=== PATIENT | male | born 1945 | race Caucasian/White ===

== ENCOUNTER 2016-12-14 12:33 | Emergency (ER) | payer MEDICARE ==
[2016-12-14 13:04] VITALS: BP 155/96
--- NOTE | 2016-12-14 14:04 | EDM.PDOC ---
ED HPI Trauma - General Chief Complaint: Upper Extremity Injury/Pain Stated Complaint: HURT LT SHOULDER & HIP Time Seen by Provider: 12/14/16 13:03 Source: Reports: Patient History Limitations: Reports: No limitations - History of Present Illness INITIAL COMMENTS - FREE TEXT/NARRATIVE: History of present illness: [This gentleman was stepping up onto a stool yesterday and [place] and it flipped and he fell onto his left shoulder and left hip. He has a bruised hip and is able ambulate on it to his left shoulder is the reason he came in he is wondering if it's broken as he is in so much pain. He is unable to abduct his left arm he needs had prior shoulder surgery for rotator cuff on that arm.] Review of systems: As per history of present illness and below otherwise all systems reviewed and negative. Past medical history: As per history of present illness and as reviewed below otherwise noncontributory. Surgical history: As per history of present illness and as reviewed below otherwise noncontributory. Social history: No reported history of drug or alcohol abuse. Family history: As per history of present illness and as reviewed below otherwise noncontributory. Physical exam: HEENT: Atraumatic, normocephalic, pupils reactive, negative for conjunctival pallor or scleral icterus, mucous membranes moist, throat clear, neck supple, nontender, trachea midline. Lungs: Clear to auscultation, breath sounds equal bilaterally, chest nontender. Heart: S1S2, regular, negative for clicks, rubs, or JVD. Abdomen: Soft, nondistended, nontender. Negative for masses or hepatosplenomegaly. Negative for costovertebral tenderness. Pelvis: Stable nontender. Genitourinary: Deferred. Rectal: Deferred. Extremities: He has diffuse tenderness about the left shoulder and is unable to AB duct at that arm no bruising is present at this time the x-rays do not show any fractures there do appear to be a couple screws from a prior surgery present. Neuro: Awake, alert, oriented. Cranial nerves II through XII unremarkable. Cerebellum unremarkable. Motor and sensory unremarkable throughout. Exam nonfocal. Diagnostics: [] Therapeutics: [] Impression: [Contusion left shoulder with possible rotator cuff] Plan: [He'll followup in the clinic if he is not recovering to his satisfaction and he may need MRI to evaluate his shoulder injury further] Definitive disposition and diagnosis as appropriate pending reevaluation and review of above. Allergies/ADRs: Allergies No Known Allergies Allergy (Verified 03/23/15 13:15) Home Medications: Ambulatory Orders Calcium Carbonate [Calcium] 1 tab PO DAILY 05/31/14 [Confirmed 12/14/16] Gabapentin [Neurontin] 600 mg PO BID 05/31/14 [Confirmed 12/14/16] Multivitamin with Minerals [Multiple Vitamin] 1 each PO ASDIRECTED 05/31/14 [ Confirmed 12/14/16] Venlafaxine [Effexor] 150 mg PO DAILY 05/31/14 [Confirmed 12/14/16] Warfarin [Coumadin] 2.5 mg PO ASDIRECTED 05/31/14 [Confirmed 12/14/16] Warfarin [Coumadin] 5 mg PO DAILY 05/31/14 [Confirmed 12/14/16] traMADol [Ultram] 50 mg PO Q6H PRN 05/31/14 [Confirmed 12/14/16] Ferrous Sulfate 324 mg PO BID 09/09/14 [Confirmed 12/14/16] Furosemide [Lasix] 20 mg PO ASDIRECTED 09/09/14 [Confirmed 12/14/16] metFORMIN [Glucophage] 1,000 mg PO BIDM 09/09/14 [Confirmed 12/14/16] Acetaminophen [Tylenol] 325 mg PO Q6H PRN 03/23/15 [Confirmed 12/14/16] Cyanocobalamin (Vitamin B-12) [B-12] 1,000 mcg PO DAILY 03/23/15 [Confirmed ] atorvaSTATin [Lipitor] 10 mg PO BEDTIME 03/23/15 [Confirmed 12/14/16] Past Medical History Other HEENT History: wears glasses Cardiovascular History: Reports: High cholesterol Gastrointestinal History: Reports: Other (see below) Other Gastrointestinal History: RNY 2010 Musculoskeletal History: Reports: Osteoarthritis Endocrine/Metabolic History: Reports: Diabetes, type II Oncologic (Cancer) History: Reports: Prostate - Infectious Disease History Infectious Disease History: Reports: Chicken pox, Measles, Mumps, Rubella - Past Surgical History Musculoskeletal Surgical History: Reports: Hip replacement Social & Family History - Tobacco Use Smoking Status *Q: Former Smoker Years of Tobacco use: 29 Packs/Tins Daily: 1 Used Tobacco, but Quit: Yes Month Tobacco Last Used: 1993 Second Hand Smoke Exposure: No - Caffeine Use Caffeine Use: Reports: Coffee Other Caffeine Use: 2. cups per day - Alcohol Use Days Per Week of Alcohol Use: 0 Number of Drinks Per Day: 1 Total Drinks Per Week: 0 - Recreational Drug Use Recreational Drug Use: No Review of Systems - Review of Systems Review Of Systems: ROS reveals no pertinent complaints other than HPI. Trauma Exam - Physical Exam Exam: See Below Course - Vital Signs Last Recorded V/S: Last Vital Signs Temp 37.1 C 12/14/16 13:00 Pulse 64 12/14/16 13:00 Resp 16 12/14/16 13:00 BP 155/96 H 12/14/16 13:00 Pulse Ox 94 L 12/14/16 13:00 - Orders/Labs/Meds Orders: Active Orders 24 hr Category Date Time Status Shoulder Comp Lt [CR] Stat Exams 12/14/16 13:07 Taken Departure - Departure Time of Disposition: 14:03 Disposition: Home, Self-Care 01 Condition: good Clinical Impression: Contusion of left shoulder Qualifiers: Encounter type: initial encounter Qualified Code(s): S40.012A - Contusion of left shoulder, initial encounter Forms: ED Department Discharge Additional Instructions: As per our discussion if in a few weeks or so and lateral right shoulder he should follow up in the clinic as you may need an MRI to further evaluate this injury - My Orders Last 24 Hours: My Active Orders 12/14/16 13:07 Shoulder Comp Lt [CR] Stat - Assessment/Plan Last 24 Hours: My Active Orders 12/14/16 13:07 Shoulder Comp Lt [CR] Stat
--- NOTE | 2016-12-15 08:52 | CR ---
Shoulder Comp Lt INDICATION: fall, pain FINDINGS: Mild hypertrophic changes AC and glenohumeral joints. Fixation screws proximal humerus. No evidence for acute fracture.
== END 2016-12-14 14:14 | disposition home or self-care (01) ==
LOC: JP.ED 12:33
DX: S40.012A Contusion of left shoulder, initial encounter (principal); E78.00 Pure hypercholesterolemia, unspecified; E11.9 Type 2 diabetes mellitus without complications; Z85.46 Personal history of malignant neoplasm of prostate; Z96.649 Presence of unspecified artificial hip joint; Z87.891 Personal history of nicotine dependence; Z79.01 Long term (current) use of anticoagulants; Z79.899 Other long term (current) drug therapy; W19.XXXA Unspecified fall, initial encounter
CPT/HCPCS: 73030-26-LT; 73030-LT; 99282; 99284

== ENCOUNTER 2017-11-17 02:55 | Emergency (ER) | payer MEDICARE ==
[2017-11-17 03:18] VITALS: BP 164/89
--- NOTE | 2017-11-17 03:29 | EDM.PDOC ---
ED HPI GENERAL MEDICAL PROBLEM - General Chief Complaint: Respiratory Problem Stated Complaint: [facility] Time Seen by Provider: 11/17/17 03:02 Source of Information: Reports: Patient, EMS, Old Records, RN Notes Reviewed History Limitations: Reports: No Limitations - History of Present Illness INITIAL COMMENTS - FREE TEXT/NARRATIVE: EMS arrival, did receive albuterol and ipratropium by nebulizer prior to arrival without any appreciable improvement Chief complaint Short of breath History of present illness 72-year-old male with history of osteoarthritis with joint replacements, type 2 diabetes, depression, prostate cancer and 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 Since last week he's had some shortness of breath. 8 days ago he found himself short of breath and had a get up and go walk to the mailbox outside a couple of times. Tonight however was much worse he couldn't lay down at all when he tried to go to bed at 11 PM. He tried is a home oxygen even that didn't help. It did help by getting up walking outside and sweeping the back of snow. He's had problems like this before where he gets short of breath laying down and he'll get up and fall asleep in his recliner. However tonight he was much worse and he couldn't sleep at all. He has been diagnosed with sleep apnea, has been prescribed C Pap machine but he finds he can't stand using it. He has home oxygen for use as needed He's noticed some 10 pounds awaking from his previous weight of 240 pounds. His ankles are bit more swollen usual and also there is some swelling in his left wrist. No chest pain but he does feel short of breath when he lays down. No nausea or vomiting no fever or chills. Was on his own with his dog EMS reports that his blood sugar was 341 tonight. - Related Data Allergies Allergy/AdvReac Type Severity Reaction Status Date / Time No Known Allergies Allergy Verified 03/23/15 13:15 Home Meds: Home Meds Calcium Carbonate [Calcium] 1 tab PO DAILY 05/31/14 [History] Gabapentin [Neurontin] 600 mg PO TID 05/31/14 [History] Multivitamin with Minerals [Multiple Vitamin] 1 each PO ASDIRECTED 05/31/14 [ History] Venlafaxine [Effexor] 150 mg PO DAILY 05/31/14 [History] Warfarin [Coumadin] 5 mg PO DAILY 05/31/14 [History] Warfarin [Coumadin] 7.5 mg PO ASDIRECTED 05/31/14 [History] traMADol [Ultram] 50 mg PO Q6H PRN 05/31/14 [History] Ferrous Sulfate 324 mg PO BID 09/09/14 [History] Furosemide [Lasix] 20 mg PO ASDIRECTED 09/09/14 [History] metFORMIN [Glucophage] 1,000 mg PO BIDM 09/09/14 [History] Acetaminophen [Tylenol] 325 mg PO Q6H PRN 03/23/15 [History] Cyanocobalamin (Vitamin B-12) [B-12] 1,000 mcg PO DAILY 03/23/15 [History] atorvaSTATin [Lipitor] 10 mg PO BEDTIME 03/23/15 [History] Bacitracin [Bacitracin Oint 1 GM] 1 dose TOP BID 11/17/17 [History] Betamethasone/Clotrimazole [Lotrisone] 1 applic TOP BID 11/17/17 [History] Calciium Citrate-Vitamin D 500 3 tab PO DAILY 11/17/17 [History] Cephalexin [Cephalexin] 500 mg PO Q8HR 11/17/17 [History] Cholecalciferol (Vitamin D3) [Vitamin D3] 5,000 unit PO DAILY 11/17/17 [History] Cyanocobalamin (Vitamin B-12) [Vitamin B-12] 1,000 mcg INJECT ASDIRECTED [History] Insulin Glargine,Hum.Rec.Anlog [Toujeo Solostar] 30 unit SQ DAILY 11/17/17 [ History] Magnesium Oxide [Magnesium] 400 mg PO DAILY 11/17/17 [History] Omeprazole 40 mg PO DAILY 11/17/17 [History] SitaGLIPtin [Januvia] 100 mg PO DAILY 11/17/17 [History] Triamcinolone Acetonide [Kenalog 0.1% Crm] 1 applic TOP TID 11/17/17 [History] glipiZIDE [Glucotrol] 2.2 mg PO BID 11/17/17 [History] Past Medical History Other HEENT History: wears glasses Cardiovascular History: Reports: High Cholesterol Gastrointestinal History: Reports: Other (See Below) Other Gastrointestinal History: RNY 2011 Musculoskeletal History: Reports: Osteoarthritis Endocrine/Metabolic History: Reports: Diabetes, Type II Oncologic (Cancer) History: Reports: Prostate - Infectious Disease History Infectious Disease History: Reports: Chicken Pox, Measles, Mumps, Rubella - Past Surgical History Musculoskeletal Surgical History: Reports: Hip Replacement Social & Family History - Tobacco Use Smoking Status *Q: Former Smoker Years of Tobacco use: 29 Packs/Tins Daily: 1 Used Tobacco, but Quit: Yes Month Tobacco Last Used: 1993 Second Hand Smoke Exposure: No - Caffeine Use Caffeine Use: Reports: Coffee Other Caffeine Use: 2. cups per day - Alcohol Use Days Per Week of Alcohol Use: 0 Number of Drinks Per Day: 1 Total Drinks Per Week: 0 - Recreational Drug Use Recreational Drug Use: No ED ROS GENERAL - Review of Systems Review Of Systems: See Below Constitutional: Reports: Weight Gain. Denies: Fever, Chills, Diaphoresis, Decreased Appetite HEENT: Denies: Ear Pain, Rhinitis, Throat Pain Respiratory: Reports: Shortness of Breath. Denies: Wheezing, Pleuritic Chest Pain, Cough, Sputum Cardiovascular: Reports: Dyspnea on Exertion, Other (Short of breath when supine ). Denies: Chest Pain, Blood Pressure Problem, Lightheadedness, Syncope Endocrine: Reports: No Symptoms GI/Abdominal: Reports: No Symptoms : Reports: No Symptoms Skin: Reports: Wound (Pressure sore on his left side) Neurological: Reports: No Symptoms ED EXAM, GENERAL - Physical Exam Exam: See Below Exam Limited By: No Limitations General Appearance: Alert, Anxious, Mild Distress, Other (Mild elevation of blood pressure other vital signs are normal including saturation, no difficulty speaking while he is sitting upright, color normal, quite talkative) Eye Exam: Bilateral Eye: EOMI, Normal Inspection Ears: Normal External Exam, Hearing Grossly Normal Nose: Normal Inspection, Normal Mucosa Throat/Mouth: Normal Inspection, Normal Oropharynx, Normal Voice Head: Atraumatic Neck: Normal Inspection, Supple, Other (No carotid bruit). No: Lymphadenopathy (R), Lymphadenopathy (L) Respiratory/Chest: No Respiratory Distress, No Accessory Muscle Use, Chest Non- Tender, Rales (Especially in the posterior aspect of his lungs). No: Prolonged Expiration Cardiovascular: Normal Peripheral Pulses, Regular Rate, Rhythm, No Murmur GI/Abdominal: Normal Bowel Sounds, Soft, Other (Ventral diastases) Back Exam: Normal Inspection Extremities: Non-Tender, Pedal Edema Neurological: Alert, Oriented, No Motor/Sensory Deficits Psychiatric: Normal Mood Skin Exam: Warm, Dry, Normal Color, No Rash Course - Vital Signs Last Recorded V/S: Last Vital Signs Temp 36.2 C 11/17/17 03:15 Pulse 80 11/17/17 03:15 Resp 20 11/17/17 03:15 BP 164/89 H 11/17/17 03:15 Pulse Ox 94 L 11/17/17 03:15 - Orders/Labs/Meds Orders: Active Orders 24 hr Category Date Time Status EKG Documentation Completion [RC] ASDIRECTED Care 11/17/17 03:22 Active Chest 1V Frontal [CR] Stat Exams 11/17/17 03:22 Taken EKG 12 Lead [EK] Routine Ther 11/17/17 03:21 Ordered Labs: Laboratory Tests 11/17/17 11/17/17 11/17/17 Range/Units 04:05 04:05 04:05 WBC 4.5 (4.5-11.0) K/uL RBC 4.77 (4.30-5.90) M/uL Hgb 15.0 (12.0-15.0) g/dL Hct 44.3 (40.0-54.0) % MCV 93 (80-98) fL MCH 31 (27-31) pg MCHC 34 (32-36) % Plt Count 179 (150-400) K/uL PT (9.5-12.0) sec INR (0.80-1.20) Sodium 137 L (140-148) mmol/L Potassium 4.2 (3.6-5.2) mmol/L Chloride 104 (100-108) mmol/L Carbon Dioxide 24 (21-32) mmol/L Anion Gap 13.2 (5.0-14.0) mmol/L BUN 9 (7-18) mg/dL Creatinine 0.7 L (0.8-1.3) mg/dL Est Cr Clr Drug Dosing 86.35 mL/min Estimated GFR (MDRD) > 60 (>60) Glucose 323 H (74-106) mg/dL Calcium 8.6 (8.5-10.1) mg/dL Troponin I < 0.017 (0.000-0.056) ng/mL NT-Pro-B Natriuret Pep 240 H (5-125) pg/mL 11/17/17 Range/Units 04:05 WBC (4.5-11.0) K/uL RBC (4.30-5.90) M/uL Hgb (12.0-15.0) g/dL Hct (40.0-54.0) % MCV (80-98) fL MCH (27-31) pg MCHC (32-36) % Plt Count (150-400) K/uL PT 13.8 H (9.5-12.0) sec INR 1.28 H D (0.80-1.20) Sodium (140-148) mmol/L Potassium (3.6-5.2) mmol/L Chloride (100-108) mmol/L Carbon Dioxide (21-32) mmol/L Anion Gap (5.0-14.0) mmol/L BUN (7-18) mg/dL Creatinine (0.8-1.3) mg/dL Est Cr Clr Drug Dosing mL/min Estimated GFR (MDRD) (>60) Glucose (74-106) mg/dL Calcium (8.5-10.1) mg/dL Troponin I (0.000-0.056) ng/mL NT-Pro-B Natriuret Pep (5-125) pg/mL - Re-Assessments/Exams Free Text/Narrative Re-Assessment/Exam: 11/17/17 03:31 72-year-old male with history of diabetes fluid retention DVT Presenting with shortness of breath but only when he is supine. Feels better when he is upright and breathing the outside cold air actually helps him feel better. Differential diagnosis includes CHF/pulmonary edema, infection, COPD, other pulmonary disease, heart disease Investigations 11/17/17 04:24 Chest x-ray by my interpretation shows cardiomegaly but no effusions or infiltrates EKG shows sinus rhythm with slight irregularity, left axis, nonspecific changes , rate 64 11/17/17 05:02 Patient slept in the room declined upwards Sodium 137 and remaining electively lites normal BUN/creatinine normal Troponin normal Modest increased in BMP Blood sugars 323 Likely fluid overload, increase furosemide to 40 mg daily for 1 week Follow-up primary care provider 1 week Departure - Departure Time of Disposition: 05:03 Disposition: Home, Self-Care 01 Condition: Good Clinical Impression: Fluid retention, Orthopnea - Discharge Information Instructions: Shortness of Breath, Adult, [id number] Referrals: PCP,None [Primary Care Provider] - Forms: ED Department Discharge Additional Instructions: Some weight gain swelling of your wrists and ankles indicates fluid retention This results in increased breathing when you are laying down, had seizure to breathe when you're reclining upwards. No sign of pneumonia or heart attack. Increase furosemide to 40 mg once daily for a week, and then make an appointment to get rechecked in a week Get checked sooner if you have severe shortness of breath, weakness, falling - My Orders Last 24 Hours: My Active Orders 11/17/17 03:21 EKG 12 Lead [EK] Routine 11/17/17 03:22 EKG Documentation Completion [RC] ASDIRECTED Chest 1V Frontal [CR] Stat - Assessment/Plan Last 24 Hours: My Active Orders 11/17/17 03:21 EKG 12 Lead [EK] Routine 11/17/17 03:22 EKG Documentation Completion [RC] ASDIRECTED Chest 1V Frontal [CR] Stat
--- NOTE | 2017-11-17 08:57 | CR ---
Chest 1V Frontal FINDINGS: There shallow lung volumes. The heart and vascular structures are normal in appearance. No infiltrates or effusions are demonstrated. The skeletal structures are unremarkable. IMPRESSION: 1. No acute findings.
== END 2017-11-17 06:06 | disposition home or self-care (01) ==
LOC: JP.ED 02:55
DX: R06.01 Orthopnea (principal); R60.9 Edema, unspecified; E78.00 Pure hypercholesterolemia, unspecified; E11.9 Type 2 diabetes mellitus without complications; Z79.01 Long term (current) use of anticoagulants; Z79.899 Other long term (current) drug therapy; Z79.4 Long term (current) use of insulin; Z87.891 Personal history of nicotine dependence; Z86.718 Personal history of other venous thrombosis and embolism; Z85.46 Personal history of malignant neoplasm of prostate
CPT/HCPCS: 36415; 71045; 71045-26; 80048; 83880; 84484; 85027; 85610; 93005; 99284; 99284-25

== ENCOUNTER 2018-06-16 20:54 | Emergency (ER) | payer MEDICARE ==
[2018-06-16] MEDS ORDERED: Ketorolac 30 MG/ML SDV IVPUSH ONE (20:57)
--- NOTE | 2018-06-16 21:02 | EDM.PDOC ---
ED HPI GENERAL MEDICAL PROBLEM - General Chief Complaint: Chest Pain Stated Complaint: MEDICAL VIA NORTH Time Seen by Provider: 06/16/18 20:55 Source of Information: Reports: Patient, EMS History Limitations: Reports: No Limitations - History of Present Illness INITIAL COMMENTS - FREE TEXT/NARRATIVE: 72-year-old males developed a very sharp sudden left anterior chest pain within the last hour, no radiation. This occurred about a half hour to an hour after he had fallen, however he did not strike his chest on anything. It is very painful to laugh or breathe, it seems to be waxing and waning. He called the ambulance because it was a 10 out of 10. He has no shortness of breath or diaphoresis, but it does hurt to breathe. It's very localized just under the nipple area of the left anterior chest. He has not had this pain in the past. Onset: Sudden Duration: Hour(s): (1-2 hours ago) Location: Reports: Chest Quality: Reports: Sharp, Stabbing Severity: Severe Improves with: Reports: None Worsens with: Reports: Breathing, Other (He says it "hurts to laugh".), Movement Associated Symptoms: Reports: No Other Symptoms Left Chest Pain Score (Numeric/FACES): 10 - Related Data Allergies Allergy/AdvReac Type Severity Reaction Status Date / Time No Known Allergies Allergy Verified 03/23/15 13:15 Home Meds: Home Meds Calcium Carbonate [Calcium] 1 tab PO DAILY 05/31/14 [History] Gabapentin [Neurontin] 600 mg PO TID 05/31/14 [History] Multivitamin with Minerals [Multiple Vitamin] 1 each PO ASDIRECTED 05/31/14 [ History] Venlafaxine [Effexor] 150 mg PO DAILY 05/31/14 [History] Warfarin [Coumadin] 5 mg PO DAILY 05/31/14 [History] Warfarin [Coumadin] 7.5 mg PO ASDIRECTED 05/31/14 [History] traMADol [Ultram] 50 mg PO Q6H PRN 05/31/14 [History] Ferrous Sulfate 324 mg PO BID 09/09/14 [History] Furosemide [Lasix] 20 mg PO ASDIRECTED 09/09/14 [History] metFORMIN [Glucophage] 1,000 mg PO BIDM 09/09/14 [History] Acetaminophen [Tylenol] 325 mg PO Q6H PRN 03/23/15 [History] Cyanocobalamin (Vitamin B-12) [B-12] 1,000 mcg PO DAILY 03/23/15 [History] atorvaSTATin [Lipitor] 10 mg PO BEDTIME 03/23/15 [History] Betamethasone/Clotrimazole [Lotrisone] 1 applic TOP BID 11/17/17 [History] Calciium Citrate-Vitamin D 500 3 tab PO DAILY 11/17/17 [History] Cholecalciferol (Vitamin D3) [Vitamin D3] 5,000 unit PO DAILY 11/17/17 [History] Cyanocobalamin (Vitamin B-12) [Vitamin B-12] 1,000 mcg INJECT ASDIRECTED [History] Insulin Glargine,Hum.Rec.Anlog [Toujeo Solostar] 30 unit SQ DAILY 11/17/17 [ History] Magnesium Oxide [Magnesium] 400 mg PO DAILY 11/17/17 [History] Omeprazole 40 mg PO DAILY 11/17/17 [History] SitaGLIPtin [Januvia] 100 mg PO DAILY 11/17/17 [History] Triamcinolone Acetonide [Kenalog 0.1% Crm] 1 applic TOP TID 11/17/17 [History] glipiZIDE [Glucotrol] 2.2 mg PO BID 11/17/17 [History] Past Medical History HEENT History: Reports: Cataract, Other (See Below) Other HEENT History: wears glasses Cardiovascular History: Reports: High Cholesterol Other Cardiovascular History: edema Gastrointestinal History: Reports: Other (See Below) Other Gastrointestinal History: RNY 2010 Musculoskeletal History: Reports: Osteoarthritis Other Musculoskeletal History: spondylosis cervical spine Endocrine/Metabolic History: Reports: Diabetes, Type II Hematologic History: Reports: B12 Deficiency Oncologic (Cancer) History: Reports: Prostate Dermatologic History: Reports: Other (See Below) Other Dermatologic History: ulcer sore inside left buttocks - Infectious Disease History Infectious Disease History: Reports: Chicken Pox, Measles, Mumps, Rubella - Past Surgical History Musculoskeletal Surgical History: Reports: Hip Replacement Social & Family History - Caffeine Use Caffeine Use: Reports: Coffee Other Caffeine Use: 2. cups per day ED ROS GENERAL - Review of Systems Review Of Systems: See Below Constitutional: Denies: Fever, Chills, Malaise Respiratory: Reports: Pleuritic Chest Pain. Denies: Shortness of Breath Cardiovascular: Reports: Chest Pain. Denies: Palpitations GI/Abdominal: Denies: Nausea, Vomiting : Reports: No Symptoms Skin: Reports: No Symptoms. Denies: Rash (No rash over sore area) Neurological: Reports: No Symptoms, Other ED EXAM, GENERAL - Physical Exam Exam: See Below Exam Limited By: No Limitations General Appearance: Alert, Anxious, Mild Distress Throat/Mouth: Inflammation Neck: Normal Inspection Respiratory/Chest: No Respiratory Distress, Lungs Clear, Other (He has reproducible sharp pain just lateral to the costochondral junction on the left anterior chest distal to the areolar area of the breast) GI/Abdominal: Soft, Non-Tender Neurological: Alert, Oriented Psychiatric: Anxious EKG INTERPRETATION Rhythm: NSR Course - Vital Signs Last Recorded V/S: Last Vital Signs Temp 97.9 F 06/16/18 21:43 Pulse 60 06/16/18 22:30 Resp 14 06/16/18 22:30 BP 101/65 06/16/18 22:30 Pulse Ox 99 06/16/18 22:30 - Orders/Labs/Meds Orders: Active Orders 24 hr Category Date Time Status EKG Documentation Completion [RC] ASDIRECTED Care 06/16/18 20:57 Active Chest 2V [CR] Routine Exams 06/16/18 20:57 Taken EKG 12 Lead [EK] Routine Ther 06/16/18 20:57 Ordered Labs: Laboratory Tests 06/16/18 06/16/18 Range/Units 20:57 20:57 WBC 4.9 (4.5-11.0) K/uL RBC 4.72 (4.30-5.90) M/uL Hgb 15.1 H (12.0-15.0) g/dL Hct 42.7 (40.0-54.0) % MCV 91 (80-98) fL MCH 32 H (27-31) pg MCHC 35 (32-36) % Plt Count 198 (150-400) K/uL Neut % (Auto) 60 (36-66) % Lymph % (Auto) 26 (24-44) % Nelson % (Auto) 11 H (2-6) % Eos % (Auto) 2 (2-4) % Baso % (Auto) 1 (0-1) % Sodium 132 L (140-148) mmol/L Potassium 4.0 (3.6-5.2) mmol/L Chloride 97 L (100-108) mmol/L Carbon Dioxide 21 (21-32) mmol/L Anion Gap 18.0 H (5.0-14.0) mmol/L BUN 10 (7-18) mg/dL Creatinine 0.9 (0.8-1.3) mg/dL Est Cr Clr Drug Dosing TNP Estimated GFR (MDRD) > 60 (>60) Glucose 447 H* (74-106) mg/dL Calcium 8.4 L (8.5-10.1) mg/dL Total Bilirubin 0.7 (0.2-1.0) mg/dL AST 29 (15-37) U/L ALT 36 (12-78) U/L Alkaline Phosphatase 104 (46-116) U/L Troponin I < 0.017 (0.000-0.056) ng/mL Total Protein 5.9 L (6.4-8.2) g/dL Albumin 3.2 L (3.4-5.0) g/dL Globulin 2.7 (2.3-3.5) g/dL Albumin/Globulin Ratio 1.2 (1.2-2.2) Meds: Medications Discontinued Medications Generic Name Dose Route Start Last Admin Trade Name Alfredq PRN Reason Stop Dose Admin Insulin Human Regular 10 unit 06/16/18 21:48 06/16/18 21:54 Novolin R SUBCUT 06/16/18 21:49 10 units ONETIME ONE Administration Protocol Ketorolac Tromethamine 30 mg 06/16/18 20:57 06/16/18 21:05 Toradol IVPUSH 06/16/18 20:58 30 mg ONETIME ONE Administration - Re-Assessments/Exams Free Text/Narrative Re-Assessment/Exam: 06/16/18 21:02 EKG with was done which was normal, no ST elevation or depression. His exam is more typical for an acute intercostal muscle spasm or neuralgia of the chest wall area. He was given 30 mg of IV Toradol, a CBC, CMP, two-view chest x-ray and troponin were obtained. 06/16/18 21:49 Two-view chest x-ray is normal, glucose level returned 447. He's been checking his glucose on a regular basis and it is usually 300 or higher. He has an appointment coming up with a diabetic support manager and they are considering increasing his insulin. 06/16/18 21:50 Remainder of labs were reassuring. He responded partially to the Toradol, he was given 10 units of subcutaneous regular insulin. I explained to the patient that this is musculoskeletal pain and does not need admission, but we can provide him with some stronger pain medication. Patient was supplied with 10 [place] 10 mg tablets Departure - Departure Time of Disposition: 23:02 Disposition: Home, Self-Care 01 Condition: Good Clinical Impression: Anterior chest wall pain - Discharge Information Instructions: Chest Wall Pain, [id number] Referrals: PCP,None [Primary Care Provider] - Forms: ED Department Discharge Care Plan Goals: Continue your current medications, use stronger pain medications as directed if needed. It's very important that you follow up with your diabetes health care provider to adjust her insulin. Return to the emergency room in the next few days if not improving satisfactorily with the chest pain. - My Orders Last 24 Hours: My Active Orders 06/16/18 20:57 EKG Documentation Completion [RC] ASDIRECTED Chest 2V [CR] Routine EKG 12 Lead [EK] Routine - Assessment/Plan Last 24 Hours: My Active Orders 06/16/18 20:57 EKG Documentation Completion [RC] ASDIRECTED Chest 2V [CR] Routine EKG 12 Lead [EK] Routine
[2018-06-16] MEDS ORDERED: Insulin Regular, Human 100 Units/ML 10 ML Vial SUBCUT ONE (21:48)
[2018-06-16 22:59] VITALS: BP 101/65
--- NOTE | 2018-06-17 08:51 | CR ---
CHEST: 2 view CLINICAL HISTORY:Dyspnea COMPARISON:11/17/2017 FINDINGS: The heart size, pulmonary vascular and hilar structures are normal. No infiltrate effusion or pneumothorax is seen. IMPRESSION: No acute cardiopulmonary process.
== END 2018-06-16 23:08 | disposition home or self-care (01) ==
LOC: JP.ED 20:54
DX: R07.89 Other chest pain (principal); E11.9 Type 2 diabetes mellitus without complications; Z79.01 Long term (current) use of anticoagulants; Z79.4 Long term (current) use of insulin; Z79.899 Other long term (current) drug therapy
CPT/HCPCS: 36415; 71046; 80053; 84484; 85025; 93005; 96374; 99285; A9270; J1885

== ENCOUNTER 2018-12-16 00:47 | Emergency (ER) | payer MEDICARE ==
--- NOTE | 2018-12-16 01:21 | EDM.PDOC ---
ED HPI GENERAL MEDICAL PROBLEM - General Chief Complaint: General Stated Complaint: FALL VIA [facility] Time Seen by Provider: 12/16/18 01:17 Source of Information: Reports: Patient History Limitations: Reports: No Limitations - History of Present Illness INITIAL COMMENTS - FREE TEXT/NARRATIVE: pt fell and landed on his buttocks. He was not able to get up so the ambulance was called. He did not have pain in his hips or pevis when he stood up He did have a bs of over 400. he has not been taking his meds as perscribed. He did have 3 drinks tonight. Onset: Today Duration: Hour(s): Location: Reports: Other (pt has a elevated bs. ) Associated Symptoms: Reports: Other (pt has a elevated bs. ) - Related Data Allergies Allergy/AdvReac Type Severity Reaction Status Date / Time No Known Allergies Allergy Verified 12/16/18 00:55 Home Meds: Home Meds Gabapentin [Neurontin] 600 mg PO DAILY 05/31/14 [History] Multivitamin with Minerals [Multiple Vitamin] 1 each PO ASDIRECTED 05/31/14 [ History] Venlafaxine [Effexor] 150 mg PO DAILY 05/31/14 [History] Warfarin [Coumadin] 5 mg PO DAILY 05/31/14 [History] Warfarin [Coumadin] 7.5 mg PO ASDIRECTED 05/31/14 [History] traMADol [Ultram] 1 - 2 tab PO Q6H PRN 05/31/14 [History] Ferrous Sulfate 324 mg PO DAILY 09/09/14 [History] Furosemide [Lasix] 40 mg PO ASDIRECTED 09/09/14 [History] metFORMIN [Glucophage] 1,000 mg PO BIDM 09/09/14 [History] Acetaminophen [Tylenol] 325 mg PO Q6H PRN 03/23/15 [History] Cyanocobalamin (Vitamin B-12) [B-12] 1,000 mcg PO DAILY 03/23/15 [History] atorvaSTATin [Lipitor] 10 mg PO BEDTIME 03/23/15 [History] Calciium Citrate-Vitamin D 500 3 tab PO DAILY 11/17/17 [History] Omeprazole 40 mg PO DAILY 11/17/17 [History] SitaGLIPtin [Januvia] 100 mg PO DAILY 11/17/17 [History] Triamcinolone Acetonide [Kenalog 0.1% Crm] 1 applic TOP TID 11/17/17 [History] Gabapentin [Neurontin] 300 mg PO BID 08/19/18 [History] Insulin Glargine,Hum.Rec.Anlog [Tounayelyo Solostar] 45 unit SQ DAILY 08/19/18 [ History] Phytonadione [Vitamin K] 100 mcg PO DAILY 08/19/18 [History] Past Medical History HEENT History: Reports: Cataract, Hard of Hearing, Impaired Vision, Other (See Below) Other HEENT History: tear film insufficiency. hyperopia with astigmatism and presbyopia Cardiovascular History: Reports: Arrhythmia, Blood Clots/VTE/DVT, High Cholesterol, Other (See Below) Other Cardiovascular History: edema. orthostatic hypotension. postphlebitic edema Respiratory History: Reports: COPD, Sleep Apnea Gastrointestinal History: Reports: Hemorrhoids, Other (See Below) Other Gastrointestinal History: RNY 2010. umbilical hernia Genitourinary History: Reports: Prostate Disorder Musculoskeletal History: Reports: Fracture, Osteoarthritis Other Musculoskeletal History: spondylosis cervical spine. degerative arthritis of cervical spine. chronic pain of right knee Psychiatric History: Reports: Aggressive/Hostile Behaviors, Depression, Other ( See Below) Other Psychiatric History: Registered sex offender Endocrine/Metabolic History: Reports: Diabetes, Type II, Obesity/BMI 30+ Hematologic History: Reports: B12 Deficiency, Other (See Below) Other Hematologic History: homozygous factor v leiden mutation Oncologic (Cancer) History: Reports: Prostate Other Oncologic History: had radiation therapy Dermatologic History: Reports: Decubitus Ulcer, Other (See Below) Other Dermatologic History: ulcer sore inside left buttocks - Infectious Disease History Infectious Disease History: Reports: Chicken Pox, Measles, Mumps, Shingles - Past Surgical History GI Surgical History: Reports: Appendectomy, Bariatric Procedure, Cholecystectomy Male Surgical History: Reports: Prostate Biopsy Musculoskeletal Surgical History: Reports: Hip Replacement Social & Family History - Family History Family Medical History: Noncontributory - Tobacco Use Smoking Status *Q: Former Smoker Used Tobacco, but Quit: Yes Month/Year Tobacco Last Used: 25 - Caffeine Use Caffeine Use: Reports: Coffee Other Caffeine Use: 2. cups per day - Recreational Drug Use Recreational Drug Use: No ED ROS GENERAL - Review of Systems Review Of Systems: See Below Constitutional: Reports: No Symptoms HEENT: Reports: No Symptoms Respiratory: Reports: No Symptoms Cardiovascular: Reports: No Symptoms Endocrine: Reports: High Glucose GI/Abdominal: Reports: No Symptoms : Reports: No Symptoms Musculoskeletal: Reports: Other (pt fell and was not able to get up. ) Skin: Reports: No Symptoms ED EXAM, GENERAL - Physical Exam Exam: See Below Free Text/Narrative:: pt had about 3 drinks and he fell down and he was not able to get up. The ambulance found him to have a elevated bs. He has not been taking his meds correctly. Exam Limited By: No Limitations General Appearance: Alert, Anxious, Mild Distress Ears: Normal TMs Nose: Normal Inspection Throat/Mouth: Normal Inspection Head: Atraumatic Neck: Normal Inspection Respiratory/Chest: No Respiratory Distress Cardiovascular: Regular Rate, Rhythm GI/Abdominal: Soft, Non-Tender (Male) Exam: Deferred Rectal (Males) Exam: Deferred Back Exam: Normal Inspection Extremities: Other (pt is not significantly uncomfortable when moved in his hips and pelvis. ) Neurological: Alert, Oriented, Normal Cognition Psychiatric: Normal Affect Course - Vital Signs Last Recorded V/S: Last Vital Signs Temp 35.7 C 12/16/18 01:02 Pulse 76 12/16/18 01:02 Resp 18 12/16/18 01:02 BP 155/91 H 12/16/18 01:02 Pulse Ox 100 12/16/18 01:02 - Orders/Labs/Meds Labs: Laboratory Tests 12/16/18 12/16/18 12/16/18 Range/Units 01:11 01:15 01:15 WBC 4.8 (4.5-11.0) K/uL RBC 4.72 (4.30-5.90) M/uL Hgb 15.1 H (12.0-15.0) g/dL Hct 44.0 (40.0-54.0) % MCV 93 (80-98) fL MCH 32 H (27-31) pg MCHC 34 (32-36) % Plt Count 208 (150-400) K/uL Neut % (Auto) 62 (36-66) % Lymph % (Auto) 26 (24-44) % Tift % (Auto) 8 H (2-6) % Eos % (Auto) 3 (2-4) % Baso % (Auto) 1 (0-1) % PT (9.5-12.0) sec INR (0.80-1.20) Sodium 136 L (140-148) mmol/L Potassium 3.6 (3.6-5.2) mmol/L Chloride 101 (100-108) mmol/L Carbon Dioxide 20 L (21-32) mmol/L Anion Gap 18.6 H (5.0-14.0) mmol/L BUN 14 (7-18) mg/dL Creatinine 1.0 (0.8-1.3) mg/dL Est Cr Clr Drug Dosing TNP Estimated GFR (MDRD) > 60 (>60) Glucose 370 H (74-106) mg/dL Calcium 8.6 (8.5-10.1) mg/dL Total Bilirubin 0.4 (0.2-1.0) mg/dL AST 16 (15-37) U/L ALT 18 (12-78) U/L Alkaline Phosphatase 81 (46-116) U/L Total Protein 6.1 L (6.4-8.2) g/dL Albumin 3.2 L (3.4-5.0) g/dL Globulin 2.9 (2.3-3.5) g/dL Albumin/Globulin Ratio 1.1 L (1.2-2.2) Urine Color Yellow Urine Appearance Clear Urine pH 5.0 (4.5-8.0) Ur Specific Slinger 1.010 (1.008-1.030) Urine Protein Negative (NEGATIVE) mg/dL Urine Glucose (UA) >1000 H (NEGATIVE) mg/dL Urine Ketones 15 H (NEGATIVE) mg/dL Urine Occult Blood Negative (NEGATIVE) Urine Nitrite Negative (NEGAITVE) Urine Bilirubin Negative (NEGATIVE) Urine Urobilinogen Normal (NORMAL) mg/dL Ur Leukocyte Esterase Negative (NEGATIVE) Urine RBC 0-5 (0-5) Urine WBC 0-5 (0-5) Ur Epithelial Cells Few Amorphous Sediment Not seen Urine Bacteria Few Urine Mucus Not seen 12/16/18 Range/Units 01:15 WBC (4.5-11.0) K/uL RBC (4.30-5.90) M/uL Hgb (12.0-15.0) g/dL Hct (40.0-54.0) % MCV (80-98) fL MCH (27-31) pg MCHC (32-36) % Plt Count (150-400) K/uL Neut % (Auto) (36-66) % Lymph % (Auto) (24-44) % Tift % (Auto) (2-6) % Eos % (Auto) (2-4) % Baso % (Auto) (0-1) % PT 13.5 H (9.5-12.0) sec INR 1.24 H (0.80-1.20) Sodium (140-148) mmol/L Potassium (3.6-5.2) mmol/L Chloride (100-108) mmol/L Carbon Dioxide (21-32) mmol/L Anion Gap (5.0-14.0) mmol/L BUN (7-18) mg/dL Creatinine (0.8-1.3) mg/dL Est Cr Clr Drug Dosing Estimated GFR (MDRD) (>60) Glucose (74-106) mg/dL Calcium (8.5-10.1) mg/dL Total Bilirubin (0.2-1.0) mg/dL AST (15-37) U/L ALT (12-78) U/L Alkaline Phosphatase (46-116) U/L Total Protein (6.4-8.2) g/dL Albumin (3.4-5.0) g/dL Globulin (2.3-3.5) g/dL Albumin/Globulin Ratio (1.2-2.2) Urine Color Urine Appearance Urine pH (4.5-8.0) Ur Specific Slinger (1.008-1.030) Urine Protein (NEGATIVE) mg/dL Urine Glucose (UA) (NEGATIVE) mg/dL Urine Ketones (NEGATIVE) mg/dL Urine Occult Blood (NEGATIVE) Urine Nitrite (NEGAITVE) Urine Bilirubin (NEGATIVE) Urine Urobilinogen (NORMAL) mg/dL Ur Leukocyte Esterase (NEGATIVE) Urine RBC (0-5) Urine WBC (0-5) Ur Epithelial Cells Amorphous Sediment Urine Bacteria Urine Mucus Meds: Medications Discontinued Medications Generic Name Dose Route Start Last Admin Trade Name Freq PRN Reason Stop Dose Admin Insulin Human Regular 4 unit 12/16/18 01:41 12/16/18 01:47 Humulin R SUBCUT 12/16/18 01:42 4 units ONETIME ONE Administration - Re-Assessments/Exams Free Text/Narrative Re-Assessment/Exam: 12/16/18 01:43 bs is 370. will give pt 4 units of regular insulin. His pelvis and hip xray looked normal. Departure - Departure Time of Disposition: 01:56 Disposition: Home, Self-Care 01 Condition: Fair Clinical Impression: Fall with no injury, Elevated glucose - Discharge Information Instructions: Fall Prevention in the Home, [id number], Hyperglycemia, Easy-to -Read Referrals: PCP,None [Primary Care Provider] - Forms: ED Department Discharge Care Plan Goals: please use meds as directed, watch diet, follow up with regular
[2018-12-16] MEDS ORDERED: Insulin Regular, Human 100 Units/ML 3 ML Vial SUBCUT ONE (01:41)
--- NOTE | 2018-12-16 01:48 | CRLCR ---
Indication: Injury and pain Technique: Pelvis and right hip 3 views Comparison: None Findings: Bones: Alignment is normal. No fractures or bone lesions. Hardware is present from a left hip arthroplasty. Joint spaces: Mild osteoarthritis is present in the right hip joint. Soft tissues: Unremarkable. Impression: No sign of acute injury. Dictated by Yung Rm MD @ 12/16/2018 1:47:11 AM Dictated by: Yung Rm MD @ 12/16/2018 01:47:16 (Electronically Signed)
[2018-12-16 02:04] VITALS: BP 155/91
== END 2018-12-16 02:43 | disposition home or self-care (01) ==
LOC: JP.ED 00:47
DX: Z04.3 Encounter for examination and observation following other accident (principal); E78.00 Pure hypercholesterolemia, unspecified; E11.9 Type 2 diabetes mellitus without complications; Z79.4 Long term (current) use of insulin; J44.9 Chronic obstructive pulmonary disease, unspecified; Z87.891 Personal history of nicotine dependence; Z79.899 Other long term (current) drug therapy; Z79.01 Long term (current) use of anticoagulants
CPT/HCPCS: 36415; 73502; 80053; 81001; 85025; 85610; 99283; J1815

== ENCOUNTER 2019-06-03 07:29 | Emergency (ER) | payer MEDICARE ==
[2019-06-03 07:38] VITALS: BP 107/67
[2019-06-03] MEDS ORDERED: Sodium Chloride 0.9% 10 ML Syringe FLUSH PRN (07:42)
[2019-06-03] MEDS ORDERED: Insulin Regular, Human 100 Units/ML 3 ML Vial SUBCUT ONE (07:53)
--- NOTE | 2019-06-03 07:58 | EDM.PDOC ---
ED HPI GENERAL MEDICAL PROBLEM - General Chief Complaint: General Stated Complaint: WEAKNESS Time Seen by Provider: 06/03/19 07:49 Source of Information: Reports: Patient, EMS, Old Records, RN History Limitations: Reports: No Limitations - History of Present Illness INITIAL COMMENTS - FREE TEXT/NARRATIVE: 73 yo male brought in via EMS this morning for weakness and multiple falls at home. Lives alone. BS running in the 400's today. Not taking all of his meds. Patient is stating that he knows he can't continue living alone, needs more assistance like assisted living. Has no injuries from his falls. Has lived alone for the past 25 yrs except for his dog. Has neuropathy in both lower legs. Had a whiskey and regular 7 up last night before bed. Denies any pain, or nausea. Feels warm at times, but has not had a fever when he has checked his temperature. 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) - Related Data Allergies Allergy/AdvReac Type Severity Reaction Status Date / Time No Known Allergies Allergy Verified 12/16/18 00:55 Home Meds: Home Meds Gabapentin [Neurontin] 600 mg PO DAILY 05/31/14 [History] Multivitamin with Minerals [Multiple Vitamin] 1 each PO ASDIRECTED 05/31/14 [ History] Venlafaxine [Effexor] 150 mg PO DAILY 05/31/14 [History] Warfarin [Coumadin] 5 mg PO DAILY 05/31/14 [History] Warfarin [Coumadin] 7.5 mg PO ASDIRECTED 05/31/14 [History] traMADol [Ultram] 1 - 2 tab PO Q6H PRN 05/31/14 [History] Ferrous Sulfate 324 mg PO DAILY 09/09/14 [History] Furosemide [Lasix] 40 mg PO ASDIRECTED 09/09/14 [History] metFORMIN [Glucophage] 1,000 mg PO BIDM 09/09/14 [History] Acetaminophen [Tylenol] 325 mg PO Q6H PRN 03/23/15 [History] Cyanocobalamin (Vitamin B-12) [B-12] 1,000 mcg PO DAILY 03/23/15 [History] atorvaSTATin [Lipitor] 10 mg PO BEDTIME 03/23/15 [History] Calciium Citrate-Vitamin D 500 3 tab PO DAILY 11/17/17 [History] Omeprazole 40 mg PO DAILY 11/17/17 [History] SitaGLIPtin [Januvia] 100 mg PO DAILY 11/17/17 [History] Triamcinolone Acetonide [Kenalog 0.1% Crm] 1 applic TOP TID 11/17/17 [History] Gabapentin [Neurontin] 300 mg PO BID 08/19/18 [History] Insulin Glargine,Hum.Rec.Anlog [Toujeo Solostar] 45 unit SQ DAILY 08/19/18 [ History] Phytonadione [Vitamin K] 100 mcg PO DAILY 08/19/18 [History] Potassium Chloride 20 meq PO BID #20 tablet.er 06/03/19 [Rx] Past Medical History HEENT History: Reports: Cataract, Hard of Hearing, Impaired Vision, Other (See Below) Other HEENT History: tear film insufficiency. hyperopia with astigmatism and presbyopia Cardiovascular History: Reports: Arrhythmia, Blood Clots/VTE/DVT, High Cholesterol, Other (See Below) Other Cardiovascular History: edema. orthostatic hypotension. postphlebitic edema Respiratory History: Reports: COPD, Sleep Apnea Gastrointestinal History: Reports: Hemorrhoids, Other (See Below) Other Gastrointestinal History: RNY 2010. umbilical hernia Genitourinary History: Reports: Prostate Disorder Musculoskeletal History: Reports: Fracture, Osteoarthritis Other Musculoskeletal History: spondylosis cervical spine. degerative arthritis of cervical spine. chronic pain of right knee Psychiatric History: Reports: Aggressive/Hostile Behaviors, Depression, Other ( See Below) Other Psychiatric History: Registered sex offender Endocrine/Metabolic History: Reports: Diabetes, Type II, Obesity/BMI 30+ Hematologic History: Reports: B12 Deficiency, Other (See Below) Other Hematologic History: homozygous factor v leiden mutation Oncologic (Cancer) History: Reports: Prostate Other Oncologic History: had radiation therapy Dermatologic History: Reports: Decubitus Ulcer, Other (See Below) Other Dermatologic History: ulcer sore inside left buttocks - Infectious Disease History Infectious Disease History: Reports: Chicken Pox, Measles, Mumps, Shingles - Past Surgical History Head Surgeries/Procedures: Reports: None GI Surgical History: Reports: Appendectomy, Bariatric Procedure, Cholecystectomy Male Surgical History: Reports: Prostate Biopsy Musculoskeletal Surgical History: Reports: Hip Replacement Social & Family History - Family History Family Medical History: Noncontributory - Tobacco Use Smoking Status *Q: Former Smoker Used Tobacco, but Quit: Yes Month/Year Tobacco Last Used: 1994 Second Hand Smoke Exposure: No - Caffeine Use Caffeine Use: Reports: Coffee, Soda Other Caffeine Use: 2. cups per day - Alcohol Use Days Per Week of Alcohol Use: 7 Number of Drinks Per Day: 1 Total Drinks Per Week: 7 - Recreational Drug Use Recreational Drug Use: No ED ROS GENERAL - Review of Systems Review Of Systems: See Below Constitutional: Reports: Weakness (generalized), Weight Loss (is trying to lose weight). Denies: Fever, Chills, Diaphoresis, Decreased Appetite HEENT: Reports: No Symptoms Respiratory: Reports: No Symptoms Cardiovascular: Reports: No Symptoms Endocrine: Reports: High Glucose GI/Abdominal: Reports: Other (hx of gastric bypass) : Reports: No Symptoms Musculoskeletal: Reports: No Symptoms Skin: Reports: No Symptoms Neurological: Reports: Tingling (both legs below the knees.), Difficulty Walking (due to weakness), Weakness (generalized) Psychiatric: Reports: No Symptoms ED EXAM, GENERAL - Physical Exam Exam: See Below Exam Limited By: No Limitations General Appearance: Alert, WD/WN, No Apparent Distress Eye Exam: Right Eye: Foreign Body, Bilateral Eye: Normal Inspection, PERRL Ears: Normal External Exam, Normal Canal, Hearing Grossly Normal Ear Exam: Bilateral Ear: Auricle Normal, Canal Normal Nose: Normal Inspection, No Blood Throat/Mouth: Normal Inspection, Normal Lips, Normal Oropharynx, Normal Voice, No Airway Compromise Head: Atraumatic, Normocephalic Neck: Normal Inspection Respiratory/Chest: No Respiratory Distress, Lungs Clear, Normal Breath Sounds, No Accessory Muscle Use Cardiovascular: Regular Rate, Rhythm, No Edema GI/Abdominal: Normal Bowel Sounds, Soft, Non-Tender, No Distention Extremities: Normal Inspection, Normal Range of Motion, Non-Tender, No Pedal Edema Neurological: Alert, Oriented, CN II-XII Intact, Normal Cognition, No Motor/ Sensory Deficits Psychiatric: Normal Affect, Normal Mood Skin Exam: Warm, Dry, Intact, Normal Color, No Rash Course - Vital Signs Text/Narrative:: Dr. Castellano called @ [facility] fingerstick glc before discharge 210 Patient declined admission. Last Recorded V/S: Last Vital Signs Temp 36.2 C 06/03/19 07:39 Pulse 58 L 06/03/19 07:39 Resp 18 06/03/19 07:39 BP 107/67 06/03/19 07:39 Pulse Ox 100 06/03/19 07:39 - Orders/Labs/Meds Orders: Active Orders 24 hr Category Date Time Status Patient Status Manage Transfer [TRANSFER] Routine ADT 06/03/19 08:44 Active Cardiac Monitoring [RC] .As Directed Care 06/03/19 07:43 Active GLUCOSE POC LAB TO COLLECT [POC] Stat Lab 06/03/19 10:30 Ordered UA W/MICROSCOPIC [URIN] Stat Lab 06/03/19 07:42 Ordered NS + KCl 20mEq/L [Normal Saline with 20 mEq KCl] 1,000 Med 06/03/19 08:30 Active ml IV ASDIRECTED Sodium Chloride 0.9% [Saline Flush] Med 06/03/19 07:42 Active 10 ml FLUSH ASDIRECTED PRN Saline Lock Insert [OM.PC] Routine Oth 06/03/19 07:42 Ordered Resuscitation Status Routine Resus Stat 06/03/19 08:48 Ordered Medication Orders Potassium Chloride/Sodium Chloride (Normal Saline With 20 Meq Kcl) 1,000 mls @ 500 mls/hr IV ASDIRECTED SETH Last Admin: 06/03/19 08:44 Dose: 500 mls/hr Sodium Chloride (Saline Flush) 10 ml FLUSH ASDIRECTED PRN PRN Reason: Keep Vein Open Last Admin: 06/03/19 08:06 Dose: 10 ml Labs: Laboratory Tests 06/03/19 06/03/19 06/03/19 Range/Units 07:50 07:50 07:50 WBC 2.9 L (4.5-11.0) K/uL RBC 4.88 (4.30-5.90) M/uL Hgb 15.2 H (12.0-15.0) g/dL Hct 44.7 (40.0-54.0) % MCV 92 (80-98) fL MCH 31 (27-31) pg MCHC 34 (32-36) % Plt Count 205 (150-400) K/uL PT 22.1 H (9.5-12.0) sec INR 2.14 H (0.80-1.20) Sodium 136 L (140-148) mmol/L Potassium 3.3 L (3.6-5.2) mmol/L Chloride 100 (100-108) mmol/L Carbon Dioxide 21 (21-32) mmol/L Anion Gap 18.3 H (5.0-14.0) mmol/L BUN 6 L D (7-18) mg/dL Creatinine 0.9 (0.8-1.3) mg/dL Est Cr Clr Drug Dosing 70.92 mL/min Estimated GFR (MDRD) > 60 (>60) Glucose 470 H* (74-106) mg/dL Calcium 8.5 (8.5-10.1) mg/dL Magnesium (1.8-2.4) mg/dL Troponin I < 0.017 (0.000-0.056) ng/mL 06/03/19 Range/Units 07:50 WBC (4.5-11.0) K/uL RBC (4.30-5.90) M/uL Hgb (12.0-15.0) g/dL Hct (40.0-54.0) % MCV (80-98) fL MCH (27-31) pg MCHC (32-36) % Plt Count (150-400) K/uL PT (9.5-12.0) sec INR (0.80-1.20) Sodium (140-148) mmol/L Potassium (3.6-5.2) mmol/L Chloride (100-108) mmol/L Carbon Dioxide (21-32) mmol/L Anion Gap (5.0-14.0) mmol/L BUN (7-18) mg/dL Creatinine (0.8-1.3) mg/dL Est Cr Clr Drug Dosing mL/min Estimated GFR (MDRD) (>60) Glucose (74-106) mg/dL Calcium (8.5-10.1) mg/dL Magnesium 1.7 L (1.8-2.4) mg/dL Troponin I (0.000-0.056) ng/mL Meds: Medications Generic Name Dose Route Start Last Admin Trade Name Freq PRN Reason Stop Dose Admin Potassium Chloride/Sodium Chloride 1,000 mls @ 500 mls/hr 06/03/19 08:30 03/16 08:44 Normal Saline With 20 Meq Kcl IV 500 mls/hr ASDIRECTED SETH Administration Sodium Chloride 10 ml 06/03/19 07:42 06/03/19 08:06 Saline Flush FLUSH 10 ml ASDIRECTED PRN Administration Keep Vein Open Discontinued Medications Generic Name Dose Route Start Last Admin Trade Name Paulino PRN Reason Stop Dose Admin Insulin Human Regular 20 unit 06/03/19 07:53 06/03/19 08:08 Humulin R SUBCUT 06/03/19 07:54 20 units ONETIME ONE Administration Magnesium Oxide 400 mg 06/03/19 09:31 06/03/19 10:04 Magnesium Oxide PO 06/03/19 09:32 400 mg ONETIME ONE Administration Potassium Chloride 40 meq 06/03/19 08:20 06/03/19 08:44 Potassium Chloride PO 06/03/19 08:21 40 meq ONETIME ONE Administration Departure - Departure Time of Disposition: 10:40 Disposition: Home, Self-Care 01 Condition: Fair Clinical Impression: Elevated blood sugar, Hypokalemia, Generalized weakness, Fall in elderly patient - Discharge Information *PRESCRIPTION DRUG MONITORING PROGRAM REVIEWED*: No *COPY OF PRESCRIPTION DRUG MONITORING REPORT IN PATIENT RADHA: No Prescriptions: Potassium Chloride 20 meq PO BID #20 tablet.er Referrals: PCP,None [Primary Care Provider] - Forms: ED Department Discharge Additional Instructions: Take the newly prescribed potassium supplement as directed until gone. Take ALL your previously prescribed medicines as directed by your doctor. Recheck with your doctor early next week, call for an appt. Return as needed. - My Orders Last 24 Hours: My Active Orders 06/03/19 07:42 UA W/MICROSCOPIC [URIN] Stat Sodium Chloride 0.9% [Saline Flush] 10 ml FLUSH ASDIRECTED PRN Saline Lock Insert [OM.PC] Routine 06/03/19 07:43 Cardiac Monitoring [RC] .As Directed 06/03/19 08:30 NS + KCl 20mEq/L [Normal Saline with 20 mEq KCl] 1,000 ml IV ASDIRECTED 06/03/19 10:30 GLUCOSE POC LAB TO COLLECT [POC] Stat - Assessment/Plan Last 24 Hours: My Active Orders 06/03/19 07:42 UA W/MICROSCOPIC [URIN] Stat Sodium Chloride 0.9% [Saline Flush] 10 ml FLUSH ASDIRECTED PRN Saline Lock Insert [OM.PC] Routine 06/03/19 07:43 Cardiac Monitoring [RC] .As Directed 06/03/19 08:30 NS + KCl 20mEq/L [Normal Saline with 20 mEq KCl] 1,000 ml IV ASDIRECTED 06/03/19 10:30 GLUCOSE POC LAB TO COLLECT [POC] Stat
[2019-06-03] MEDS ORDERED: Potassium Chloride 10 MEQ Cap.ER PO ONE (08:20)
[2019-06-03] MEDS ORDERED: NS + KCl 20mEq/L 1,000 ML IV SCH (08:30)
--- NOTE | 2019-06-03 08:53 | PCM.HP.2 ---
H&P History of Present Illness - General Date of Service: 06/03/19 Admit Problem/Dx: Admission Diagnosis/Problem Admission Diagnosis/Problem Weakness - Related Data Allergies/Adverse Reactions: Allergies Allergy/AdvReac Type Severity Reaction Status Date / Time No Known Allergies Allergy Verified 12/16/18 00:55 Home Medications: Home Meds Gabapentin [Neurontin] 600 mg PO DAILY 05/31/14 [History] Multivitamin with Minerals [Multiple Vitamin] 1 each PO ASDIRECTED 05/31/14 [ History] Venlafaxine [Effexor] 150 mg PO DAILY 05/31/14 [History] Warfarin [Coumadin] 5 mg PO DAILY 05/31/14 [History] Warfarin [Coumadin] 7.5 mg PO ASDIRECTED 05/31/14 [History] traMADol [Ultram] 1 - 2 tab PO Q6H PRN 05/31/14 [History] Ferrous Sulfate 324 mg PO DAILY 09/09/14 [History] Furosemide [Lasix] 40 mg PO ASDIRECTED 09/09/14 [History] metFORMIN [Glucophage] 1,000 mg PO BIDM 09/09/14 [History] Acetaminophen [Tylenol] 325 mg PO Q6H PRN 03/23/15 [History] Cyanocobalamin (Vitamin B-12) [B-12] 1,000 mcg PO DAILY 03/23/15 [History] atorvaSTATin [Lipitor] 10 mg PO BEDTIME 03/23/15 [History] Calciium Citrate-Vitamin D 500 3 tab PO DAILY 11/17/17 [History] Omeprazole 40 mg PO DAILY 11/17/17 [History] SitaGLIPtin [Januvia] 100 mg PO DAILY 11/17/17 [History] Triamcinolone Acetonide [Kenalog 0.1% Crm] 1 applic TOP TID 11/17/17 [History] Gabapentin [Neurontin] 300 mg PO BID 08/19/18 [History] Insulin Glargine,Hum.Rec.Anlog [Touchelo Solostar] 45 unit SQ DAILY 08/19/18 [ History] Phytonadione [Vitamin K] 100 mcg PO DAILY 08/19/18 [History] Past Medical History HEENT History: Reports: Cataract, Hard of Hearing, Impaired Vision, Other (See Below) Other HEENT History: tear film insufficiency. hyperopia with astigmatism and presbyopia Cardiovascular History: Reports: Arrhythmia, Blood Clots/VTE/DVT, High Cholesterol, Other (See Below) Other Cardiovascular History: edema. orthostatic hypotension. postphlebitic edema Respiratory History: Reports: COPD, Sleep Apnea Gastrointestinal History: Reports: Hemorrhoids, Other (See Below) Other Gastrointestinal History: RNY 2010. umbilical hernia Genitourinary History: Reports: Prostate Disorder Musculoskeletal History: Reports: Fracture, Osteoarthritis Other Musculoskeletal History: spondylosis cervical spine. degerative arthritis of cervical spine. chronic pain of right knee Psychiatric History: Reports: Aggressive/Hostile Behaviors, Depression, Other ( See Below) Other Psychiatric History: Registered sex offender Endocrine/Metabolic History: Reports: Diabetes, Type II, Obesity/BMI 30+ Hematologic History: Reports: B12 Deficiency, Other (See Below) Other Hematologic History: homozygous factor v leiden mutation Oncologic (Cancer) History: Reports: Prostate Other Oncologic History: had radiation therapy Dermatologic History: Reports: Decubitus Ulcer, Other (See Below) Other Dermatologic History: ulcer sore inside left buttocks - Infectious Disease History Infectious Disease History: Reports: Chicken Pox, Measles, Mumps, Shingles - Past Surgical History Head Surgeries/Procedures: Reports: None GI Surgical History: Reports: Appendectomy, Bariatric Procedure, Cholecystectomy Male Surgical History: Reports: Prostate Biopsy Musculoskeletal Surgical History: Reports: Hip Replacement Social & Family History - Family History Family Medical History: Noncontributory - Tobacco Use Smoking Status *Q: Former Smoker Used Tobacco, but Quit: Yes Month/Year Tobacco Last Used: 1994 Second Hand Smoke Exposure: No - Caffeine Use Caffeine Use: Reports: Coffee, Soda Other Caffeine Use: 2. cups per day - Alcohol Use Days Per Week of Alcohol Use: 7 Number of Drinks Per Day: 1 Total Drinks Per Week: 7 - Recreational Drug Use Recreational Drug Use: No Exam - Vital Signs Vital Signs: Last Vital Signs Temp 97.1 F 06/03/19 07:39 Pulse 58 L 06/03/19 07:39 Resp 18 06/03/19 07:39 BP 107/67 06/03/19 07:39 Pulse Ox 100 06/03/19 07:39 Weight: 230 lb - Patient Data Lab Results Last 24 hrs: Laboratory Results - last 24 hr 06/03/19 06/03/19 06/03/19 Range/Units 07:50 07:50 07:50 WBC 2.9 L (4.5-11.0) K/uL RBC 4.88 (4.30-5.90) M/uL Hgb 15.2 H (12.0-15.0) g/dL Hct 44.7 (40.0-54.0) % MCV 92 (80-98) fL MCH 31 (27-31) pg MCHC 34 (32-36) % Plt Count 205 (150-400) K/uL PT 22.1 H (9.5-12.0) sec INR 2.14 H (0.80-1.20) Sodium 136 L (140-148) mmol/L Potassium 3.3 L (3.6-5.2) mmol/L Chloride 100 (100-108) mmol/L Carbon Dioxide 21 (21-32) mmol/L Anion Gap 18.3 H (5.0-14.0) mmol/L BUN 6 L D (7-18) mg/dL Creatinine 0.9 (0.8-1.3) mg/dL Est Cr Clr Drug Dosing 70.92 mL/min Estimated GFR (MDRD) > 60 (>60) Glucose 470 H* (74-106) mg/dL Calcium 8.5 (8.5-10.1) mg/dL Magnesium (1.8-2.4) mg/dL Troponin I < 0.017 (0.000-0.056) ng/mL 06/03/19 Range/Units 07:50 WBC (4.5-11.0) K/uL RBC (4.30-5.90) M/uL Hgb (12.0-15.0) g/dL Hct (40.0-54.0) % MCV (80-98) fL MCH (27-31) pg MCHC (32-36) % Plt Count (150-400) K/uL PT (9.5-12.0) sec INR (0.80-1.20) Sodium (140-148) mmol/L Potassium (3.6-5.2) mmol/L Chloride (100-108) mmol/L Carbon Dioxide (21-32) mmol/L Anion Gap (5.0-14.0) mmol/L BUN (7-18) mg/dL Creatinine (0.8-1.3) mg/dL Est Cr Clr Drug Dosing mL/min Estimated GFR (MDRD) (>60) Glucose (74-106) mg/dL Calcium (8.5-10.1) mg/dL Magnesium 1.7 L (1.8-2.4) mg/dL Troponin I (0.000-0.056) ng/mL Result Diagrams: 06/03/19 07:50 06/03/19 07:50 Orders Last 24hrs: Active Orders 24 hr Category Date Time Status Patient Status Manage Transfer [TRANSFER] Routine ADT 06/03/19 08:44 Ordered Cardiac Monitoring [RC] .As Directed Care 06/03/19 07:43 Active UA W/MICROSCOPIC [URIN] Stat Lab 06/03/19 07:42 Ordered NS + KCl 20mEq/L [Normal Saline with 20 mEq KCl] 1,000 Med 06/03/19 08:30 Active ml IV ASDIRECTED Sodium Chloride 0.9% [Saline Flush] Med 06/03/19 07:42 Active 10 ml FLUSH ASDIRECTED PRN Saline Lock Insert [OM.PC] Routine Oth 06/03/19 07:42 Ordered Resuscitation Status Routine Resus Stat 06/03/19 08:48 Ordered Medication Orders Potassium Chloride/Sodium Chloride (Normal Saline With 20 Meq Kcl) 1,000 mls @ 500 mls/hr IV ASDIRECTED SETH Last Admin: 06/03/19 08:44 Dose: 500 mls/hr Sodium Chloride (Saline Flush) 10 ml FLUSH ASDIRECTED PRN PRN Reason: Keep Vein Open Last Admin: 06/03/19 08:06 Dose: 10 ml
[2019-06-03] MEDS ORDERED: Magnesium Oxide 400 MG Tab PO ONE (09:31)
--- NOTE | 2019-06-03 10:57 | PCM.SN ---
- Free Text/Narrative Note: I had been asked to see this patient in the emergency department by Dr. Aguero for admission. When I arrived to see the patient he refused admission and requested discharge to home. No further evaluation or intervention was performed because the patient's wish not to be admitted.
== END 2019-06-03 13:41 | disposition home or self-care (01) ==
LOC: JP.ED 07:29
DX: E11.65 Type 2 diabetes mellitus with hyperglycemia (principal); E87.6 Hypokalemia; C61 Malignant neoplasm of prostate; E11.40 Type 2 diabetes mellitus with diabetic neuropathy, unspecified; E78.00 Pure hypercholesterolemia, unspecified; J44.9 Chronic obstructive pulmonary disease, unspecified; F32.9 Major depressive disorder, single episode, unspecified; Z79.01 Long term (current) use of anticoagulants; Z79.4 Long term (current) use of insulin; Z79.899 Other long term (current) drug therapy; Z87.891 Personal history of nicotine dependence; Z86.718 Personal history of other venous thrombosis and embolism; W19.XXXA Unspecified fall, initial encounter
CPT/HCPCS: 36415; 80048; 82962; 83735; 84484; 85027; 85610; 96365; 96366; 99284; A9270; J1815; J3480

== ENCOUNTER 2019-10-16 22:32 | Emergency (ER) | payer MEDICARE ==
[2019-10-16 22:53] VITALS: BP 113/81; PULSE 89
--- NOTE | 2019-10-16 22:59 | EDM.PDOC ---
ED HPI GENERAL MEDICAL PROBLEM - General Chief Complaint: Lower Extremity Injury/Pain Stated Complaint: LEG PAIN Time Seen by Provider: 10/16/19 22:51 Source of Information: Reports: Patient History Limitations: Reports: No Limitations - History of Present Illness INITIAL COMMENTS - FREE TEXT/NARRATIVE: Patient presents from home describing intense left ankle pain over the last several hours without apparent injury. He has a history of multiple medical conditions including diabetes and he does have diabetic neuropathy. 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 His last INR was 2.7 on 12 October. Parts of his feet have no feeling and so he doesn't always know if he may have injured the foot or ankle but he doesn't recall any particular near fall or stumble. The inside of the ankle and the anterior portion are very uncomfortable, the lateral aspect is not as bad. He doesn't move around much at home and when he does he uses a cane for assistance. He states that his blood glucoses have been in the 300 and 400 range recently. Onset: Today Location: Reports: Lower Extremity, Left Quality: Reports: Ache, Sharp, Stabbing Severity: Moderate Improves with: Reports: None Worsens with: Reports: Movement Associated Symptoms: Reports: No Other Symptoms Left Leg Pain Score (Numeric/FACES): 10 - Related Data Allergies Allergy/AdvReac Type Severity Reaction Status Date / Time No Known Allergies Allergy Verified 12/16/18 00:55 Home Meds: Home Meds Gabapentin [Neurontin] 600 mg PO DAILY 05/31/14 [History] Multivitamin with Minerals [Multiple Vitamin] 1 each PO ASDIRECTED 05/31/14 [ History] Venlafaxine [Effexor] 150 mg PO DAILY 05/31/14 [History] Warfarin [Coumadin] 5 mg PO DAILY 05/31/14 [History] Warfarin [Coumadin] 7.5 mg PO ASDIRECTED 05/31/14 [History] traMADol [Ultram] 1 - 2 tab PO Q6H PRN 05/31/14 [History] Ferrous Sulfate 324 mg PO DAILY 09/09/14 [History] Furosemide [Lasix] 40 mg PO ASDIRECTED 09/09/14 [History] metFORMIN [Glucophage] 1,000 mg PO BIDM 09/09/14 [History] Acetaminophen [Tylenol] 325 mg PO Q6H PRN 03/23/15 [History] Cyanocobalamin (Vitamin B-12) [B-12] 1,000 mcg PO DAILY 03/23/15 [History] atorvaSTATin [Lipitor] 10 mg PO BEDTIME 03/23/15 [History] Calciium Citrate-Vitamin D 500 3 tab PO DAILY 11/17/17 [History] Omeprazole 40 mg PO DAILY 11/17/17 [History] SitaGLIPtin [Januvia] 100 mg PO DAILY 11/17/17 [History] Triamcinolone Acetonide [Kenalog 0.1% Crm] 1 applic TOP TID 11/17/17 [History] Gabapentin [Neurontin] 300 mg PO BID 08/19/18 [History] Insulin Glargine,Hum.Rec.Anlog [Toujeo Solostar] 45 unit SQ DAILY 08/19/18 [ History] Phytonadione [Vitamin K] 100 mcg PO DAILY 08/19/18 [History] Potassium Chloride 20 meq PO BID #20 tablet.er 06/03/19 [Rx] Past Medical History HEENT History: Reports: Cataract, Hard of Hearing, Impaired Vision, Other (See Below) Other HEENT History: tear film insufficiency. hyperopia with astigmatism and presbyopia Cardiovascular History: Reports: Arrhythmia, Blood Clots/VTE/DVT, High Cholesterol, Other (See Below) Other Cardiovascular History: edema. orthostatic hypotension. postphlebitic edema Respiratory History: Reports: COPD, Sleep Apnea Gastrointestinal History: Reports: Hemorrhoids, Other (See Below) Other Gastrointestinal History: RNY 2010. umbilical hernia Genitourinary History: Reports: Prostate Disorder Musculoskeletal History: Reports: Fracture, Osteoarthritis Other Musculoskeletal History: spondylosis cervical spine. degerative arthritis of cervical spine. chronic pain of right knee Psychiatric History: Reports: Aggressive/Hostile Behaviors, Depression, Other ( See Below) Other Psychiatric History: Registered sex offender Endocrine/Metabolic History: Reports: Diabetes, Type II, Obesity/BMI 30+ Hematologic History: Reports: B12 Deficiency, Other (See Below) Other Hematologic History: homozygous factor v leiden mutation Oncologic (Cancer) History: Reports: Prostate Other Oncologic History: had radiation therapy Dermatologic History: Reports: Decubitus Ulcer, Other (See Below) Other Dermatologic History: ulcer sore inside left buttocks - Infectious Disease History Infectious Disease History: Reports: Chicken Pox, Measles, Mumps, Shingles - Past Surgical History Head Surgeries/Procedures: Reports: None GI Surgical History: Reports: Appendectomy, Bariatric Procedure, Cholecystectomy Male Surgical History: Reports: Prostate Biopsy Musculoskeletal Surgical History: Reports: Hip Replacement Social & Family History - Family History Family Medical History: Noncontributory - Caffeine Use Caffeine Use: Reports: Coffee, Soda Other Caffeine Use: 2. cups per day Review of Systems - Review of Systems Review Of Systems: See Below Constitutional: Reports: No Symptoms Respiratory: Reports: No Symptoms Cardiovascular: Reports: No Symptoms Musculoskeletal: Reports: Foot Pain (Left medial proximal foot and ankle region pain.) Skin: Reports: No Symptoms Neurological: Reports: Numbness, Tingling, Difficulty Walking (Due to pain and paresthesias) Psychiatric: Reports: Anxiety ED EXAM, GENERAL - Physical Exam Exam: See Below Exam Limited By: Other (Intermittent stabbing pains and leg distract from interview and exam.) General Appearance: Mild Distress Respiratory/Chest: No Respiratory Distress Cardiovascular: Normal Peripheral Pulses, Regular Rate, Rhythm Extremities: Leg Pain (Both legs but left leg and ankle region are worse for several days now.), Other (She is pain on palpation on the medial condylar region of the left ankle and over the anterior aspect of same joint). No: Increased Warmth, Mottled Neurological: Sensory/Motor Deficit (Both lower extremities.) Course - Vital Signs Last Recorded V/S: Last Vital Signs Temp 36.5 C 10/16/19 22:55 Pulse 89 10/16/19 22:55 Resp 20 10/16/19 22:55 BP 113/81 10/16/19 22:55 Pulse Ox 98 10/16/19 22:55 - Orders/Labs/Meds Labs: Laboratory Tests 10/16/19 10/16/19 10/16/19 Range/Units 23:25 23:25 23:25 WBC 5.1 (4.5-11.0) K/uL RBC 5.26 (4.30-5.90) M/uL Hgb 16.6 H (12.0-15.0) g/dL Hct 47.5 (40.0-54.0) % MCV 90 (80-98) fL MCH 32 H (27-31) pg MCHC 35 (32-36) % Plt Count 205 (150-400) K/uL Neut % (Auto) 60 (36-66) % Lymph % (Auto) 27 (24-44) % Hart % (Auto) 9 H (2-6) % Eos % (Auto) 3 (2-4) % Baso % (Auto) 1 (0-1) % PT 18.6 H (9.5-12.0) sec INR 1.78 H (0.80-1.20) Sodium (140-148) mmol/L Potassium (3.6-5.2) mmol/L Chloride (100-108) mmol/L Carbon Dioxide (21-32) mmol/L Anion Gap (5.0-14.0) mmol/L BUN (7-18) mg/dL Creatinine (0.8-1.3) mg/dL Est Cr Clr Drug Dosing mL/min Estimated GFR (MDRD) (>60) Glucose (74-106) mg/dL Uric Acid 4.4 (3.5-7.2) mg/dL Calcium (8.5-10.1) mg/dL 10/16/19 Range/Units 23:25 WBC (4.5-11.0) K/uL RBC (4.30-5.90) M/uL Hgb (12.0-15.0) g/dL Hct (40.0-54.0) % MCV (80-98) fL MCH (27-31) pg MCHC (32-36) % Plt Count (150-400) K/uL Neut % (Auto) (36-66) % Lymph % (Auto) (24-44) % Hart % (Auto) (2-6) % Eos % (Auto) (2-4) % Baso % (Auto) (0-1) % PT (9.5-12.0) sec INR (0.80-1.20) Sodium 132 L (140-148) mmol/L Potassium 4.0 (3.6-5.2) mmol/L Chloride 97 L (100-108) mmol/L Carbon Dioxide 21 (21-32) mmol/L Anion Gap 14.5 H (5.0-14.0) mmol/L BUN 7 (7-18) mg/dL Creatinine 0.9 (0.8-1.3) mg/dL Est Cr Clr Drug Dosing 70.92 mL/min Estimated GFR (MDRD) > 60 (>60) Glucose 299 H (74-106) mg/dL Uric Acid (3.5-7.2) mg/dL Calcium 8.6 (8.5-10.1) mg/dL Meds: Medications Discontinued Medications Generic Name Dose Route Start Last Admin Trade Name Paulino PRN Reason Stop Dose Admin Acetaminophen 1,300 mg 10/17/19 00:18 10/17/19 00:42 Tylenol PO 10/17/19 00:19 Not Given NOW ONE - Radiology Interpretation Free Text/Narrative:: X-ray of left ankle ordered and reviewed by me shows no acute problems. - Re-Assessments/Exams Free Text/Narrative Re-Assessment/Exam: 10/17/19 01:57 Return to reviewed test results with the patient. His blood glucose is just under 300. His other tests are okay. We discussed that when the blood sugar is consistently high that the neuropathy is going to be worse. Patient also states that he does not remember to take his medications regularly, including gabapentin which had been prescribed for neuropathic pain. He does have tramadol at home but did not take any tonight. He asked about something stronger for pain but I declined as he has to drive himself home. I don't see anything requiring new medication. When he gets home, he should take a tramadol dose and find his bedtime gabapentin dose. I recommend that he do what he can to set himself up for success taking medications regularly. He is trying to find a way to get into a residential where his medication regimen can be managed more completely. Follow-up with primary care depending on how he feels over the next week with regular use of his medications. He was discharged in stable condition. Departure - Departure Time of Disposition: 00:55 Disposition: Home, Self-Care 01 Condition: Good Clinical Impression: Neuropathy associated with endocrine disorder Diabetes mellitus with hyperglycemia Qualifiers: Diabetes mellitus type: type 2 Diabetes mellitus senior care insulin use: with superintendent [employer] use Qualified Code(s): E11.65 - Type 2 diabetes mellitus with hyperglycemia - Discharge Information *PRESCRIPTION DRUG MONITORING PROGRAM REVIEWED*: Not Applicable Instructions: Neuropathic Pain Referrals: Davis Flores MD [Primary Care Provider] - Forms: ED Department Discharge Additional Instructions: When you get home, take a dose of tramadol. Also look for your gabapentin prescription and take your evening dose of that as well. Getting better control of your blood sugar and taking the gabapentin regularly will improve your diabetic nerve pain. Recheck with primary care if things aren't improving this week. Return to ER if feeling worse in anyway but the carlson will be taking her medications regularly. Sepsis Event Note - Focused Exam Vital Signs: Vital Signs Temp Pulse Resp BP Pulse Ox 10/16/19 22:55 36.5 C 89 20 113/81 98 10/16/19 22:52 36.5 C 89 20 113/81 98 Date Exam was Performed: 10/17/19 Time Exam was Performed: 01:52
[2019-10-17] MEDS ORDERED: Acetaminophen 325 MG Tab PO ONE (00:18)
--- NOTE | 2019-10-17 00:43 | CRLCR ---
Indication: Severe left ankle pain Technique: Three views of the left ankle Comparison: None Findings: There is no fracture or intrinsic bone lesion. The ankle joint is anatomically aligned. There is no appreciable knee joint effusion. Atherosclerotic calcifications are noted in the posterior tibial artery. Impression: No acute osseus abnormality. Dictated by Merrill Orozco MD @ Oct 17 2019 12:41AM Signed by Dr. Merrill Orozco @ Oct 17 2019 12:41AM
== END 2019-10-17 01:04 | disposition home or self-care (01) ==
LOC: JP.ED 22:32
DX: E11.40 Type 2 diabetes mellitus with diabetic neuropathy, unspecified (principal); E34.9 Endocrine disorder, unspecified; E78.00 Pure hypercholesterolemia, unspecified; F32.9 Major depressive disorder, single episode, unspecified; J44.9 Chronic obstructive pulmonary disease, unspecified; E66.9 Obesity, unspecified; E11.65 Type 2 diabetes mellitus with hyperglycemia; Z79.4 Long term (current) use of insulin; Z79.01 Long term (current) use of anticoagulants; Z79.899 Other long term (current) drug therapy
CPT/HCPCS: 36415; 73610-LT; 80048; 84550; 85025; 85610; 99283; 99283-25

== ENCOUNTER 2019-11-13 05:04 | Emergency (ER) | payer MEDICARE ==
--- NOTE | 2019-11-13 06:13 | EDM.PDOC ---
<Fito Cordon - Last Filed: 11/13/19 06:51> ED HPI GENERAL MEDICAL PROBLEM - General Chief Complaint: General Stated Complaint: FELL HIT HEAD LEFT HIP Time Seen by Provider: 11/13/19 06:00 Source of Information: Reports: Patient History Limitations: Reports: No Limitations - History of Present Illness INITIAL COMMENTS - FREE TEXT/NARRATIVE: 74-year-old male, lives independently, has been falling more often over the past several weeks. This morning he got up out of his chair walked about 10 feet then lost his balance and fell backwards landing on his left posterior hip and buttock and hitting the left side of his head. He is on Coumadin and was told that if he hits his head he should be evaluated. He has a tender area on his scalp but no headache. It is painful to ambulate and bear weight on the left hip and posterior buttock. Denies any shortness of breath, chest pain, palpitations, abdominal pain, recent illness or fever. He was supposed to get his INR checked yesterday but "forgot". He just wants to make sure nothing is broken and his head is okay so he can go home. He did drive himself it. Onset: Sudden Duration: Hour(s): (Within the last 2 hours) Location: Reports: Head, Pelvis (Left-sided buttock and posterior hip) Quality: Reports: Ache Improves with: Reports: Other Worsens with: Reports: Movement Associated Symptoms: Reports: No Other Symptoms Left Hip Pain Score (Numeric/FACES): 4 - Related Data Allergies Allergy/AdvReac Type Severity Reaction Status Date / Time No Known Allergies Allergy Verified 11/13/19 05:33 Home Meds: Home Meds Multivitamin with Minerals [Multiple Vitamin] 1 each PO DAILY 05/31/14 [History] Venlafaxine [Effexor] 150 mg PO DAILY 05/31/14 [History] Warfarin [Coumadin] 5 mg PO DAILY 05/31/14 [History] traMADol [Ultram] 1 tab PO Q12H PRN 05/31/14 [History] Ferrous Sulfate 324 mg PO DAILY 09/09/14 [History] Furosemide [Lasix] 20 mg PO DAILY 09/09/14 [History] metFORMIN [Glucophage] 1,000 mg PO BIDM 09/09/14 [History] Acetaminophen [Tylenol] 325 mg PO Q6H PRN 03/23/15 [History] Cyanocobalamin (Vitamin B-12) [B-12] 1,000 mcg PO DAILY 03/23/15 [History] atorvaSTATin [Lipitor] 10 mg PO BEDTIME 03/23/15 [History] Calcium Carbonate/Vitamin D3 [Calcium 250+D] 3 tab PO DAILY 11/17/17 [History] Omeprazole 40 mg PO DAILY 11/17/17 [History] SitaGLIPtin [Januvia] 100 mg PO DAILY 11/17/17 [History] Triamcinolone Acetonide [Kenalog 0.1% Crm] 1 applic TOP TID 11/17/17 [History] Gabapentin [Neurontin] 300 mg PO TID 08/19/18 [History] Insulin Glargine,Hum.Rec.Anlog [Toujeo Solostar] 45 unit SQ DAILY 08/19/18 [ History] Phytonadione [Vitamin K] 100 mcg PO DAILY 08/19/18 [History] Insulin Aspart [NovoLOG] 5 units SQ TIDMEALS 11/13/19 [History] Past Medical History HEENT History: Reports: Cataract, Hard of Hearing, Impaired Vision, Other (See Below) Other HEENT History: tear film insufficiency. hyperopia with astigmatism and presbyopia Cardiovascular History: Reports: Arrhythmia, Blood Clots/VTE/DVT, High Cholesterol, Other (See Below) Other Cardiovascular History: edema. orthostatic hypotension. postphlebitic edema Respiratory History: Reports: Bronchitis, Recurrent, COPD, Sleep Apnea Gastrointestinal History: Reports: Hemorrhoids, Other (See Below) Other Gastrointestinal History: RNY 2010. umbilical hernia Genitourinary History: Reports: Prostate Disorder Musculoskeletal History: Reports: Fracture, Osteoarthritis Other Musculoskeletal History: spondylosis cervical spine. degerative arthritis of cervical spine. chronic pain of right knee Psychiatric History: Reports: Aggressive/Hostile Behaviors, Depression, Other ( See Below) Other Psychiatric History: Registered sex offender Endocrine/Metabolic History: Reports: Diabetes, Type II, Obesity/BMI 30+ Hematologic History: Reports: B12 Deficiency, Other (See Below) Other Hematologic History: homozygous factor v leiden mutation Oncologic (Cancer) History: Reports: Prostate Other Oncologic History: had radiation therapy Dermatologic History: Reports: Decubitus Ulcer, Other (See Below) Other Dermatologic History: ulcer sore inside left buttocks comes and goes - Infectious Disease History Infectious Disease History: Reports: Chicken Pox, Measles, Mumps, Pertussis ( Whooping Cough), Shingles - Past Surgical History Head Surgeries/Procedures: Reports: None GI Surgical History: Reports: Appendectomy, Bariatric Procedure, Cholecystectomy , Hernia Repair/Other Male Surgical History: Reports: Prostate Biopsy Musculoskeletal Surgical History: Reports: Hip Replacement Social & Family History - Family History Family Medical History: Noncontributory - Tobacco Use Smoking Status *Q: Former Smoker Used Tobacco, but Quit: Yes Month/Year Tobacco Last Used: 1993 Second Hand Smoke Exposure: No - Caffeine Use Caffeine Use: Reports: Coffee Other Caffeine Use: 2. cups per day Caffeine Use Comment: 3 cups of coffee per day; occassional 7up or pepsi - Alcohol Use Number of Drinks Per Day: 1 Date of Last Drink: 11/12/19 - Recreational Drug Use Recreational Drug Use: No ED ROS GENERAL - Review of Systems Review Of Systems: See Below Constitutional: Denies: Fever, Chills HEENT: Denies: Vision Change Respiratory: Denies: Shortness of Breath Cardiovascular: Denies: Chest Pain, Palpitations GI/Abdominal: Denies: Abdominal Pain, Nausea, Vomiting Musculoskeletal: Denies: Neck Pain, Back Pain Skin: Reports: Bruising (Tends to bruise easily) Neurological: Reports: Weakness (Generally more weak over the past several months, more frequent falls). Denies: Dizziness, Headache Psychiatric: Reports: No Symptoms ED EXAM, GENERAL - Physical Exam Exam: See Below Exam Limited By: No Limitations General Appearance: Alert, No Apparent Distress Eye Exam: Bilateral Eye: EOMI Head: Other (Small focal area of tenderness on the left parietal and temporal scalp, no abrasion bruising or objective swelling) Neck: Supple, Non-Tender Respiratory/Chest: No Respiratory Distress Cardiovascular: Regular Rate, Rhythm GI/Abdominal: Soft, Non-Tender Extremities: Other (Right leg has complete range of motion without pain of the pelvis or hip, left leg with passive range of motion has some pain radiating to the posterior pelvis. There is no palpation tenderness to the proximal femur or hip itself. There is a large well-healed scar over the lateral hip indicating previous hip surgery) Neurological: Alert, Oriented, No Motor/Sensory Deficits Psychiatric: Normal Affect, Normal Mood Skin Exam: Warm, Dry Course - Vital Signs Last Recorded V/S: Last Vital Signs Temp 97.6 F 11/13/19 05:40 Pulse 82 11/13/19 05:40 Resp 20 11/13/19 05:40 BP 136/96 H 11/13/19 05:40 Pulse Ox 98 11/13/19 05:40 - Orders/Labs/Meds Labs: Laboratory Tests 11/13/19 Range/Units 06:18 PT 15.3 H (9.5-12.0) sec INR 1.45 H (0.80-1.20) - Re-Assessments/Exams Free Text/Narrative Re-Assessment/Exam: 11/13/19 06:13 CT the head and pelvis were obtained without contrast. His pro time and INR were checked as well. 11/13/19 06:[address] is negative for acute findings, patient admitted he was "feeling better ". Pelvis CT shows some stranding and soft tissue injury over the left iliac spine but no obvious fracture, official reading is still pending. INR is 1.45. Care was turned over to Dr. Farooq pending pelvis CT. Patient agreed that if the CT is negative and he can ambulate he would like to go home. Departure - Departure Disposition: Home, Self-Care 01 Clinical Impression: Contusion of left hip Qualifiers: Encounter type: initial encounter Qualified Code(s): S70.02XA - Contusion of left hip, initial encounter Head injury Qualifiers: Encounter type: initial encounter Qualified Code(s): S09.90XA - Unspecified injury of head, initial encounter - Discharge Information Referrals: PCP,None [Primary Care Provider] - Forms: ED Department Discharge Additional Instructions: Use Tylenol or Motrin as needed for main pain control, use hydrocodone for breakthrough pain, please followup with your primary care provider in 3-5 days if not better, please call return to the emergency department with worsening of symptoms. Sepsis Event Note - Evaluation Sepsis Screening Result: No Definite Risk - Focused Exam Vital Signs: Vital Signs Temp Pulse Resp BP Pulse Ox 11/13/19 05:40 97.6 F 82 20 136/96 H 98 11/13/19 05:38 97.6 F 82 20 136/96 H 98 Date Exam was Performed: 11/13/19 Time Exam was Performed: 06:51 <Colton Farooq - Last Filed: 02/16/20 08:20> Departure - Departure Time of Disposition: 08:19 Condition: Fair Sepsis Event Note - Focused Exam Date Exam was Performed: 11/13/19 Time Exam was Performed: 08:17 - Assessment/Plan Plan: Took over care from Dr. Garces at 7 AM Assessment Acuity = acute Site and laterality = contusion left hip with head injury Etiology = secondary to fall Manifestations = none Location of injury = Home Lab values = no fracture or acute process is appreciated in the hip CT, CT scan of the head is negative for any acute process Plan He was able to ambulate around the emergency department without difficulty, discharged home hydrocodone 5/325 1 tab p.o. 3 times daily PRN total #10 follow- up primary care 3 to 5 days if no improvement This note was dictated using [email or web address] voice recognition software please call with any questions on syntax or grammar.
--- NOTE | 2019-11-13 06:41 | CRLCT ---
INDICATION: Fall, hit head TECHNIQUE: CT Head without i.v. contrast. COMPARISON: None FINDINGS: CSF space: Unremarkable for age. Brain: No evidence of mass, acute infarction or hemorrhage is seen. No mass-effect or midline shift is seen. Mild diffuse cortical atrophy is noted. The brain parenchyma is otherwise normal in appearance with preservation of the robb-white matter junction. Calvarium: The visualized paranasal sinuses are well aerated. The mastoid air cells are clear. The visualized orbits are grossly unremarkable. The calvarium is unremarkable in appearance with no fractures identified. IMPRESSION: 1. No evidence of acute infarction, intracranial hemorrhage, or mass-effect seen. Please note that all CT scans at this facility use dose modulation, iterative reconstruction, and/or weight-based dosing when appropriate to reduce radiation dose to as low as reasonably achievable. Dictated by: Jesse Silver MD @ 11/13/2019 06:40:28 (Electronically Signed)
--- NOTE | 2019-11-13 08:15 | CRLCT ---
INDICATION: Trauma. Fall. Groin pain. Buttock pain. TECHNIQUE: Axial noncontrast CT of the pelvis. Coronal and sagittal reconstructed images obtained. Bone windows utilized. FINDINGS: No acute fracture or dislocation. Degenerative disc disease of the visualized lumbar spine particularly at L3 and L4. Degenerative facet arthropathy in the included lower lumbar spine. Postsurgical change from a left total hip arthroplasty. Degenerative narrowing of the right hip. The included sacrum and coccyx are unremarkable. Postsurgical changes are identified within the lower right abdominal wall. Vascular calcification within the visualized aorta and iliac arteries. Incidental note is made of a benign bone island in the right sacrum. IMPRESSION: No acute fracture or malalignment of the pelvis or either hip. The included sacrum and coccyx are within normal limits. Degenerative disc disease of the lower lumbar spine with multilevel degenerative facet arthropathy. Please note that all CT scans at this facility use dose modulation, iterative reconstruction, and/or weight-based dosing when appropriate to reduce radiation dose to as low as reasonably achievable. Dictated by Adan Mandujano MD @ Nov 13 2019 8:14AM Signed by Dr. Adan Mandujano @ Nov 13 2019 8:14AM
[2019-11-13 08:37] VITALS: BP 128/86; PULSE 78
== END 2019-11-13 08:37 | disposition home or self-care (01) ==
LOC: JP.ED 05:04
DX: S09.90XA Unspecified injury of head, initial encounter (principal); S70.02XA Contusion of left hip, initial encounter; E11.9 Type 2 diabetes mellitus without complications; E66.9 Obesity, unspecified; E78.00 Pure hypercholesterolemia, unspecified; J44.9 Chronic obstructive pulmonary disease, unspecified; F32.9 Major depressive disorder, single episode, unspecified; Z79.4 Long term (current) use of insulin; Z68.33 Body mass index [BMI] 33.0-33.9, adult; Z79.899 Other long term (current) drug therapy; Z87.891 Personal history of nicotine dependence
CPT/HCPCS: 36415; 70450; 72192; 85610; 99283; 99284-25

== ENCOUNTER 2019-11-21 15:48 | Inpatient (IN) | payer MEDICARE ==
--- NOTE | 2019-11-21 15:53 | EDM.PDOC ---
ED HPI GENERAL MEDICAL PROBLEM - General Chief Complaint: Lower Extremity Injury/Pain Stated Complaint: ACCIDENT VIA [facility] Time Seen by Provider: 11/21/19 15:50 Source of Information: Reports: Patient, EMS, Old Records History Limitations: Reports: No Limitations - History of Present Illness INITIAL COMMENTS - FREE TEXT/NARRATIVE: 74 yo male fell on the ice injuring his L ankle. Here now via EMS who gave Toradol 15 mg IV and Fentanyl 50 mcg IV. No other injuries in the fall. Onset: Today Onset Date: 11/21/19 Onset Time: 15:00 Duration: Minutes:, Constant Location: Reports: Lower Extremity, Left Quality: Reports: Ache Severity: Moderate Improves with: Reports: Medication Worsens with: Reports: Movement Context: Reports: Trauma Associated Symptoms: Reports: No Other Symptoms Treatments CPO: Reports: Other (see below) (See HPI) Left Ankle Pain Score (Numeric/FACES): 6 - Related Data Allergies Allergy/AdvReac Type Severity Reaction Status Date / Time No Known Allergies Allergy Verified 11/13/19 05:33 Home Meds: Home Meds Multivitamin with Minerals [Multiple Vitamin] 1 each PO DAILY 05/31/14 [History] Venlafaxine [Effexor] 150 mg PO DAILY 05/31/14 [History] Warfarin [Coumadin] 5 mg PO DAILY 05/31/14 [History] traMADol [Ultram] 1 tab PO Q12H PRN 05/31/14 [History] Ferrous Sulfate 324 mg PO DAILY 09/09/14 [History] Furosemide [Lasix] 20 mg PO DAILY 09/09/14 [History] metFORMIN [Glucophage] 1,000 mg PO BIDM 09/09/14 [History] Acetaminophen [Tylenol] 325 mg PO Q6H PRN 03/23/15 [History] Cyanocobalamin (Vitamin B-12) [B-12] 1,000 mcg PO DAILY 03/23/15 [History] atorvaSTATin [Lipitor] 10 mg PO BEDTIME 03/23/15 [History] Calcium Carbonate/Vitamin D3 [Calcium 250+D] 3 tab PO DAILY 11/17/17 [History] Omeprazole 40 mg PO DAILY 11/17/17 [History] SitaGLIPtin [Januvia] 100 mg PO DAILY 11/17/17 [History] Triamcinolone Acetonide [Kenalog 0.1% Crm] 1 applic TOP TID 11/17/17 [History] Gabapentin [Neurontin] 300 mg PO TID 08/19/18 [History] Insulin Glargine,Hum.Rec.Anlog [Toujeo Solostar] 45 unit SQ DAILY 08/19/18 [ History] Phytonadione [Vitamin K] 100 mcg PO DAILY 08/19/18 [History] Insulin Aspart [NovoLOG] 5 units SQ TIDMEALS 11/13/19 [History] Past Medical History HEENT History: Reports: Cataract, Hard of Hearing, Impaired Vision, Other (See Below) Other HEENT History: tear film insufficiency. hyperopia with astigmatism and presbyopia Cardiovascular History: Reports: Arrhythmia, Blood Clots/VTE/DVT, High Cholesterol, Other (See Below) Other Cardiovascular History: edema. orthostatic hypotension. postphlebitic edema Respiratory History: Reports: Bronchitis, Recurrent, COPD, Sleep Apnea Gastrointestinal History: Reports: Hemorrhoids, Other (See Below) Other Gastrointestinal History: RNY 2010. umbilical hernia Genitourinary History: Reports: Prostate Disorder Musculoskeletal History: Reports: Fracture, Osteoarthritis Other Musculoskeletal History: spondylosis cervical spine. degerative arthritis of cervical spine. chronic pain of right knee Psychiatric History: Reports: Aggressive/Hostile Behaviors, Depression, Other ( See Below) Other Psychiatric History: Registered sex offender Endocrine/Metabolic History: Reports: Diabetes, Type II, Obesity/BMI 30+ Hematologic History: Reports: B12 Deficiency, Other (See Below) Other Hematologic History: homozygous factor v leiden mutation Oncologic (Cancer) History: Reports: Prostate Other Oncologic History: had radiation therapy Dermatologic History: Reports: Decubitus Ulcer, Other (See Below) Other Dermatologic History: ulcer sore inside left buttocks comes and goes - Infectious Disease History Infectious Disease History: Reports: Chicken Pox, Measles, Mumps, Pertussis ( Whooping Cough), Shingles - Past Surgical History Head Surgeries/Procedures: Reports: None GI Surgical History: Reports: Appendectomy, Bariatric Procedure, Cholecystectomy , Hernia Repair/Other Male Surgical History: Reports: Prostate Biopsy Musculoskeletal Surgical History: Reports: Hip Replacement Social & Family History - Family History Family Medical History: Noncontributory - Caffeine Use Caffeine Use: Reports: Coffee Other Caffeine Use: 2. cups per day Caffeine Use Comment: 3 cups of coffee per day; occassional 7up or pepsi Review of Systems - Review of Systems Review Of Systems: See Below Constitutional: Reports: No Symptoms Musculoskeletal: Reports: Joint Pain (L ankle), Joint Swelling (L ankle) Skin: Reports: No Symptoms Neurological: Reports: No Symptoms ED EXAM, GENERAL - Physical Exam Exam: See Below Exam Limited By: No Limitations General Appearance: Alert, WD/WN, No Apparent Distress Extremities: Pedal Edema (L ankle), Joint Swelling (Left lateral ankle. ), Limited Range of Motion (due to pain of that L ankle. ). No: Normal Inspection , Normal Range of Motion, Non-Tender, No Pedal Edema, Increased Warmth, Redness Neurological: Alert, Oriented, CN II-XII Intact, Normal Cognition, No Motor/ Sensory Deficits Psychiatric: Normal Affect, Normal Mood Skin Exam: Warm, Dry, Intact, Normal Color, No Rash Course - Vital Signs Text/Narrative:: Dr. Zelaya called @ 1630h Dr. Frederick aware @ 1700h Last Recorded V/S: Last Vital Signs Temp 35.1 C L 11/21/19 16:06 Pulse 61 11/21/19 16:06 Resp 20 11/21/19 16:06 BP 139/81 11/21/19 16:06 Pulse Ox 97 11/21/19 16:06 - Orders/Labs/Meds Orders: Active Orders 24 hr Category Date Time Status Ankle Min 3V Lt [CR] Stat Exams 11/21/19 15:49 Taken - Radiology Interpretation Free Text/Narrative:: L ankle X-ray- Departure - Departure Time of Disposition: 17:15 Disposition: Refer to Observation Condition: Fair Clinical Impression: Unstable left ankle Fracture of fibula, distal Qualifiers: Encounter type: initial encounter Fracture type: closed Fracture morphology: other fracture Laterality: left Qualified Code(s): S82.832A - Other fracture of upper and lower end of left fibula, initial encounter for closed fracture - Discharge Information *PRESCRIPTION DRUG MONITORING PROGRAM REVIEWED*: Not Applicable *COPY OF PRESCRIPTION DRUG MONITORING REPORT IN PATIENT RADHA: Not Applicable Referrals: PCP,None [Primary Care Provider] - Forms: ED Department Discharge Sepsis Event Note - Focused Exam Vital Signs: Vital Signs Temp Pulse Resp BP Pulse Ox 11/21/19 16:06 35.1 C L 61 20 139/81 97 11/21/19 16:05 35.1 C L 61 20 139/81 97 Date Exam was Performed: 11/21/19 Time Exam was Performed: 16:58 - My Orders Last 24 Hours: My Active Orders 11/21/19 15:49 Ankle Min 3V Lt [CR] Stat - Assessment/Plan Last 24 Hours: My Active Orders 11/21/19 15:49 Ankle Min 3V Lt [CR] Stat
--- NOTE | 2019-11-21 17:18 | PCM.CONS ---
H&P History of Present Illness - General Date of Service: 11/21/19 Source of Information: Patient, Old Records History Limitations: Reports: No Limitations - History of Present Illness Initial Comments - Free Text/Narative: 74 year old male slipped and fell on ice prior to arrival. Reports feeling a snap when his left foot twisted behind him. No other injuries. Currently unable to bear weight on left ankle. X-rays done in ED show a displaced fibula fracture and significant lateral shift consistent with complete tear of the deltoid ligament. Onset of Symptoms: Reports: Today, Sudden Duration of Symptoms: Reports: Constant Location: Reports: Lower Extremity, Left Quality: Reports: Sharp, Stabbing Severity: Severe Improves with: Reports: Immobilization Worsens with: Reports: Movement Context: Reports: Trauma Associated Symptoms: Reports: No Other Symptoms Left Ankle Pain Score (Numeric/FACES): 6 - Related Data Allergies/Adverse Reactions: Allergies Allergy/AdvReac Type Severity Reaction Status Date / Time No Known Allergies Allergy Verified 11/13/19 05:33 Home Medications: Home Meds Multivitamin with Minerals [Multiple Vitamin] 1 each PO DAILY 05/31/14 [History] Venlafaxine [Effexor] 150 mg PO DAILY 05/31/14 [History] Warfarin [Coumadin] 5 mg PO DAILY 05/31/14 [History] traMADol [Ultram] 1 tab PO Q12H PRN 05/31/14 [History] Ferrous Sulfate 324 mg PO DAILY 09/09/14 [History] Furosemide [Lasix] 20 mg PO DAILY 09/09/14 [History] metFORMIN [Glucophage] 1,000 mg PO BIDM 09/09/14 [History] Acetaminophen [Tylenol] 325 mg PO Q6H PRN 03/23/15 [History] Cyanocobalamin (Vitamin B-12) [B-12] 1,000 mcg PO DAILY 03/23/15 [History] atorvaSTATin [Lipitor] 10 mg PO BEDTIME 03/23/15 [History] Calcium Carbonate/Vitamin D3 [Calcium 250+D] 3 tab PO DAILY 11/17/17 [History] Omeprazole 40 mg PO DAILY 11/17/17 [History] SitaGLIPtin [Januvia] 100 mg PO DAILY 11/17/17 [History] Triamcinolone Acetonide [Kenalog 0.1% Crm] 1 applic TOP TID 11/17/17 [History] Gabapentin [Neurontin] 300 mg PO TID 08/19/18 [History] Insulin Glargine,Hum.Rec.Anlog [Toujeo Solostar] 45 unit SQ DAILY 08/19/18 [ History] Phytonadione [Vitamin K] 100 mcg PO DAILY 08/19/18 [History] Insulin Aspart [NovoLOG] 5 units SQ TIDMEALS 11/13/19 [History] Past Medical History HEENT History: Reports: Cataract, Hard of Hearing, Impaired Vision, Other (See Below) Other HEENT History: tear film insufficiency. hyperopia with astigmatism and presbyopia Cardiovascular History: Reports: Arrhythmia, Blood Clots/VTE/DVT, High Cholesterol, Other (See Below) Other Cardiovascular History: edema. orthostatic hypotension. postphlebitic edema Respiratory History: Reports: Bronchitis, Recurrent, COPD, Sleep Apnea Gastrointestinal History: Reports: Hemorrhoids, Other (See Below) Other Gastrointestinal History: RNY 2010. umbilical hernia Genitourinary History: Reports: Prostate Disorder Musculoskeletal History: Reports: Fracture, Osteoarthritis Other Musculoskeletal History: spondylosis cervical spine. degerative arthritis of cervical spine. chronic pain of right knee Psychiatric History: Reports: Aggressive/Hostile Behaviors, Depression, Other ( See Below) Other Psychiatric History: Registered sex offender Endocrine/Metabolic History: Reports: Diabetes, Type II, Obesity/BMI 30+ Hematologic History: Reports: B12 Deficiency, Other (See Below) Other Hematologic History: homozygous factor v leiden mutation Oncologic (Cancer) History: Reports: Prostate Other Oncologic History: had radiation therapy Dermatologic History: Reports: Decubitus Ulcer, Other (See Below) Other Dermatologic History: ulcer sore inside left buttocks comes and goes - Infectious Disease History Infectious Disease History: Reports: Chicken Pox, Measles, Mumps, Pertussis ( Whooping Cough), Shingles - Past Surgical History Head Surgeries/Procedures: Reports: None GI Surgical History: Reports: Appendectomy, Bariatric Procedure, Cholecystectomy , Hernia Repair/Other Male Surgical History: Reports: Prostate Biopsy Musculoskeletal Surgical History: Reports: Hip Replacement Social & Family History - Family History Family Medical History: Noncontributory - Caffeine Use Caffeine Use: Reports: Coffee Other Caffeine Use: 2. cups per day Caffeine Use Comment: 3 cups of coffee per day; occassional 7up or pepsi - Recreational Drug Use Recreational Drug Use: No H&P Review of Systems - Review of Systems: Review Of Systems: See Below General: Reports: No Symptoms HEENT: Reports: No Symptoms Pulmonary: Reports: No Symptoms Cardiovascular: Reports: No Symptoms Neurological: Reports: Other (neuropathy bilat feet) Hematologic/Lymphatic: Reports: Easy Bruising Exam - Exam Exam: See Below - Vital Signs Vital Signs: Last Vital Signs Temp 35.1 C L 11/21/19 16:06 Pulse 61 11/21/19 16:06 Resp 20 11/21/19 16:06 BP 139/81 11/21/19 16:06 Pulse Ox 97 11/21/19 16:06 Weight: 104.326 kg - Exam General: Alert, Oriented Extremities: Joint Swelling, Limited Range of Motion, Other (bruising left foot and ankle) Sepsis Event Note - Evaluation Sepsis Screening Result: No Definite Risk - Focused Exam Vital Signs: Vital Signs Temp Pulse Resp BP Pulse Ox 11/21/19 16:06 35.1 C L 61 20 139/81 97 11/21/19 16:05 35.1 C L 61 20 139/81 97 Date Exam was Performed: 11/21/19 Time Exam was Performed: 17:13 Consult PN Assessment/Plan Procedures: Procedures ASSAY OF BLOOD/URIC ACID (10/16/19) ASSAY OF FERRITIN (03/26/15) ASSAY OF LACTIC ACID (12/26/14) ASSAY OF LIPASE (12/26/14) ASSAY OF MAGNESIUM (06/03/19) ASSAY OF NATRIURETIC PEPTIDE (11/17/17) ASSAY OF PHOSPHORUS (03/26/15) ASSAY OF TROPONIN QUANT (06/03/19) CHEST X-RAY 2VW FRONTAL&LATL (06/26/16) COMPLETE CBC AUTOMATED (06/03/19) COMPLETE CBC W/AUTO DIFF WBC (10/16/19) COMPREHEN METABOLIC PANEL (12/16/18) CT ABD & PELV W/CONTRAST (12/26/14) CT HEAD/BRAIN W/O DYE (11/13/19) CT PELVIS W/O DYE (11/13/19) CULTURE SCREEN ONLY (03/26/15) EGD BIOPSY SINGLE/MULTIPLE (03/26/15) EGD DILATE STRICTURE (03/26/15) ELECTROCARDIOGRAM TRACING (06/16/18) EMERGENCY DEPT VISIT (11/13/19) EMERGENCY DEPT VISIT (10/16/19) EMERGENCY DEPT VISIT (06/03/19) EMERGENCY DEPT VISIT (12/16/18) EMERGENCY DEPT VISIT (06/16/18) EMERGENCY DEPT VISIT (11/17/17) EMERGENCY DEPT VISIT (12/26/14) EMERGENCY DEPT VISIT (11/17/14) EMERGENCY DEPT VISIT (11/17/14) EMERGENCY DEPT VISIT (09/09/14) EMERGENCY DEPT VISIT (05/31/14) EXTREMITY STUDY (03/16/17) GLUCOSE BLOOD TEST (06/03/19) HOT OR COLD PACKS THERAPY (06/10/18) HYDRATE IV INFUSION ADD-ON (12/26/14) MANUAL THERAPY 1/> REGIONS (01/22/17) METABOLIC PANEL TOTAL CA (10/16/19) ORTHOTIC MGMT&TRAING 1ST ENC (08/12/17) OT EVAL LOW COMPLEX 30 MIN (08/12/17) PROTHROMBIN TIME (11/13/19) PT EVAL LOW COMPLEX 20 MIN (05/18/18) ROUTINE VENIPUNCTURE (11/13/19) THER/PROPH/DIAG INJ IV PUSH (06/16/18) THER/PROPH/DIAG IV INF ADDON (06/03/19) THER/PROPH/DIAG IV INF INIT (06/03/19) THERAPEUTIC EXERCISES (05/18/18) TX/PRO/DX INJ NEW DRUG ADDON (12/26/14) ULTRASOUND THERAPY (06/10/18) URINALYSIS AUTO W/SCOPE (12/16/18) X-RAY EXAM CHEST 1 VIEW (11/17/17) X-RAY EXAM CHEST 2 VIEWS (06/16/18) X-RAY EXAM HIP UNI 2-3 VIEWS (12/16/18) X-RAY EXAM OF ANKLE (10/16/19) X-RAY EXAM OF HAND (11/15/14) X-RAY EXAM OF SHOULDER (12/14/16) (1) Fracture of fibula, distal SNOMED Code(s): 287777772 Code(s): S82.839A - OTH FRACTURE OF UPPER AND LOWER END OF UNSP FIBULA, INIT Current Visit: Yes Qualifiers: Encounter type: initial encounter Fracture type: closed Fracture morphology: other fracture Laterality: left Qualified Code(s): S82.832A - Other fracture of upper and lower end of left fibula, initial encounter for closed fracture (2) Unstable left ankle SNOMED Code(s): 7797737530004830 Code(s): M25.372 - OTHER INSTABILITY, LEFT ANKLE Current Visit: Yes Problem List Initiated/Reviewed/Updated: Yes Plan: Recommend ORIF of fibula and repair of deltoid ligament. Patient is on Coumadin Tx for history of DVT, also has Factor V Leyden, level done earlier today had him at 3.1. Would need to correct down to around 1.5 for surgery. Splint applied to left ankle. Will ask Dr. Frederick to see and assist with anticoagulation, DM, HTN etc. Possible surgery tomorrow late afternoon.
--- NOTE | 2019-11-21 18:14 | PCM.HP.2 ---
H&P History of Present Illness - General Date of Service: 11/21/19 Admit Problem/Dx: Admission Diagnosis/Problem Admission Diagnosis/Problem Ankle fracture Source of Information: Patient, Provider History Limitations: Reports: No Limitations - History of Present Illness Initial Comments - Free Text/Narative: CC: I twisted my ankle HPI: Moose presents to the emergency room by ambulance with left ankle pain and inability to bear weight. He reports that he was loading garbage in the back of his van when he had a sudden twist and then snap in his left ankle. He fell to the ground. He had immediate sharp severe pain in the left ankle with radiation into the lower part of his leg. He had to crawl to the step because he was unable to bear any weight. He was able to summon help at that time. He was not able to take any pain medications at home but did receive fentanyl and Toradol in the ambulance. These did not help his pain very much. His ankle does feel better when he lays still. X-ray images in the emergency room show a complex fracture of the left ankle and concern for complete tear of the deltoid ligament of the left ankle. He reports that in general he has felt well recently. No complaints of shortness of breath or chest pain. He did have a couple episodes of syncope about 2 weeks ago but none since that time. No fevers or chills. Diabetes has been suboptimally controlled but he has not been compliant with medications. He has had multiple previous surgeries and has not had previous difficulties with anesthesia. Work-up in the emergency room revealed a complex and dislocated fracture of the left distal fibula. INR at the Coumadin clinic today was 3.1. He will be admitted for reversal of his Coumadin and then surgical intervention tomorrow. Left Ankle Pain Score (Numeric/FACES): 6 - Related Data Allergies/Adverse Reactions: Allergies Allergy/AdvReac Type Severity Reaction Status Date / Time No Known Allergies Allergy Verified 11/13/19 05:33 Home Medications: Home Meds Multivitamin with Minerals [Multiple Vitamin] 1 each PO DAILY 05/31/14 [History] Venlafaxine [Effexor] 150 mg PO DAILY 05/31/14 [History] Warfarin [Coumadin] 5 mg PO DAILY 05/31/14 [History] traMADol [Ultram] 1 tab PO Q12H PRN 05/31/14 [History] Ferrous Sulfate 324 mg PO DAILY 09/09/14 [History] Furosemide [Lasix] 20 mg PO DAILY 09/09/14 [History] metFORMIN [Glucophage] 1,000 mg PO BIDM 09/09/14 [History] Acetaminophen [Tylenol] 325 mg PO Q6H PRN 03/23/15 [History] Cyanocobalamin (Vitamin B-12) [B-12] 1,000 mcg PO DAILY 03/23/15 [History] atorvaSTATin [Lipitor] 10 mg PO BEDTIME 03/23/15 [History] Calcium Carbonate/Vitamin D3 [Calcium 250+D] 3 tab PO DAILY 11/17/17 [History] Omeprazole 40 mg PO DAILY 11/17/17 [History] SitaGLIPtin [Januvia] 100 mg PO DAILY 11/17/17 [History] Triamcinolone Acetonide [Kenalog 0.1% Crm] 1 applic TOP TID 11/17/17 [History] Gabapentin [Neurontin] 300 mg PO TID 08/19/18 [History] Insulin Glargine,Hum.Rec.Anlog [Toujeo Solostar] 45 unit SQ DAILY 08/19/18 [ History] Phytonadione [Vitamin K] 100 mcg PO DAILY 08/19/18 [History] Insulin Aspart [NovoLOG] 5 units SQ TIDMEALS 11/13/19 [History] Past Medical History HEENT History: Reports: Cataract, Hard of Hearing, Impaired Vision, Other (See Below) Other HEENT History: tear film insufficiency. hyperopia with astigmatism and presbyopia Cardiovascular History: Reports: Arrhythmia, Blood Clots/VTE/DVT, High Cholesterol, Other (See Below) Other Cardiovascular History: edema. orthostatic hypotension. postphlebitic edema Respiratory History: Reports: Bronchitis, Recurrent, COPD, Sleep Apnea Gastrointestinal History: Reports: Hemorrhoids, Other (See Below) Other Gastrointestinal History: RNY 2010. umbilical hernia Genitourinary History: Reports: Prostate Disorder Musculoskeletal History: Reports: Fracture, Osteoarthritis Other Musculoskeletal History: spondylosis cervical spine. degerative arthritis of cervical spine. chronic pain of right knee Psychiatric History: Reports: Aggressive/Hostile Behaviors, Depression, Other ( See Below) Other Psychiatric History: Registered sex offender Endocrine/Metabolic History: Reports: Diabetes, Type II, Obesity/BMI 30+ Hematologic History: Reports: B12 Deficiency, Other (See Below) Other Hematologic History: homozygous factor v leiden mutation Oncologic (Cancer) History: Reports: Prostate Other Oncologic History: had radiation therapy Dermatologic History: Reports: Decubitus Ulcer, Other (See Below) Other Dermatologic History: ulcer sore inside left buttocks comes and goes - Infectious Disease History Infectious Disease History: Reports: Chicken Pox, Measles, Mumps, Pertussis ( Whooping Cough), Shingles - Past Surgical History Head Surgeries/Procedures: Reports: None GI Surgical History: Reports: Appendectomy, Bariatric Procedure, Cholecystectomy , Hernia Repair/Other Male Surgical History: Reports: Prostate Biopsy Musculoskeletal Surgical History: Reports: Hip Replacement Social & Family History - Family History Family Medical History: Noncontributory - Caffeine Use Caffeine Use: Reports: Coffee Other Caffeine Use: 2. cups per day Caffeine Use Comment: 3 cups of coffee per day; occassional 7up or pepsi - Alcohol Use Alcohol Use History: No - Recreational Drug Use Recreational Drug Use: No H&P Review of Systems - Review of Systems: Review Of Systems: See Below Free Text/Narrative: A complete 12 point review of systems was obtained. Pertinent positives and negatives are noted in the history of present illness. All other systems were reviewed and were negative except as noted. Exam - Exam Exam: See Below - Vital Signs Vital Signs: Last Vital Signs Temp 35.1 C L 11/21/19 16:06 Pulse 61 11/21/19 16:06 Resp 20 11/21/19 16:06 BP 139/81 11/21/19 16:06 Pulse Ox 97 11/21/19 16:06 Weight: 104.326 kg - Exam Quality Assessment: No: Supplemental Oxygen General: Alert, Oriented, Cooperative. No: Mild Distress HEENT: Conjunctiva Clear, Mucosa Moist & [place]. No: Scleral Icterus Neck: Supple, Trachea Midline. No: Lymphadenopathy Lungs: Clear to Auscultation, Normal Respiratory Effort Cardiovascular: Regular Rate, Regular Rhythm. No: Systolic Murmur GI/Abdominal Exam: Normal Bowel Sounds, Soft, Non-Tender, No Distention Extremities: Pedal Edema (left foot), Other (left leg wrapped in randall and splint from below the knee to the toes ). No: Increased Warmth Peripheral Pulses: 1+: Dorsalis Pedis (R) Skin: Warm, Dry Neuro Extensive - Mental Status: Alert, Oriented x3, Nl Response to Commands Neuro Extensive - Motor, Sensory, Reflexes: No: Dysarthria, Abnormal Motor, Tremor Psychiatric: Alert, Normal Affect - Patient Data Result Diagrams: 11/21/19 18:11 Imaging Impressions Last 24 hrs: XR left ankle-images personally reviewed-complex fracture of the left distal fibula with displacement. Vascular calcifications are present. Sepsis Event Note - Evaluation Sepsis Screening Result: No Definite Risk - Focused Exam Vital Signs: Vital Signs Temp Pulse Resp BP Pulse Ox 11/21/19 16:06 35.1 C L 61 20 139/81 97 11/21/19 16:05 35.1 C L 61 20 139/81 97 Date Exam was Performed: 11/21/19 Time Exam was Performed: 18:25 *Q Meaningful Use (ADM) - VTE *Q VTE Pharmacological Contraindications *Q: Patient Scheduled Surgery - VTE Risk Assess *Q Each Risk Factor Represents 1 Point: Minor Surgery Planned, Swollen Legs, Current, Obesity ( BMI > 25 kg/m2) Total Score 1 Point Risk Factors: 3 Each Risk Factor Represents 2 Points: Malignancy (present or previous) Total Score 2 Point Risk Factors: 2 Each Risk Factor Represents 3 Points: Age 75 Years or Greater, History of DVT/PE Total Score 3 Point Risk Factors: 6 Each Risk Factor Represents 5 Points: Hip, Pelvis or Leg Fracture, Less than 1 month Total Score 5 Point Risk Factors: 5 Venous Thromboembolism Risk Factor Score *Q: 16 - Problem List (1) Fracture of fibula, distal SNOMED Code(s): 860916378 ICD Code: S82.839A - OTH FRACTURE OF UPPER AND LOWER END OF UNSP FIBULA, INIT Status: Acute Current Visit: Yes Qualifiers: Encounter type: initial encounter Fracture type: closed Fracture morphology: other fracture Laterality: left Qualified Code(s): S82.832A - Other fracture of upper and lower end of left fibula, initial encounter for closed fracture (2) IDDM (insulin dependent diabetes mellitus) SNOMED Code(s): 65246167 ICD Code: E11.9 - TYPE 2 DIABETES MELLITUS WITHOUT COMPLICATIONS; Z79.4 - RESIDENTIAL (CURRENT) USE OF INSULIN Status: Chronic Current Visit: Yes (3) Prostate cancer SNOMED Code(s): 804938046 ICD Code: C61 - MALIGNANT NEOPLASM OF PROSTATE Status: Chronic Current Visit: Yes (4) Factor V Leiden mutation SNOMED Code(s): 546462598 ICD Code: D68.51 - ACTIVATED PROTEIN C RESISTANCE Status: Chronic Current Visit: Yes (5) History of DVT (deep vein thrombosis) SNOMED Code(s): 152559416 ICD Code: Z86.718 - PERSONAL HISTORY OF OTHER VENOUS THROMBOSIS AND EMBOLISM Status: Chronic Current Visit: Yes Problem List Initiated/Reviewed/Updated: Yes Orders Last 24hrs: Active Orders 24 hr Category Date Time Status Patient Status Manage Transfer [TRANSFER] Routine ADT 11/21/19 18:00 Ordered Ankle Min 3V Lt [CR] Stat Exams 11/21/19 15:49 Taken BASIC METABOLIC PANEL,BMP [CHEM] Urgent Lab 11/21/19 17:58 Ordered CBC WITH AUTO DIFF [HEME] Urgent Lab 11/21/19 17:58 Ordered Resuscitation Status Routine Resus Stat 11/21/19 18:03 Ordered Assessment/Plan Comment:: ASSESSMENT AND PLAN - Displaced left distal fibula fracture-orthopedics is concerned about tear of the deltoid ligament and unstable ankle on the left. Patient has an elevated INR and is not able to undergo surgery at this time. He is not safe for outpatient management because of his inability to bear weight and the complex nature of the fracture. I do believe he is in optimal achievable medical condition at this time and there are no obvious contraindications for surgery tomorrow assuming his INR is normalized. -Pain control -No weightbearing on the left leg -Surgical intervention per Dr Irvin Zelaya tomorrow -INR reversal as discussed below Insulin-dependent diabetes mellitus with complications-suboptimally controlled, probably mostly due to patient noncompliance. Does not take medications as scheduled. He has vascular disease as well as neuropathy. -A1c in the morning -25 units of Lantus tomorrow morning -5 units of short acting insulin with meals -Medium dose sliding scale -Continue metformin History of DVT/PE-factor V Leiden deficiency. He is chronically anticoagulated. INR was 3.1 today. -2 mg of IV vitamin K this evening -INR in the morning History of prostate cancer- Maintenance issues - - DVT prophylaxis -restart warfarin as soon as possible after surgery - GI prophylaxis -PPI - Nutrition -consistent carbohydrates tonight, nothing by mouth after midnight - Lopez catheter -not indicated CODE STATUS -full code Admission justification -this patient will be admitted for inpatient services and is medically appropriate meeting medical necessity for inpatient admission as outlined in my documentation. I reasonably expect the patient will require inpatient services that span a period time over 2 midnights. I reasonably expect this patient to be discharged or transferred within 96 hours after admission to the [facility]. Disposition -I would anticipate discharge home with home care ([facility]) versus subacute rehab after the hospital stay Primary care physician -Dr. Sandra Frederick M.D. - Mortality Measure Prognosis:: Good
[2019-11-21] MEDS ORDERED: Acetaminophen 325 MG Tab PO PRN (18:54)
[2019-11-21] MEDS ORDERED: Albuterol 0.083% 2.5 MG/3 ML Neb Soln NEB PRN (18:54)
[2019-11-21] MEDS ORDERED: Ondansetron 4 MG/2 ML SDV IV PRN (18:54)
[2019-11-21] MEDS ORDERED: Ondansetron 4 MG Tab.DIS PO PRN (18:54)
[2019-11-21] MEDS ORDERED: oxyCODONE 5 MG Tab PO PRN (18:54)
[2019-11-21] MEDS ORDERED: HYDROmorphone 1 MG/ML Syringe IVPUSH PRN (18:54)
[2019-11-21] MEDS ORDERED: LORazepam 2 MG/ML SDV IVPUSH PRN (18:54)
[2019-11-21] MEDS ORDERED: Pneumococcal Polyvalent-23 Vaccine 0.5 ML SDV SUBCUT ONE (19:10)
[2019-11-21] MEDS: atorvaSTATin 10 MG Tab PO SCH (21:06)
[2019-11-21] MEDS: Insulin Lispro 100 Unit/ML 3 ML KwikPen SUBCUT SCH (21:07)
[2019-11-21] MEDS: Melatonin 3 MG Tab PO SCH (21:07)
[2019-11-21] MEDS: Gabapentin 300 MG Cap PO SCH (21:07)
[2019-11-22] MEDS: Lactated Ringers 1,000 ML IV SCH ×2 (07:36→20:02)
--- NOTE | 2019-11-22 08:38 | CR ---
Ankle Min 3V Lt CLINICAL HISTORY: Injury FINDINGS: There is a displaced comminuted fracture the distal fibula. There is lateral subluxation of the talus. Impression: Displaced fracture distal fibula with lateral dislocation of the talus
[2019-11-22] MEDS ORDERED: Venlafaxine 75 MG Tab PO SCH (09:00)
[2019-11-22 09:13] LABS: HEMOGLOBIN A1C 9.6 % (4.5-6.2)
--- NOTE | 2019-11-22 10:19 | PCM.PN ---
- General Info Date of Service: 11/22/19 Subjective Update: There were no acute events overnight. Pain has been well controlled with the exception of occasional spasms. No fevers. No shortness of breath or chest pain. Blood sugar this morning was just under 200. Hemoglobin A1c was 9.5. Vital signs have been stable. Surgery is planned for later this afternoon. INR still mildly elevated at 1.7. Functional Status: Reports: Pain Controlled - Review of Systems General: Denies: Fever Musculoskeletal: Reports: Leg Pain - Patient Data Vitals - Most Recent: Last Vital Signs Temp 36.6 C 11/22/19 06:01 Pulse 72 11/22/19 06:01 Resp 18 11/22/19 06:01 BP 126/71 11/22/19 06:01 Pulse Ox 95 11/22/19 06:01 Weight - Most Recent: 100.471 kg I&O - Last 24 Hours: Intake & Output 11/21/19 11/22/19 11/22/19 22:59 06:59 14:59 Intake Total 240 Output Total 400 Balance 240 -400 Lab Results Last 24 Hours: Laboratory Results - last 24 hr 11/21/19 11/21/19 11/22/19 Range/Units 18:11 18:11 06:01 WBC 5.4 5.0 (4.5-11.0) K/uL RBC 4.86 4.50 (4.30-5.90) M/uL Hgb 15.4 H 14.2 (12.0-15.0) g/dL Hct 46.3 43.4 (40.0-54.0) % MCV 95 96 (80-98) fL MCH 32 H 32 H (27-31) pg MCHC 33 33 (32-36) % Plt Count 172 161 (150-400) K/uL Neut % (Auto) 72 H (36-66) % Lymph % (Auto) 16 L (24-44) % Logan % (Auto) 8 H (2-6) % Eos % (Auto) 3 (2-4) % Baso % (Auto) 1 (0-1) % PT (9.5-12.0) sec INR (0.80-1.20) Sodium 139 L (140-148) mmol/L Potassium 5.1 (3.6-5.2) mmol/L Chloride 101 (100-108) mmol/L Carbon Dioxide 27 (21-32) mmol/L Anion Gap 16.1 H (5.0-14.0) mmol/L BUN 9 (7-18) mg/dL Creatinine 0.8 (0.8-1.3) mg/dL Est Cr Clr Drug Dosing 78.56 mL/min Estimated GFR (MDRD) > 60 (>60) Glucose 304 H (74-106) mg/dL Hemoglobin A1c (4.5-6.2) % Calcium 8.2 L (8.5-10.1) mg/dL 11/22/19 11/22/19 11/22/19 Range/Units 06:01 06:01 06:01 WBC (4.5-11.0) K/uL RBC (4.30-5.90) M/uL Hgb (12.0-15.0) g/dL Hct (40.0-54.0) % MCV (80-98) fL MCH (27-31) pg MCHC (32-36) % Plt Count (150-400) K/uL Neut % (Auto) (36-66) % Lymph % (Auto) (24-44) % Logan % (Auto) (2-6) % Eos % (Auto) (2-4) % Baso % (Auto) (0-1) % PT 17.8 H (9.5-12.0) sec INR 1.70 H (0.80-1.20) Sodium 140 (140-148) mmol/L Potassium 4.0 (3.6-5.2) mmol/L Chloride 105 (100-108) mmol/L Carbon Dioxide 25 (21-32) mmol/L Anion Gap 9.9 (5.0-14.0) mmol/L BUN 12 (7-18) mg/dL Creatinine 0.7 L (0.8-1.3) mg/dL Est Cr Clr Drug Dosing 89.78 mL/min Estimated GFR (MDRD) > 60 (>60) Glucose 196 H (74-106) mg/dL Hemoglobin A1c 9.6 H (4.5-6.2) % Calcium 7.9 L (8.5-10.1) mg/dL Med Orders - Current: Current Medications Acetaminophen (Tylenol) 650 mg PO Q4H PRN PRN Reason: Pain (Mild 1-3)/fever Albuterol (Proventil Neb Soln) 2.5 mg NEB Q4H PRN PRN Reason: Shortness Of Breath/wheezing Atorvastatin Calcium (Lipitor) 10 mg PO BEDTIME [facility] Last Admin: 11/21/19 21:06 Dose: 10 mg Cyanocobalamin (Vitamin B12) 1,000 mcg PO DAILY [facility] Gabapentin (Neurontin) 300 mg PO TID [facility] Last Admin: 11/21/19 21:07 Dose: 300 mg Hydromorphone HCl (Dilaudid) 1 mg IVPUSH Q2H PRN PRN Reason: Pain (severe 7-10) Lactated Ringer's (Ringers, Lactated) 1,000 mls @ 100 mls/hr IV ASDIRECTED [facility] Last Admin: 11/22/19 07:36 Dose: 100 mls/hr Insulin Glargine (Lantus Solostar) 25 units SUBCUT DAILY [facility] Insulin Human Lispro (Humalog) 5 unit SUBCUT TIDMEALS [facility] Insulin Human Lispro (Humalog) 0 unit SUBCUT QIDACANDBED [facility]; Protocol Last Admin: 11/21/19 21:07 Dose: 10 units Lorazepam (Ativan) 0.5 mg IVPUSH Q4H PRN PRN Reason: Nausea/Vomiting Magnesium Hydroxide (Milk Of Magnesia) 30 ml PO Q12H PRN PRN Reason: Constipation Melatonin (Melatonin) 9 mg PO BEDTIME [facility] Last Admin: 11/21/19 21:07 Dose: 9 mg Metformin HCl (Glucophage) 1,000 mg PO BIDMEALS [facility] Ondansetron HCl (Zofran Odt) 4 mg PO Q6H PRN PRN Reason: Nausea able to take PO Ondansetron HCl (Zofran) 4 mg IV Q6H PRN PRN Reason: Nausea/Vomiting Oxycodone HCl (Oxycodone) 5 - 10 mg PO Q4H PRN PRN Reason: Pain Last Admin: 11/22/19 02:12 Dose: 10 mg Pantoprazole Sodium (Protonix) 40 mg PO ACBREAKFAST [facility] Senna/Docusate Sodium (Senna Plus) 1 tab PO BID PRN PRN Reason: Constipation Venlafaxine HCl (Effexor) 150 mg PO DAILY [facility] Discontinued Medications Phytonadione 2 mg/ Sodium (Chloride) 51 mls @ 100 mls/hr IV ONETIME ONE Stop: 11/21/19 19:24 Last Admin: 11/21/19 19:58 Dose: 100 mls/hr Pneumococcal Polyvalent Vaccine (Pneumovax 23) 0.5 ml SUBCUT .ONCE ONE Stop: 11/21/19 19:11 - Exam Quality Assessment: No: Supplemental Oxygen General: Alert, Oriented, Cooperative, No Acute Distress Lungs: Normal Respiratory Effort Cardiovascular: Regular Rate, Regular Rhythm GI/Abdominal Exam: Soft, No Distention Extremities: Pedal Edema, Other (left leg wrapped in AMILCAR ) Skin: Warm, Dry Psy/Mental Status: Alert, Normal Affect Sepsis Event Note - Evaluation Sepsis Screening Result: No Definite Risk - Focused Exam Vital Signs: Vital Signs Temp Pulse Resp BP Pulse Ox 11/22/19 06:01 36.6 C 72 18 126/71 95 11/22/19 02:13 36.6 C 60 18 127/74 95 11/21/19 22:38 37.1 C 85 16 107/66 93 L Date Exam was Performed: 11/22/19 Time Exam was Performed: 11:31 - Problem List & Annotations (1) Fracture of fibula, distal SNOMED Code(s): 054589647 Code(s): S82.839A - OTH FRACTURE OF UPPER AND LOWER END OF UNSP FIBULA, INIT Status: Acute Current Visit: Yes Qualifiers: Encounter type: initial encounter Fracture type: closed Fracture morphology: other fracture Laterality: left Qualified Code(s): S82.832A - Other fracture of upper and lower end of left fibula, initial encounter for closed fracture (2) IDDM (insulin dependent diabetes mellitus) SNOMED Code(s): 05178594 Code(s): E11.9 - TYPE 2 DIABETES MELLITUS WITHOUT COMPLICATIONS; Z79.4 - COLLECTIONS SPECIALIST (CURRENT) USE OF INSULIN Status: Chronic Current Visit: Yes (3) Prostate cancer SNOMED Code(s): 467321887 Code(s): C61 - MALIGNANT NEOPLASM OF PROSTATE Status: Chronic Current Visit: Yes (4) Factor V Leiden mutation SNOMED Code(s): 356019862 Code(s): D68.51 - ACTIVATED PROTEIN C RESISTANCE Status: Chronic Current Visit: Yes (5) History of DVT (deep vein thrombosis) SNOMED Code(s): 447871115 Code(s): Z86.718 - PERSONAL HISTORY OF OTHER VENOUS THROMBOSIS AND EMBOLISM Status: Chronic Current Visit: Yes - Problem List Review Problem List Initiated/Reviewed/Updated: Yes - My Orders Last 24 Hours: My Active Orders 11/21/19 18:03 Resuscitation Status Routine 11/21/19 18:54 Patient Status [ADT] Routine Bedrest Bedside Commode [RC] ASDIRECTED Communication Order [RC] PRN Communication Order [RC] PRN Diabetes Education [RC] Click to Edit Intake and Output [RC] QSHIFT Notify Provider Consults [RC] ASDIRECTED Notify Provider Vital Signs [RC] ASDIRECTED Notify Provider [RC] PRN Oxygen Therapy [RC] PRN RT Aerosol Therapy [RC] ASDIRECTED VTE/DVT Education [RC] Per Unit Routine Vital Signs [RC] Q4H Consult to Physician [CONS] Routine Acetaminophen [Tylenol] 650 mg PO Q4H PRN Albuterol [Proventil Neb Soln] 2.5 mg NEB Q4H PRN Docusate Sodium/Sennosides [Senna Plus] 1 tab PO BID PRN HYDROmorphone [Dilaudid] 1 mg IVPUSH Q2H PRN LORazepam [Ativan] 0.5 mg IVPUSH Q4H PRN Magnesium Hydroxide [Milk of Magnesia] 30 ml PO Q12H PRN Ondansetron [Zofran ODT] 4 mg PO Q6H PRN Ondansetron [Zofran] 4 mg IV Q6H PRN oxyCODONE 5 - 10 mg PO Q4H PRN VTE Pharmacological Contraindications [AST] Routine 11/21/19 20:00 Insulin Lispro [HumaLOG] See Protocol SUBCUT QIDACANDBED 11/21/19 21:00 Gabapentin [Neurontin] 300 mg PO TID Melatonin 9 mg PO BEDTIME atorvaSTATin [Lipitor] 10 mg PO BEDTIME 11/21/19 Dinner Nothing per Oral After Midnight Diet [DIET] 11/22/19 07:30 Pantoprazole [ProTONIX] 40 mg PO ACBREAKFAST 11/22/19 07:45 Lactated Ringers [Ringers, Lactated] 1,000 ml IV ASDIRECTED 11/22/19 08:00 Insulin Lispro [HumaLOG] 5 unit SUBCUT TIDMEALS metFORMIN [Glucophage] 1,000 mg PO BIDMEALS 11/22/19 09:00 Cyanocobalamin (Vitamin B12) [Vitamin B12] 1,000 mcg PO DAILY Insulin Glarg,Human.Rec.Analog [LantUS Solostar] 25 units SUBCUT DAILY Venlafaxine [Effexor] 150 mg PO DAILY 11/22/19 11:30 GLUCOSE POC LAB TO COLLECT [POC] QIDACANDBED 11/22/19 14:00 INR,PT,PROTHROMBIN TIME [COAG] Routine 11/22/19 16:30 GLUCOSE POC LAB TO COLLECT [POC] QIDACANDBED 11/22/19 21:00 GLUCOSE POC LAB TO COLLECT [POC] QIDACANDBED 11/23/19 05:00 BASIC METABOLIC PANEL,BMP [CHEM] Timed CBC W/O DIFF,HEMOGRAM [HEME] Timed (1) INR,PT,PROTHROMBIN TIME [COAG] Timed 11/23/19 07:00 PT Evaluation and Treatment [CONS] Routine 11/23/19 07:30 GLUCOSE POC LAB TO COLLECT [POC] QIDACANDBED 11/23/19 11:30 GLUCOSE POC LAB TO COLLECT [POC] QIDACANDBED 11/23/19 16:30 GLUCOSE POC LAB TO COLLECT [POC] QIDACANDBED 11/23/19 21:00 GLUCOSE POC LAB TO COLLECT [POC] QIDACANDBED 11/24/19 07:30 GLUCOSE POC LAB TO COLLECT [POC] QIDACANDBED 11/24/19 11:30 GLUCOSE POC LAB TO COLLECT [POC] QIDACANDBED 11/24/19 16:30 GLUCOSE POC LAB TO COLLECT [POC] QIDACANDBED 11/24/19 21:00 GLUCOSE POC LAB TO COLLECT [POC] QIDACANDBED 11/25/19 07:30 GLUCOSE POC LAB TO COLLECT [POC] QIDACANDBED 11/25/19 11:30 GLUCOSE POC LAB TO COLLECT [POC] QIDACANDBED 11/25/19 16:30 GLUCOSE POC LAB TO COLLECT [POC] QIDACANDBED 11/25/19 21:00 GLUCOSE POC LAB TO COLLECT [POC] QIDACANDBED 11/26/19 07:30 GLUCOSE POC LAB TO COLLECT [POC] QIDACANDBED 11/26/19 11:30 GLUCOSE POC LAB TO COLLECT [POC] QIDACANDBED 11/26/19 16:30 GLUCOSE POC LAB TO COLLECT [POC] QIDACANDBED 11/26/19 21:00 GLUCOSE POC LAB TO COLLECT [POC] QIDACANDBED 11/27/19 07:30 GLUCOSE POC LAB TO COLLECT [POC] QIDACANDBED - Plan Plan:: ASSESSMENT AND PLAN - Displaced left distal fibula fracture-surgery is planned for later in the day as long as his INR comes down a little further. Pain control has been acceptable so far. -Pain control -No weightbearing on the left leg -Surgical intervention per Dr Irvin Zelaya this afternoon -Repeat INR this afternoon Insulin-dependent diabetes mellitus with complications-suboptimally controlled, probably mostly due to patient noncompliance. Hemoglobin A1c is 9.5. -25 units of Lantus this morning -5 units of short acting insulin with meals -Medium dose sliding scale -Continue metformin History of DVT/PE-factor V Leiden deficiency. He is chronically anticoagulated. INR is down to 1.7 today and I expect it will drop a little further prior to surgery. -INR this afternoon -INR in the morning History of prostate cancer-stable. Maintenance issues - - DVT prophylaxis -start enoxaparin tomorrow morning and restart warfarin at that time as well - GI prophylaxis -PPI - Nutrition -nothing by mouth until after surgery - Lopez catheter -not indicated Disposition -I would anticipate discharge home with home care ([facility]) versus subacute rehab after the hospital stay Primary care physician -Dr. Sandra Frederick M.D.
[2019-11-22] MEDS: Insulin Lispro 100 Unit/ML 3 ML KwikPen SUBCUT SCH ×7 (10:40→21:39)
[2019-11-22] MEDS: Pantoprazole 40 MG Tab.CR PO SCH (10:40)
[2019-11-22] MEDS: metFORMIN 500 MG Tab PO SCH ×2 (10:40→18:52)
[2019-11-22] MEDS: Cyanocobalamin (Vitamin B12) 1,000 MCG Tab PO SCH (10:41)
[2019-11-22] MEDS: Insulin Glargine,Human Rec. Analog 100 Units/ML 3 ML Pen SUBCUT SCH (10:52)
[2019-11-22] MEDS: Gabapentin 300 MG Cap PO SCH ×3 (10:54→21:39)
[2019-11-22] MEDS: Venlafaxine 75 MG Cap.ER PO SCH (11:42)
[2019-11-22] MEDS ORDERED: Bupivacaine 0.5% 30 ML SDV ONE (13:56)
[2019-11-22] MEDS ORDERED: ceFAZolin 2 GM in Premix Bag 1 BAG IV ONE (14:46)
[2019-11-22] MEDS ORDERED: fentaNYL 250 MCG/5 ML SDV ONE (15:56)
[2019-11-22] MEDS ORDERED: Neostigmine Methylsulfate 1 MG/ML 5 ML Syringe ONE (15:57)
[2019-11-22] MEDS ORDERED: Rocuronium 50 MG/5 ML Vial ONE (15:57)
[2019-11-22] MEDS ORDERED: Dexamethasone 4 MG/ML SDV ONE (15:57)
[2019-11-22] MEDS ORDERED: Ondansetron 4 MG/2 ML SDV ONE (15:57)
[2019-11-22] MEDS ORDERED: Glycopyrrolate 0.2 MG/ML 5 ML MDV ONE (15:57)
[2019-11-22] MEDS ORDERED: Propofol 200 MG/20 ML SDV ONE (15:57)
[2019-11-22] MEDS: Melatonin 3 MG Tab PO SCH (21:39)
[2019-11-22] MEDS: atorvaSTATin 10 MG Tab PO SCH (21:39)
[2019-11-23] MEDS: Lactated Ringers 1,000 ML IV SCH (06:06)
[2019-11-23] MEDS: metFORMIN 500 MG Tab PO SCH ×2 (08:41→17:19)
[2019-11-23] MEDS: Pantoprazole 40 MG Tab.CR PO SCH (08:42)
[2019-11-23] MEDS: Venlafaxine 75 MG Cap.ER PO SCH (08:42)
[2019-11-23] MEDS: Gabapentin 300 MG Cap PO SCH ×3 (08:43→21:14)
[2019-11-23] MEDS: Cyanocobalamin (Vitamin B12) 1,000 MCG Tab PO SCH (08:43)
[2019-11-23] MEDS: Insulin Glargine,Human Rec. Analog 100 Units/ML 3 ML Pen SUBCUT SCH (08:45)
[2019-11-23] MEDS: Insulin Lispro 100 Unit/ML 3 ML KwikPen SUBCUT SCH ×7 (08:46→21:13)
[2019-11-23] MEDS: Enoxaparin 40 MG/0.4 ML Syringe SUBCUT SCH (09:52)
--- NOTE | 2019-11-23 09:56 | PCM.PN ---
- General Info Date of Service: 11/23/19 Subjective Update: No acute events overnight. Patient had successful surgical repair of his distal fibula fracture as well as the tear of the deltoid ligament. No significant pain at this time other than intermittent spasms of the lower leg. No shortness of breath. No nausea. Overall he is feeling well. He has not worked with physical therapy as of yet. Moderate elevation of blood sugar this morning. Functional Status: Reports: Pain Controlled, Tolerating Diet - Review of Systems General: Denies: Fever - Patient Data Vitals - Most Recent: Last Vital Signs Temp 36.5 C 11/23/19 07:00 Pulse 86 11/23/19 07:00 Resp 20 11/23/19 07:00 BP 108/62 11/23/19 07:00 Pulse Ox 95 11/23/19 07:00 Weight - Most Recent: 100.471 kg I&O - Last 24 Hours: Intake & Output 11/22/19 11/23/19 11/23/19 22:59 06:59 14:59 Intake Total 480 2558 Output Total 250 1075 300 Balance 230 1483 -300 Lab Results Last 24 Hours: Laboratory Results - last 24 hr 11/22/19 11/23/19 11/23/19 Range/Units 14:05 04:15 04:15 WBC 6.1 (4.5-11.0) K/uL RBC 4.41 (4.30-5.90) M/uL Hgb 14.3 (12.0-15.0) g/dL Hct 41.8 (40.0-54.0) % MCV 95 (80-98) fL MCH 32 H (27-31) pg MCHC 34 (32-36) % Plt Count 151 (150-400) K/uL PT 14.4 H 12.0 (9.5-12.0) sec INR 1.36 H 1.12 (0.80-1.20) Sodium (140-148) mmol/L Potassium (3.6-5.2) mmol/L Chloride (100-108) mmol/L Carbon Dioxide (21-32) mmol/L Anion Gap (5.0-14.0) mmol/L BUN (7-18) mg/dL Creatinine (0.8-1.3) mg/dL Est Cr Clr Drug Dosing mL/min Estimated GFR (MDRD) (>60) Glucose (74-106) mg/dL Calcium (8.5-10.1) mg/dL 11/23/19 Range/Units 04:15 WBC (4.5-11.0) K/uL RBC (4.30-5.90) M/uL Hgb (12.0-15.0) g/dL Hct (40.0-54.0) % MCV (80-98) fL MCH (27-31) pg MCHC (32-36) % Plt Count (150-400) K/uL PT (9.5-12.0) sec INR (0.80-1.20) Sodium 138 L (140-148) mmol/L Potassium 4.5 (3.6-5.2) mmol/L Chloride 104 (100-108) mmol/L Carbon Dioxide 26 (21-32) mmol/L Anion Gap 12.5 (5.0-14.0) mmol/L BUN 8 (7-18) mg/dL Creatinine 0.7 L (0.8-1.3) mg/dL Est Cr Clr Drug Dosing 89.48 mL/min Estimated GFR (MDRD) > 60 (>60) Glucose 203 H (74-106) mg/dL Calcium 8.2 L (8.5-10.1) mg/dL Med Orders - Current: Current Medications Acetaminophen (Tylenol) 650 mg PO Q4H PRN PRN Reason: Pain (Mild 1-3)/fever Albuterol (Proventil Neb Soln) 2.5 mg NEB Q4H PRN PRN Reason: Shortness Of Breath/wheezing Atorvastatin Calcium (Lipitor) 10 mg PO BEDTIME [facility] Last Admin: 11/22/19 21:39 Dose: 10 mg Cyanocobalamin (Vitamin B12) 1,000 mcg PO DAILY [facility] Last Admin: 11/23/19 08:43 Dose: 1,000 mcg Enoxaparin Sodium (Lovenox) 40 mg SUBCUT DAILY [facility] Last Admin: 11/23/19 09:52 Dose: 40 mg Gabapentin (Neurontin) 300 mg PO TID [facility] Last Admin: 11/23/19 08:43 Dose: 300 mg Hydromorphone HCl (Dilaudid) 1 mg IVPUSH Q2H PRN PRN Reason: Pain (severe 7-10) Insulin Glargine (Lantus Solostar) 25 units SUBCUT DAILY [facility] Last Admin: 11/23/19 08:45 Dose: 25 units Insulin Human Lispro (Humalog) 5 unit SUBCUT TIDMEALS [facility] Last Admin: 11/23/19 08:46 Dose: 5 units Insulin Human Lispro (Humalog) 0 unit SUBCUT QIDACANDBED [facility]; Protocol Last Admin: 11/23/19 08:46 Dose: 4 units Lorazepam (Ativan) 0.5 mg IVPUSH Q4H PRN PRN Reason: Nausea/Vomiting Magnesium Hydroxide (Milk Of Magnesia) 30 ml PO Q12H PRN PRN Reason: Constipation Melatonin (Melatonin) 9 mg PO BEDTIME [facility] Last Admin: 11/22/19 21:39 Dose: 9 mg Metformin HCl (Glucophage) 1,000 mg PO BIDMEALS [facility] Last Admin: 11/23/19 08:41 Dose: 1,000 mg Ondansetron HCl (Zofran Odt) 4 mg PO Q6H PRN PRN Reason: Nausea able to take PO Ondansetron HCl (Zofran) 4 mg IV Q6H PRN PRN Reason: Nausea/Vomiting Oxycodone HCl (Oxycodone) 5 - 10 mg PO Q4H PRN PRN Reason: Pain Last Admin: 11/22/19 02:12 Dose: 10 mg Pantoprazole Sodium (Protonix) 40 mg PO ACBREAKFAST [facility] Last Admin: 11/23/19 08:42 Dose: 40 mg Pneumococcal Polyvalent Vaccine (Pneumovax 23) 0.5 ml SUBCUT .ONCE ONE Stop: 11/23/19 12:01 Senna/Docusate Sodium (Senna Plus) 1 tab PO BID PRN PRN Reason: Constipation Venlafaxine HCl (Effexor Xr) 150 mg PO DAILY [facility] Last Admin: 11/23/19 08:42 Dose: 150 mg Warfarin Sodium (Coumadin) 5 mg PO DAILY@1300 [facility] Discontinued Medications Bupivacaine HCl (Marcaine 0.5%) Confirm Administered Dose 30 ml .ROUTE .STK-MED ONE Stop: 11/22/19 13:57 Last Admin: 11/22/19 17:34 Dose: 30 ml Dexamethasone (Dexamethasone) Confirm Administered Dose 4 mg .ROUTE .STK-MED ONE Stop: 11/22/19 15:58 Fentanyl (Sublimaze) Confirm Administered Dose 250 mcg .ROUTE .STK-MED ONE Stop: 11/22/19 15:57 Glycopyrrolate (Robinul) Confirm Administered Dose 1 mg .ROUTE .STK-MED ONE Stop: 11/22/19 15:58 Phytonadione 2 mg/ Sodium (Chloride) 51 mls @ 100 mls/hr IV ONETIME ONE Stop: 11/21/19 19:24 Last Admin: 11/21/19 19:58 Dose: 100 mls/hr Lactated Ringer's (Ringers, Lactated) 1,000 mls @ 100 mls/hr IV ASDIRECTED [facility] Last Admin: 11/23/19 06:06 Dose: 100 mls/hr Cefazolin Sodium/Dextrose 2 gm (/ Premix) 50 mls @ 100 mls/hr IV ONETIME ONE Stop: 11/22/19 15:15 Last Admin: 11/22/19 16:26 Dose: 100 mls/hr Neostigmine Methylsulfate (Neostigmine) Confirm Administered Dose 5 mg .ROUTE .STK-MED ONE Stop: 11/22/19 15:58 Ondansetron HCl (Zofran) Confirm Administered Dose 4 mg .ROUTE .STK-MED ONE Stop: 11/22/19 15:58 Pneumococcal Polyvalent Vaccine (Pneumovax 23) 0.5 ml SUBCUT .ONCE ONE Stop: 11/21/19 19:11 Last Admin: 11/22/19 11:43 Dose: Not Given Propofol (Diprivan 20 Ml) Confirm Administered Dose 200 mg .ROUTE .STK-MED ONE Stop: 11/22/19 15:58 Rocuronium [place] (Zemuron) Confirm Administered Dose 50 mg .ROUTE .STK-MED ONE Stop: 11/22/19 15:58 - Exam Quality Assessment: Supplemental Oxygen General: Alert, Oriented, Cooperative, No Acute Distress Lungs: Normal Respiratory Effort Cardiovascular: Regular Rate, Regular Rhythm GI/Abdominal Exam: Soft, No Distention Extremities: Other (left leg wrapped in AMILCAR and splint ) Skin: Warm, Dry Psy/Mental Status: Alert, Normal Affect Sepsis Event Note - Evaluation Sepsis Screening Result: No Definite Risk - Focused Exam Vital Signs: Vital Signs Temp Pulse Resp BP Pulse Ox 11/23/19 07:00 36.5 C 86 20 108/62 95 11/23/19 03:00 36.3 C 72 110/70 95 11/23/19 00:30 36.3 C 68 16 117/79 93 L 11/22/19 23:30 74 16 130/78 94 L 11/22/19 22:37 36.3 C 68 16 150/88 H 98 11/22/19 22:00 64 18 138/73 97 Date Exam was Performed: 11/23/19 Time Exam was Performed: 11:32 - Problem List & Annotations (1) Fracture of fibula, distal SNOMED Code(s): 271906725 Code(s): S82.839A - OTH FRACTURE OF UPPER AND LOWER END OF UNSP FIBULA, INIT Status: Acute Current Visit: Yes Qualifiers: Encounter type: initial encounter Fracture type: closed Fracture morphology: other fracture Laterality: left Qualified Code(s): S82.832A - Other fracture of upper and lower end of left fibula, initial encounter for closed fracture (2) IDDM (insulin dependent diabetes mellitus) SNOMED Code(s): 35922551 Code(s): E11.9 - TYPE 2 DIABETES MELLITUS WITHOUT COMPLICATIONS; Z79.4 - S[employer]IOR [employer]IST (CURRENT) USE OF INSULIN Status: Chronic Current Visit: Yes (3) Prostate cancer SNOMED Code(s): 124316302 Code(s): C61 - MALIGNANT NEOPLASM OF PROSTATE Status: Chronic Current Visit: Yes (4) Factor V Leiden mutation SNOMED Code(s): 143037708 Code(s): D68.51 - ACTIVATED PROTEIN C RESISTANCE Status: Chronic Current Visit: Yes (5) History of DVT (deep vein thrombosis) SNOMED Code(s): 000444558 Code(s): Z86.718 - PERSONAL HISTORY OF OTHER VENOUS THROMBOSIS AND EMBOLISM Status: Chronic Current Visit: Yes - Problem List Review Problem List Initiated/Reviewed/Updated: Yes - My Orders Last 24 Hours: My Active Orders 11/22/19 09:00 Cyanocobalamin (Vitamin B12) [Vitamin B12] 1,000 mcg PO DAILY Insulin Glarg,Human.Rec.Analog [LantUS Solostar] 25 units SUBCUT DAILY 11/22/19 11:00 Venlafaxine [Effexor XR] 150 mg PO DAILY 11/23/19 07:00 PT Evaluation and Treatment [CONS] Routine 11/23/19 09:00 Enoxaparin [Lovenox] 40 mg SUBCUT DAILY 11/23/19 09:54 Convert IV to Saline Lock [OM.PC] Routine 11/23/19 09:55 Up With Assistance [RC] ASDIRECTED Weight bearing status [OM.PC] Routine 11/23/19 11:30 GLUCOSE POC LAB TO COLLECT [POC] QIDACANDBED 11/23/19 12:00 Pneumococcal Polyvalent-23 Vac [Pneumovax 23] 0.5 ml SUBCUT .ONCE ONE 11/23/19 13:00 Warfarin [Coumadin] 5 mg PO DAILY@1300 11/23/19 16:30 GLUCOSE POC LAB TO COLLECT [POC] QIDACANDBED 11/23/19 21:00 GLUCOSE POC LAB TO COLLECT [POC] QIDACANDBED 11/24/19 05:00 INR,PT,PROTHROMBIN TIME [COAG] Timed 11/24/19 07:30 GLUCOSE POC LAB TO COLLECT [POC] QIDACANDBED 11/24/19 11:30 GLUCOSE POC LAB TO COLLECT [POC] QIDACANDBED 11/24/19 16:30 GLUCOSE POC LAB TO COLLECT [POC] QIDACANDBED 11/24/19 21:00 GLUCOSE POC LAB TO COLLECT [POC] QIDACANDBED 11/25/19 07:30 GLUCOSE POC LAB TO COLLECT [POC] QIDACANDBED 11/25/19 11:30 GLUCOSE POC LAB TO COLLECT [POC] QIDACANDBED 11/25/19 16:30 GLUCOSE POC LAB TO COLLECT [POC] QIDACANDBED 11/25/19 21:00 GLUCOSE POC LAB TO COLLECT [POC] QIDACANDBED 11/26/19 07:30 GLUCOSE POC LAB TO COLLECT [POC] QIDACANDBED 11/26/19 11:30 GLUCOSE POC LAB TO COLLECT [POC] QIDACANDBED 11/26/19 16:30 GLUCOSE POC LAB TO COLLECT [POC] QIDACANDBED 11/26/19 21:00 GLUCOSE POC LAB TO COLLECT [POC] QIDACANDBED 11/27/19 07:30 GLUCOSE POC LAB TO COLLECT [POC] QIDACANDBED - Plan Plan:: ASSESSMENT AND PLAN - Displaced left distal fibula fracture-had successful ORIF of the left ankle as well as ligament repair yesterday. Pain is very well controlled. -Pain control -Toe-touch weightbearing left leg -Physical therapy Insulin-dependent diabetes mellitus with complications-suboptimally controlled, probably mostly due to patient noncompliance. Hemoglobin A1c is 9.5. -25 units of Lantus this morning, anticipate return to usual dosing tomorrow -5 units of short acting insulin with meals -Medium dose sliding scale -Continue metformin History of DVT/PE-factor V Leiden deficiency. He is chronically anticoagulated. INR is normal today after reversal. -Restart warfarin today -Enoxaparin and DVT prophylaxis dosing -INR in the morning History of prostate cancer-stable. Maintenance issues - - DVT prophylaxis -start enoxaparin and restart warfarin - GI prophylaxis -PPI - Nutrition -consistent carbohydrate - Lopez catheter -not indicated Disposition -I would anticipate discharge home with home care ([facility]) versus subacute rehab after the hospital stay Primary care physician -Dr. Sandra Frederick M.D.
[2019-11-23] MEDS ORDERED: Pneumococcal Polyvalent-23 Vaccine 0.5 ML SDV SUBCUT ONE (12:00)
[2019-11-23] MEDS: Magnesium Hydroxide 400 MG/5 ML Susp 30 ML Cup PO PRN (12:57)
[2019-11-23] MEDS: Warfarin 5 MG Tab PO SCH (12:57)
[2019-11-23] MEDS: atorvaSTATin 10 MG Tab PO SCH (21:14)
[2019-11-23] MEDS: Melatonin 3 MG Tab PO SCH (21:14)
[2019-11-23] MEDS ORDERED: Tamsulosin 0.4 MG Cap.ER PO SCH (22:26)
[2019-11-23] MEDS ORDERED: Lidocaine 2% Jelly 10 ML Urojet MUCMEM ONE (22:42)
--- NOTE | 2019-11-24 07:01 | PCM.SN ---
- Free Text/Narrative Note: 11/23/2019 at 2242 call from [address] [place] [address]; mr. Sarah has not voided since cath. removal O: bladder scan >600 ml A: Urinary retention P: re insert youngblood cath over night add Flomax 0.4mg po daily continue with present plan of care.
[2019-11-24 07:38] VITALS: BP 134/65; PULSE 55
[2019-11-24] MEDS: Insulin Lispro 100 Unit/ML 3 ML KwikPen SUBCUT SCH ×4 (08:19→12:12)
[2019-11-24] MEDS: metFORMIN 500 MG Tab PO SCH (08:19)
[2019-11-24] MEDS: Pantoprazole 40 MG Tab.CR PO SCH (08:19)
[2019-11-24] MEDS: Venlafaxine 75 MG Cap.ER PO SCH (08:20)
[2019-11-24] MEDS: Gabapentin 300 MG Cap PO SCH ×2 (08:21→12:18)
[2019-11-24] MEDS: Cyanocobalamin (Vitamin B12) 1,000 MCG Tab PO SCH (08:21)
[2019-11-24] MEDS: Enoxaparin 40 MG/0.4 ML Syringe SUBCUT SCH (08:21)
[2019-11-24] MEDS: Insulin Glargine,Human Rec. Analog 100 Units/ML 3 ML Pen SUBCUT SCH (08:22)
[2019-11-24] MEDS: Magnesium Hydroxide 400 MG/5 ML Susp 30 ML Cup PO PRN (08:37)
--- NOTE | 2019-11-24 10:17 | PCM.DCSUM1 ---
Discharge Summary - Hospital Course Brief History: 74-year-old male with history of insulin-dependent diabetes mellitus, hypertension and obesity with a BMI greater than 30 who presented with severe left ankle pain after falling at home. He was admitted for surgical management of a complex left ankle fracture and probable tear of the left deltoid ligament Diagnosis: Stroke: No - Discharge Data Discharge Date: 11/24/19 Discharge Disposition: DC/Tfer to SNF 03 Condition: Good - Referral to Home Health Primary Care Physician: PCP None - Discharge Diagnosis/Problem(s) (1) Fracture of fibula, distal SNOMED Code(s): 758475216 ICD Code: S82.839A - OTH FRACTURE OF UPPER AND LOWER END OF UNSP FIBULA, INIT Status: Acute Current Visit: Yes Qualifiers: Encounter type: initial encounter Fracture type: closed Fracture morphology: other fracture Laterality: left Qualified Code(s): S82.832A - Other fracture of upper and lower end of left fibula, initial encounter for closed fracture (2) IDDM (insulin dependent diabetes mellitus) SNOMED Code(s): 91353980 ICD Code: E11.9 - TYPE 2 DIABETES MELLITUS WITHOUT COMPLICATIONS; Z79.4 - JAIL (CURRENT) USE OF INSULIN Status: Chronic Current Visit: Yes (3) Prostate cancer SNOMED Code(s): 681030625 ICD Code: C61 - MALIGNANT NEOPLASM OF PROSTATE Status: Chronic Current Visit: Yes (4) Factor V Leiden mutation SNOMED Code(s): 819160288 ICD Code: D68.51 - ACTIVATED PROTEIN C RESISTANCE Status: Chronic Current Visit: Yes (5) History of DVT (deep vein thrombosis) SNOMED Code(s): 185200895 ICD Code: Z86.718 - PERSONAL HISTORY OF OTHER VENOUS THROMBOSIS AND EMBOLISM Status: Chronic Current Visit: Yes (6) Acute urinary retention SNOMED Code(s): 694242273 ICD Code: R33.8 - OTHER RETENTION OF URINE Status: Acute Current Visit: Yes - Patient Summary/Data Consults: Consultations 11/21/19 18:54 Consult to Physician [CONS] Routine Consulting Provider: Irvin Zelaya Courtesy Call Completed to Consulting Physician: Yes Reason for Consult: left ankle fracture 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 PT Reason for Consult: Post op Ortho Surgery Special Instructions: TTWB on left This query below is only for informational purposes and is not editable. Admission Diagnosis/Problem: Ankle fracture 11/23/19 07:00 PT Evaluation and Treatment [CONS] Routine Please Evaluate and Treat. PT Reason for Consult: Strengthening Special Instructions: after surgery 11/22 This query below is only for informational purposes and is not editable. Hospital Course: Moose presented to the emergency room with severe left ankle pain after a twisting motion led to a snap and severe pain in the left ankle. X-ray imaging in the emergency room suggested a displaced fracture of the distal fibula with disruption of the ankle joint concerning for tear of the deltoid ligament. His INR was elevated at more than 3. He was admitted to the hospital for surgical intervention. At the time of admission he was given IV vitamin K with an attempt to reverse his INR. He was provided pain control and was nonweightbearing on the left leg. By the time of surgery the next afternoon the INR was reversed to 1.3. The patient had an uneventful ORIF of the left ankle and also a repair of the left deltoid ligament. His initial postoperative course was uneventful. Unfortunately the second night after admission he developed acute urinary retention and a Youngblood catheter was placed. He reports a history of a similar occurrence after his hip surgery and had to have a catheter in for a couple of weeks. Otherwise his stay has been fairly uneventful. Blood sugars have been fairly well controlled using mealtime insulin along with a smaller dose of his usual long-acting insulin. I did note that his hemoglobin A1c was 9.5 on presentation but the patient did admit he has not been consistent with using his insulin or watching what he eats. We have restarted his warfarin and he should be taking 5 mg daily until early next week when his INR should be therapeutic again. He will have subcutaneous enoxaparin at a DVT dose for the next 3 days to help bridge to a therapeutic INR. I suspect his urinary retention was related to anesthesia and narcotic pain medications. We did start tamsulosin. The plan is to keep the catheter in place for 10 to 14 days before a trial of voiding. Vital signs have otherwise been stable. He will be toe-touch weightbearing on the left leg. He does have 6 steps to navigate to get into his home and we felt that subacute rehab would be the best route for him before going home. He was agreeable to that plan and will be discharged to the transitional care unit today for further physical therapy. - Patient Instructions Diet: Diabetic Diet Activity: Partial Weight Bearing (Toe touch weight bearing left leg ) Showering/Bathing: May Shower (need to cover splint on left leg ) Notify Provider of: Fever, Increased Pain Other/Special Instructions: 1. Referral to PT and OT for strengthening after left fibular fracture. 2. Check blood sugars QID AC AND BEDTIME. 3. INR on 11/27 Dx: hx of DVT/factor V Leiden deficiency. 4. FULL CODE. 5. Leave youngblood catheter in place until patient is ready to discharge from the TCU. Perform routine youngblood catheter cares. 6. Enoxaparin daily for three doses (11/25, , 11/26). 7. Leave splint on left leg in place until follow up with Dr Zelaya - Discharge Plan *PRESCRIPTION DRUG MONITORING PROGRAM REVIEWED*: Not Applicable *COPY OF PRESCRIPTION DRUG MONITORING REPORT IN PATIENT RADHA: Not Applicable Prescriptions/Med Rec: Acetaminophen [Tylenol] 650 mg PO Q6H PRN #200 tablet PRN Reason: Pain/Fever Docusate Sodium/Sennosides [Senna Plus] 1 tab PO BID PRN #30 tablet PRN Reason: Constipation Enoxaparin [Lovenox] 40 mg SUBCUT DAILY #3 syringe Insulin Glargine,Hum.Rec.Anlog [Tena Clemons] 25 unit SQ DAILY #1 pen oxyCODONE 5 mg PO Q4H PRN #40 tablet PRN Reason: Pain (Moderate 4-6) Tamsulosin [Flomax] 0.4 mg PO BEDTIME #15 cap.er Home Medications: Home Meds Multivitamin with Minerals [Multiple Vitamin] 1 each PO DAILY 05/31/14 [History] Warfarin [Coumadin] 5 mg PO DAILY 05/31/14 [History] Ferrous Sulfate 324 mg PO DAILY 09/09/14 [History] Furosemide [Lasix] 20 mg PO DAILY 09/09/14 [History] Cyanocobalamin (Vitamin B-12) [B-12] 1,000 mcg PO DAILY 03/23/15 [History] atorvaSTATin [Lipitor] 10 mg PO BEDTIME 03/23/15 [History] Calcium Carbonate/Vitamin D3 [Calcium 250+D] 3 tab PO DAILY 11/17/17 [History] Omeprazole 40 mg PO DAILY 11/17/17 [History] SitaGLIPtin [Januvia] 100 mg PO DAILY 11/17/17 [History] Triamcinolone Acetonide [Kenalog 0.1% Crm] 1 applic TOP TID 11/17/17 [History] Gabapentin [Neurontin] 300 mg PO TID 08/19/18 [History] Phytonadione [Vitamin K] 100 mcg PO DAILY 08/19/18 [History] Insulin Aspart [NovoLOG] 5 units SQ TIDMEALS 11/13/19 [History] Venlafaxine HCl [Venlafaxine ER] 150 mg PO DAILY 11/22/19 [History] metFORMIN HCl [Metformin HCl ER] 1,000 mg PO BIDMEALS 11/22/19 [History] Acetaminophen [Tylenol] 650 mg PO Q6H PRN #200 tablet 11/24/19 [Rx] Docusate Sodium/Sennosides [Senna Plus] 1 tab PO BID PRN #30 tablet 11/24/19 [Rx ] Enoxaparin [Lovenox] 40 mg SUBCUT DAILY #3 syringe 11/24/19 [Rx] Insulin Glargine,Hum.Rec.Anlog [[place] Solostar] 25 unit SQ DAILY #1 pen [Rx] Tamsulosin [Flomax] 0.4 mg PO BEDTIME #15 cap.er 11/24/19 [Rx] oxyCODONE 5 mg PO Q4H PRN #40 tablet 11/24/19 [Rx] Oxygen Therapy Mode: Room Air Referrals: Irvin Zelaya MD [Physician] - 12/08/19 2:15 pm - Discharge Summary/Plan Comment DC Time >30 min.: Yes (45-new [facility] discharge ) - Patient Data Vitals - Most Recent: Last Vital Signs Temp 36.0 C L 11/24/19 07:36 Pulse 55 L 11/24/19 07:36 Resp 16 11/24/19 07:36 BP 134/65 11/24/19 07:36 Pulse Ox 97 11/24/19 07:36 Weight - Most Recent: 100.471 kg I&O - Last 24 hours: Intake & Output 11/23/19 11/24/19 11/24/19 22:59 06:59 14:59 Intake Total 1240 300 540 Output Total 1075 Balance 1240 -775 540 Lab Results - Last 24 hrs: Laboratory Results - last 24 hr 11/24/19 Range/Units 04:15 PT 11.9 (9.5-12.0) sec INR 1.11 (0.80-1.20) Med Orders - Current: Current Medications Acetaminophen (Tylenol) 650 mg PO Q4H PRN PRN Reason: Pain (Mild 1-3)/fever Last Admin: 11/23/19 14:55 Dose: 650 mg Albuterol (Proventil Neb Soln) 2.5 mg NEB Q4H PRN PRN Reason: Shortness Of Breath/wheezing Atorvastatin Calcium (Lipitor) 10 mg PO BEDTIME [facility] Last Admin: 11/23/19 21:14 Dose: 10 mg Cyanocobalamin (Vitamin B12) 1,000 mcg PO DAILY [facility] Last Admin: 11/24/19 08:21 Dose: 1,000 mcg Enoxaparin Sodium (Lovenox) 40 mg SUBCUT DAILY [facility] Last Admin: 11/24/19 08:21 Dose: 40 mg Gabapentin (Neurontin) 300 mg PO TID [facility] Last Admin: 11/24/19 08:21 Dose: 300 mg Hydromorphone HCl (Dilaudid) 1 mg IVPUSH Q2H PRN PRN Reason: Pain (severe 7-10) Insulin Glargine (Lantus Solostar) 25 units SUBCUT DAILY [facility] Last Admin: 11/24/19 08:22 Dose: 25 units Insulin Human Lispro (Humalog) 5 unit SUBCUT TIDMEALS [facility] Last Admin: 11/24/19 08:20 Dose: Not Given Insulin Human Lispro (Humalog) 0 unit SUBCUT QIDACANDBED [facility]; Protocol Last Admin: 11/24/19 08:19 Dose: Not Given Lorazepam (Ativan) 0.5 mg IVPUSH Q4H PRN PRN Reason: Nausea/Vomiting Magnesium Hydroxide (Milk Of Magnesia) 30 ml PO Q12H PRN PRN Reason: Constipation Last Admin: 11/24/19 08:37 Dose: 30 ml Melatonin (Melatonin) 9 mg PO BEDTIME [facility] Last Admin: 11/23/19 21:14 Dose: 9 mg Metformin HCl (Glucophage) 1,000 mg PO BIDMEALS [facility] Last Admin: 11/24/19 08:19 Dose: 1,000 mg Ondansetron HCl (Zofran Odt) 4 mg PO Q6H PRN PRN Reason: Nausea able to take PO Ondansetron HCl (Zofran) 4 mg IV Q6H PRN PRN Reason: Nausea/Vomiting Oxycodone HCl (Oxycodone) 5 - 10 mg PO Q4H PRN PRN Reason: Pain Last Admin: 11/22/19 02:12 Dose: 10 mg Pantoprazole Sodium (Protonix) 40 mg PO ACBREAKFAST [facility] Last Admin: 11/24/19 08:19 Dose: 40 mg Senna/Docusate Sodium (Senna Plus) 1 tab PO BID PRN PRN Reason: Constipation Tamsulosin HCl (Flomax) 0.4 mg PO BEDTIME [facility] Last Admin: 11/23/19 23:15 Dose: 0.4 mg Venlafaxine HCl (Effexor Xr) 150 mg PO DAILY [facility] Last Admin: 11/24/19 08:20 Dose: 150 mg Warfarin Sodium (Coumadin) 5 mg PO DAILY@1300 [facility] Last Admin: 11/23/19 12:57 Dose: 5 mg Discontinued Medications Bupivacaine HCl (Marcaine 0.5%) Confirm Administered Dose 30 ml .ROUTE .STK-MED ONE Stop: 11/22/19 13:57 Last Admin: 11/22/19 17:34 Dose: 30 ml Dexamethasone (Dexamethasone) Confirm Administered Dose 4 mg .ROUTE .STK-MED ONE Stop: 11/22/19 15:58 Fentanyl (Sublimaze) Confirm Administered Dose 250 mcg .ROUTE .STK-MED ONE Stop: 11/22/19 15:57 Glycopyrrolate (Robinul) Confirm Administered Dose 1 mg .ROUTE .STK-MED ONE Stop: 11/22/19 15:58 Phytonadione 2 mg/ Sodium (Chloride) 51 mls @ 100 mls/hr IV ONETIME ONE Stop: 11/21/19 19:24 Last Admin: 11/21/19 19:58 Dose: 100 mls/hr Lactated Ringer's (Ringers, Lactated) 1,000 mls @ 100 mls/hr IV ASDIRECTED [facility] Last Admin: 11/23/19 06:06 Dose: 100 mls/hr Cefazolin Sodium/Dextrose 2 gm (/ Premix) 50 mls @ 100 mls/hr IV ONETIME ONE Stop: 11/22/19 15:15 Last Admin: 11/22/19 16:26 Dose: 100 mls/hr Lidocaine HCl (Xylocaine 2% Jelly) 10 ml MUCMEM ONETIME ONE Stop: 11/23/19 22:43 Last Admin: 11/23/19 23:16 Dose: 10 ml Neostigmine Methylsulfate (Neostigmine) Confirm Administered Dose 5 mg .ROUTE .STK-MED ONE Stop: 11/22/19 15:58 Ondansetron HCl (Zofran) Confirm Administered Dose 4 mg .ROUTE .STK-MED ONE Stop: 11/22/19 15:58 Pneumococcal Polyvalent Vaccine (Pneumovax 23) 0.5 ml SUBCUT .ONCE ONE Stop: 11/21/19 19:11 Last Admin: 11/22/19 11:43 Dose: Not Given Pneumococcal Polyvalent Vaccine (Pneumovax 23) 0.5 ml SUBCUT .ONCE ONE Stop: 11/23/19 12:01 Last Admin: 11/23/19 12:54 Dose: 0.5 ml Propofol (Diprivan 20 Ml) Confirm Administered Dose 200 mg .ROUTE .STK-MED ONE Stop: 11/22/19 15:58 Rocuronium [place] (Zemuron) Confirm Administered Dose 50 mg .ROUTE .STK-MED ONE Stop: 11/22/19 15:58 - Exam Quality Assessment: Denies: Supplemental Oxygen General: Reports: Alert, Oriented, Cooperative, No Acute Distress Lungs: Reports: Normal Respiratory Effort Cardiovascular: Reports: Regular Rate, Regular Rhythm GI/Abdominal Exam: Soft, No Distention Extremities: No Pedal Edema, Other (left leg in cast from below the knee to the toes ) Skin: Reports: Warm, Dry Psy/Mental Status: Reports: Alert, Normal Affect *Q Meaningful Use (DIS) - VTE *Q VTE Pharmacological Contraindications *Q: Patient Scheduled Surgery
[2019-11-24] MEDS: Warfarin 5 MG Tab PO SCH (12:09)
--- NOTE | 2019-12-19 18:05 | OR ---
DATE OF PROCEDURE: 11/22/2019 SURGEON: Irvin Zelaya MD PREOPERATIVE DIAGNOSES: 1. Displaced left distal fibula fracture. 2. Rupture of deltoid ligament. 3. Subluxation of left ankle. POSTOPERATIVE DIAGNOSES: 1. Displaced left distal fibula fracture. 2. Rupture of deltoid ligament. 3. Subluxation of left ankle. PROCEDURES: 1. Open reduction and internal fixation of left distal fibula. 2. Repair of deltoid ligament. 3. Fixation of syndesmosis. ANESTHESIA: General. INDICATIONS: Mr. Sarah is a 74-year-old gentleman who sustained a fall resulting in injury to his left ankle. He presents to the emergency room with displaced fracture of the distal fibula and lateral translation of the talus in the mortise. He is on anticoagulation therapy and is admitted through the emergency room in order to reverse the Coumadin and allow surgical fixation. He was taken to the operating room the following day. Risks, benefits, and potential complications of the procedure were discussed. DESCRIPTION OF PROCEDURE: After adequate anesthesia was obtained, the patient was placed supine with a bump under the left hip. Left hip was prepped and draped in a sterile fashion with a tourniquet about the upper thigh. The leg was exsanguinated and tourniquet inflated to 300 mmHg. A longitudinal incision was made over the lateral aspect of the ankle, carried down through the subcutaneous tissues to the fibula. Fibular fracture was identified. This was a long oblique fracture. The fracture was reduced and held with bone-holding clamps. Compression screw was placed from anterior to posterior, over-drilling the anterior cortex. Lateral plate was then secured with 3.5 cortical screws proximally and cancellous screw distally. Good fixation was obtained with all screws. Final position was confirmed using image intensifier. This revealed persistent lateral displacement of the talus in the mortise. Attention was then turned to the medial aspect of the ankle, where an incision was made over the medial malleolus. This was carried down through the subcutaneous tissues. The ruptured deltoid ligament was identified. Portion of this was flipped into the joint, which was cleared. Ankle was then held in a reduced position, and the deltoid ligament was repaired using 0 Ethibond. Examination under fluoroscopy revealed that the talus was better centered in the mortise, just a slight persistent lateral displacement and under fluoroscopic imaging, lateral stress on the ankle revealed some persistent motion at the syndesmosis. A decision was made to proceed with fixation of the syndesmosis using Arthrex TightRope device. Returning to the lateral side, the drill for the TightRope device was placed through one of the screw holes in the fibular plate and position across the syndesmosis confirmed. This was then drilled through the fibula and through the tibia. The long needle was then placed through the drill hole and exited through the skin medially. This was used to deliver the TightRope button onto the cortex of the tibia. Once this was deployed, the ankle was held in a reduced position and tension was placed on the sutures cinching the lateral button down against the fibular plate. This was then tied and cut. Final position was confirmed using fluoroscopy. Both wounds were then irrigated and closed with 0 Vicryl, in the deep layer 2- 0 Vicryl, and a running 3-0 Monocryl. Steri-Strips were applied. Sterile dressing was then placed. The wound was infiltrated with Marcaine and a well-padded AO plaster splint was applied with the foot in neutral position. The patient was taken from the operating room in a stable condition. Irvin Zelaya MD /[id number]
== END 2019-11-24 13:15 | DRG 493 ==
LOC: JP.ED 15:48 → JP.MS 18:00
PROVIDERS: ADMIT Internal Medicine; ATTEND Internal Medicine
PROC: 3E0234Z Introduction of Serum, Toxoid and Vaccine into Muscle, Percutaneous Approach (ICD-10-PCS; 2019-11-21)
PROC: 0QSK04Z Reposition Left Fibula with Internal Fixation Device, Open Approach (ICD-10-PCS; principal; 2019-11-22)
PROC: 0MQR0ZZ Repair Left Ankle Bursa and Ligament, Open Approach (ICD-10-PCS; 2019-11-22)
PROC: 0SSG0ZZ Reposition Left Ankle Joint, Open Approach (ICD-10-PCS; 2019-11-22)
DX: S82.832A Other fracture of upper and lower end of left fibula, initial encounter for closed fracture (principal); D68.51 Activated protein C resistance; E11.9 Type 2 diabetes mellitus without complications; H52.00 Hypermetropia, unspecified eye; H52.4 Presbyopia; Z86.718 Personal history of other venous thrombosis and embolism; H91.90 Unspecified hearing loss, unspecified ear; H54.7 Unspecified visual loss; E78.00 Pure hypercholesterolemia, unspecified; M19.90 Unspecified osteoarthritis, unspecified site; J44.9 Chronic obstructive pulmonary disease, unspecified; G47.30 Sleep apnea, unspecified; M46.92 Unspecified inflammatory spondylopathy, cervical region; R33.8 Other retention of urine; Z96.649 Presence of unspecified artificial hip joint; C61 Malignant neoplasm of prostate; G89.29 Other chronic pain; Z92.3 Personal history of irradiation; H26.9 Unspecified cataract; W00.0XXA Fall on same level due to ice and snow, initial encounter; I10 Essential (primary) hypertension; M25.561 Pain in right knee; F32.9 Major depressive disorder, single episode, unspecified; N42.9 Disorder of prostate, unspecified; E66.9 Obesity, unspecified; E53.8 Deficiency of other specified B group vitamins; Z90.49 Acquired absence of other specified parts of digestive tract; Z98.84 Bariatric surgery status; Z98.890 Other specified postprocedural states; Z99.81 Dependence on supplemental oxygen; Y92.009 Unspecified place in unspecified non-institutional (private) residence as the place of occurrence of the external cause; Z79.01 Long term (current) use of anticoagulants; Z79.4 Long term (current) use of insulin; Z79.899 Other long term (current) drug therapy; Y93.89 Activity, other specified; Z91.14 Patient's other noncompliance with medication regimen; Z68.32 Body mass index [BMI] 32.0-32.9, adult; Z23 Encounter for immunization
CPT/HCPCS: 36415; 51702; 73610-26-LT; 73610-LT; 76000; 80048; 82962; 83036; 85025; 85027; 85610; 90732; 97110-GP; 97162-GP; 97530-GP; 99283; 99284-25; A9270-GY; C1713; C1776; G0009; J0690; J1100; J1650; J1815; J1815-GY; J2405; J2704; J2710; J3010; J3430; J3490; J7050; J7120

== ENCOUNTER 2019-12-23 13:40 | Emergency (ER) | payer MEDICARE ==
[2019-12-23 14:10] VITALS: BP 110/63; PULSE 70
--- NOTE | 2019-12-23 14:26 | EDM.PDOC ---
ED HPI GENERAL MEDICAL PROBLEM - General Chief Complaint: Chest Pain Stated Complaint: chest pain Time Seen by Provider: 12/23/19 14:10 Source of Information: Reports: Patient, RN Notes Reviewed History Limitations: Reports: No Limitations - History of Present Illness INITIAL COMMENTS - FREE TEXT/NARRATIVE: 74-year-old male sent in with brief episodes of chest pain x2 this morning. Both episodes were just to the left of the sternum in the upper chest and lasted about 5 seconds. No shortness of breath, no radiation of pain. Onset: Sudden Duration: Other (Symptoms only lasted 5 to 10 seconds) - Related Data Allergies Allergy/AdvReac Type Severity Reaction Status Date / Time No Known Allergies Allergy Verified 12/23/19 14:17 Home Meds: Home Meds Multivitamin with Minerals [Multiple Vitamin] 1 each PO DAILY 05/31/14 [History] Warfarin [Coumadin] 5 mg PO DAILY 05/31/14 [History] Ferrous Sulfate 324 mg PO DAILY 09/09/14 [History] Furosemide [Lasix] 20 mg PO DAILY 09/09/14 [History] Cyanocobalamin (Vitamin B-12) [B-12] 1,000 mcg PO DAILY 03/23/15 [History] atorvaSTATin [Lipitor] 10 mg PO BEDTIME 03/23/15 [History] Calcium Carbonate/Vitamin D3 [Calcium 250+D] 3 tab PO DAILY 11/17/17 [History] Omeprazole 40 mg PO DAILY 11/17/17 [History] SitaGLIPtin [Januvia] 100 mg PO DAILY 11/17/17 [History] Triamcinolone Acetonide [Kenalog 0.1% Crm] 1 applic TOP TID 11/17/17 [History] Gabapentin [Neurontin] 300 mg PO BID 08/19/18 [History] Phytonadione [Vitamin K] 100 mcg PO DAILY 08/19/18 [History] Venlafaxine HCl [Venlafaxine ER] 150 mg PO DAILY 11/22/19 [History] metFORMIN HCl [Metformin HCl ER] 1,000 mg PO BIDMEALS 11/22/19 [History] Acetaminophen [Tylenol] 650 mg PO Q6H PRN #200 tablet 11/24/19 [Rx] Docusate Sodium/Sennosides [Senna Plus] 1 tab PO BID PRN #30 tablet 11/24/19 [Rx ] Insulin Glargine,Hum.Rec.Anlog [Stevenuchelo Solostar] 25 unit SQ DAILY #1 pen [Rx] Tamsulosin [Flomax] 0.4 mg PO BEDTIME #15 cap.er 11/24/19 [Rx] oxyCODONE 5 mg PO Q4H PRN #40 tablet 11/24/19 [Rx] Gabapentin [Neurontin] 600 mg PO QAM 12/08/19 [History] Past Medical History HEENT History: Reports: Cataract, Hard of Hearing, Impaired Vision, Other (See Below) Other HEENT History: tear film insufficiency. hyperopia with astigmatism and presbyopia Cardiovascular History: Reports: Arrhythmia, Blood Clots/VTE/DVT, High Cholesterol, Other (See Below) Other Cardiovascular History: edema. orthostatic hypotension. postphlebitic edema Respiratory History: Reports: Bronchitis, Recurrent, COPD, Sleep Apnea Gastrointestinal History: Reports: Hemorrhoids, Other (See Below) Other Gastrointestinal History: RNY 2010. umbilical hernia Genitourinary History: Reports: Prostate Disorder Musculoskeletal History: Reports: Fracture, Osteoarthritis Other Musculoskeletal History: spondylosis cervical spine. degerative arthritis of cervical spine. chronic pain of right knee. s/p ORIF L fib. Psychiatric History: Reports: Aggressive/Hostile Behaviors, Depression, Other ( See Below) Other Psychiatric History: Registered sex offender Endocrine/Metabolic History: Reports: Diabetes, Type II, Obesity/BMI 30+ Hematologic History: Reports: B12 Deficiency, Other (See Below) Other Hematologic History: homozygous factor v leiden mutation Oncologic (Cancer) History: Reports: Prostate Other Oncologic History: had radiation therapy Dermatologic History: Reports: Decubitus Ulcer, Other (See Below) Other Dermatologic History: ulcer sore inside left buttocks comes and goes - Infectious Disease History Infectious Disease History: Reports: Chicken Pox, Measles, Mumps, Pertussis ( Whooping Cough), Shingles - Past Surgical History Head Surgeries/Procedures: Reports: None GI Surgical History: Reports: Appendectomy, Bariatric Procedure, Cholecystectomy , Hernia Repair/Other Male Surgical History: Reports: Prostate Biopsy Musculoskeletal Surgical History: Reports: Hip Replacement Social & Family History - Family History Family Medical History: Noncontributory - Tobacco Use Smoking Status *Q: Never Smoker - Caffeine Use Caffeine Use: Reports: Coffee Other Caffeine Use: 2. cups per day Caffeine Use Comment: 3 cups of coffee per day; occassional 7up or pepsi ED ROS GENERAL - Review of Systems Review Of Systems: See Below Constitutional: Denies: Fever, Chills Respiratory: Denies: Shortness of Breath Cardiovascular: Denies: Palpitations GI/Abdominal: Denies: Nausea, Vomiting Skin: Denies: Diaphoresis ED EXAM, GENERAL - Physical Exam Exam: See Below Exam Limited By: No Limitations General Appearance: Alert, No Apparent Distress Head: Atraumatic Neck: Supple, Non-Tender Respiratory/Chest: Lungs Clear, Other (Patient does have some soreness to palpation just to the left of the sternum on the upper chest, no rash or bruising) Cardiovascular: Regular Rate, Rhythm, No Murmur GI/Abdominal: Soft, Non-Tender Neurological: Alert, Oriented Psychiatric: Normal Affect, Normal Mood Skin Exam: Warm, Dry EKG INTERPRETATION Rhythm: NSR Rate (Beats/Min): 58 QRS: Normal ST-T: Normal Comparison: No Change (2017) Course - Vital Signs Last Recorded V/S: Last Vital Signs Temp 96.8 F L 12/23/19 14:09 Pulse 70 12/23/19 14:09 Resp 14 12/23/19 14:09 BP 110/63 12/23/19 14:09 Pulse Ox 96 12/23/19 14:09 - Orders/Labs/Meds Orders: Active Orders 24 hr Category Date Time Status EKG Documentation Completion [RC] ASDIRECTED Care 12/23/19 13:58 Active EKG 12 Lead [EK] Routine Ther 12/23/19 13:58 Ordered Labs: Laboratory Tests 12/23/19 Range/Units 14:16 Troponin I < 0.017 (0.000-0.056) ng/mL - Re-Assessments/Exams Free Text/Narrative Re-Assessment/Exam: 12/23/19 15:21 EKG is normal and looks identical to 2 years ago, troponin was obtained and is negative. Patient had no symptoms while in the emergency room. Pain that only last 5 to 7 seconds is very atypical and unlikely due to cardiac, likely a chest muscle spasm. Departure - Departure Time of Disposition: 15:44 Disposition: DC/Tfer to Detention [facility], [place] [facility] Clinical Impression: Acute chest wall pain - Discharge Information Instructions: Nonspecific Chest Pain, Adult, [id number] Referrals: PCP,None [Primary Care Provider] - Forms: ED Department Discharge Care Plan Goals: Heating pad, anti-inflammatories or Tylenol may be beneficial if pain is recurring. Return for evaluation if pain is persistent for more than 15 to 30 minutes. Also reevaluate if short of breath or diaphoretic. Sepsis Event Note - Evaluation Sepsis Screening Result: No Definite Risk - Focused Exam Vital Signs: Vital Signs Temp Pulse Resp BP Pulse Ox 12/23/19 14:09 96.8 F L 70 14 110/63 96 Date Exam was Performed: 12/23/19 Time Exam was Performed: 17:24 - My Orders Last 24 Hours: My Active Orders 12/23/19 13:58 EKG Documentation Completion [RC] ASDIRECTED EKG 12 Lead [EK] Routine - Assessment/Plan Last 24 Hours: My Active Orders 12/23/19 13:58 EKG Documentation Completion [RC] ASDIRECTED EKG 12 Lead [EK] Routine
== END 2019-12-23 15:45 ==
LOC: JP.ED 13:40
DX: R07.89 Other chest pain (principal); E78.00 Pure hypercholesterolemia, unspecified; Z86.718 Personal history of other venous thrombosis and embolism; J44.9 Chronic obstructive pulmonary disease, unspecified; M19.90 Unspecified osteoarthritis, unspecified site; F32.9 Major depressive disorder, single episode, unspecified; E11.9 Type 2 diabetes mellitus without complications; E66.9 Obesity, unspecified; Z68.34 Body mass index [BMI] 34.0-34.9, adult; Z79.01 Long term (current) use of anticoagulants; Z79.899 Other long term (current) drug therapy; Z79.4 Long term (current) use of insulin
CPT/HCPCS: 36415; 84484; 93005; 93010; 99283; 99285-25

== ENCOUNTER 2020-01-21 13:44 | Emergency (ER) | payer MEDICARE ==
[2020-01-21 14:03] VITALS: BP 149/127; PULSE 99
--- NOTE | 2020-01-21 14:18 | EDM.PDOC ---
ED HPI GENERAL MEDICAL PROBLEM - General Chief Complaint: Lower Extremity Injury/Pain Stated Complaint: INFECTION IN LEFT FOOT/ POST SURGERY Time Seen by Provider: 01/21/20 14:05 Source of Information: Reports: Patient, Old Records History Limitations: Reports: No Limitations - History of Present Illness INITIAL COMMENTS - FREE TEXT/NARRATIVE: 74 yo male had surgery on his L ankle area by Dr. Zelaya over a month ago. Today he bumped the leg and knocked off a small scab on the inside of that ankle and some clear fluid came out. He thought this was a sign of infection so came in. There has not been redness, increased warmth or pussy drainage. Onset: Today Onset Date: 01/21/20 Duration: Minutes: Location: Reports: Lower Extremity, Left Quality: Reports: Other (no new pain) Severity: Mild (minimal drainage) Improves with: Reports: Other (stopped oozing before arrival. ) Worsens with: Reports: Other (See HPI) Context: Reports: Other (surgery over a month ago) Associated Symptoms: Denies: Fever/Chills Treatments [employer]: Reports: Other (see below) (none) - Related Data Allergies Allergy/AdvReac Type Severity Reaction Status Date / Time No Known Allergies Allergy Verified 01/21/20 14:07 Home Meds: Home Meds Multivitamin with Minerals [Multiple Vitamin] 1 each PO DAILY 05/31/14 [History] Warfarin [Coumadin] 5 mg PO DAILY 05/31/14 [History] Cyanocobalamin (Vitamin B-12) [B-12] 1,000 mcg PO DAILY 03/23/15 [History] atorvaSTATin [Lipitor] 10 mg PO BEDTIME 03/23/15 [History] Calcium Carbonate/Vitamin D3 [Calcium 250+D] 3 tab PO DAILY 11/17/17 [History] Omeprazole 40 mg PO DAILY 11/17/17 [History] SitaGLIPtin [Januvia] 100 mg PO DAILY 11/17/17 [History] Triamcinolone Acetonide [Kenalog 0.1% Crm] 1 applic TOP TID 11/17/17 [History] Gabapentin [Neurontin] 300 mg PO BID 08/19/18 [History] Phytonadione [Vitamin K] 100 mcg PO DAILY 08/19/18 [History] Venlafaxine HCl [Venlafaxine ER] 150 mg PO DAILY 11/22/19 [History] metFORMIN HCl [Metformin HCl ER] 1,000 mg PO BIDMEALS 11/22/19 [History] Acetaminophen [Tylenol] 650 mg PO Q6H PRN #200 tablet 11/24/19 [Rx] Docusate Sodium/Sennosides [Senna Plus] 1 tab PO BID PRN #30 tablet 11/24/19 [Rx ] Insulin Glargine,Hum.Rec.Anlog [Toujeo Solostar] 25 unit SQ DAILY #1 pen [Rx] Gabapentin [Neurontin] 600 mg PO QAM 12/08/19 [History] Lactobacillus Rhamnosus GG [Culturelle] 2 cap PO DAILY 12/29/19 [History] Past Medical History HEENT History: Reports: Cataract, Hard of Hearing, Impaired Vision, Other (See Below) Other HEENT History: tear film insufficiency. hyperopia with astigmatism and presbyopia Cardiovascular History: Reports: Arrhythmia, Blood Clots/VTE/DVT, High Cholesterol, Other (See Below) Other Cardiovascular History: edema. orthostatic hypotension. postphlebitic edema Respiratory History: Reports: Bronchitis, Recurrent, COPD, Sleep Apnea Gastrointestinal History: Reports: Hemorrhoids, Other (See Below) Other Gastrointestinal History: RNY 2010. umbilical hernia Genitourinary History: Reports: Prostate Disorder Musculoskeletal History: Reports: Fracture, Osteoarthritis Other Musculoskeletal History: spondylosis cervical spine. degerative arthritis of cervical spine. chronic pain of right knee Psychiatric History: Reports: Aggressive/Hostile Behaviors, Depression, Other ( See Below) Other Psychiatric History: Registered sex offender Endocrine/Metabolic History: Reports: Diabetes, Type II, Obesity/BMI 30+ Hematologic History: Reports: B12 Deficiency, Other (See Below) Other Hematologic History: homozygous factor v leiden mutation Oncologic (Cancer) History: Reports: Prostate Other Oncologic History: had radiation therapy Dermatologic History: Reports: Decubitus Ulcer, Other (See Below) Other Dermatologic History: ulcer sore inside left buttocks comes and goes - Infectious Disease History Infectious Disease History: Reports: Chicken Pox, Measles, Mumps - Past Surgical History Head Surgeries/Procedures: Reports: None GI Surgical History: Reports: Appendectomy, Bariatric Procedure, Cholecystectomy , Hernia Repair/Other Male Surgical History: Reports: Prostate Biopsy Musculoskeletal Surgical History: Reports: Hip Replacement, ORIF Other Musculoskeletal Surgeries/Procedures:: left fib ORIF 11/22/19. left hip Social & Family History - Family History Family Medical History: Noncontributory - Caffeine Use Caffeine Use: Reports: Coffee Other Caffeine Use: 2. cups per day Caffeine Use Comment: 3 cups of coffee per day; occassional 7up or pepsi Review of Systems - Review of Systems Review Of Systems: See Below Cardiovascular: Reports: Edema (both LE's below the knees.) Skin: Reports: Wound (nearly healed surgical wound L medial ankle). Denies: Erythema Neurological: Reports: No Symptoms ED EXAM, GENERAL - Physical Exam Exam: See Below Exam Limited By: No Limitations General Appearance: Alert, WD/WN, No Apparent Distress Extremities: Non-Tender, Pedal Edema (pitting edema of both LE's below the knees. ), Other (small scabs medial L ankle without any purulent discharge. ). No: No Pedal Edema, Increased Warmth, Redness Neurological: Alert, Oriented, CN II-XII Intact, Normal Cognition, No Motor/ Sensory Deficits Psychiatric: Normal Affect, Normal Mood Skin Exam: Warm, Dry, Normal Color, No Rash, Wound/Incision (nearly healed surgical wounds of LLE) Course - Vital Signs Last Recorded V/S: Last Vital Signs Temp 36.2 C 01/21/20 14:01 Pulse 99 01/21/20 14:01 Resp 16 01/21/20 14:01 BP 149/127 H 01/21/20 14:01 Pulse Ox 96 01/21/20 14:01 Departure - Departure Time of Disposition: 14:18 Disposition: Home, Self-Care 01 Condition: Good Clinical Impression: Visit for wound check - Discharge Information *PRESCRIPTION DRUG MONITORING PROGRAM REVIEWED*: Not Applicable *COPY OF PRESCRIPTION DRUG MONITORING REPORT IN PATIENT RADHA: Not Applicable Referrals: Davis Flores MD [Primary Care Provider] - Additional Instructions: Continue current cares. Recheck as needed. Sepsis Event Note - Focused Exam Vital Signs: Vital Signs Temp Pulse Resp BP Pulse Ox 01/21/20 14:01 36.2 C 99 16 149/127 H 96 Date Exam was Performed: 01/21/20 Time Exam was Performed: 14:13
== END 2020-01-21 14:28 | disposition home or self-care (01) ==
LOC: JP.ED 13:44
DX: Z48.01 Encounter for change or removal of surgical wound dressing (principal); E78.00 Pure hypercholesterolemia, unspecified; F32.9 Major depressive disorder, single episode, unspecified; E11.9 Type 2 diabetes mellitus without complications; E66.9 Obesity, unspecified; Z79.01 Long term (current) use of anticoagulants; Z79.4 Long term (current) use of insulin; Z79.899 Other long term (current) drug therapy; Z68.34 Body mass index [BMI] 34.0-34.9, adult
CPT/HCPCS: 99282; 99283

== ENCOUNTER 2020-06-23 17:19 | Emergency (ER) | payer MEDICARE ==
[2020-06-23 17:24] VITALS: BP 146/91; PULSE 71
[2020-06-23] MEDS ORDERED: Doxycycline 100 MG Cap PO ONE (17:49)
--- NOTE | 2020-06-23 18:06 | EDM.PDOC ---
ED HPI GENERAL MEDICAL PROBLEM - General Chief Complaint: Skin Complaint Stated Complaint: MED[facility] Time Seen by Provider: 06/23/20 17:30 Source of Information: Reports: Patient, EMS, RN, RN Notes Reviewed History Limitations: Reports: No Limitations - History of Present Illness INITIAL COMMENTS - FREE TEXT/NARRATIVE: Pt States 3 days ago he started with a small wound on his left baker and ankle. Today the wound is 'redder and oozing' compared to yesterday. ABX tx started 06/21 (Keflex) and nurse caring for pt at [facility] feels there is no improvement. The provider sanitation worker cleaning equipment was notified and told the patient needed to be seen. Arrangements for transport via EMS to ER were made Pt is without mentation changes, no fever, no pain at the wound site. Pt is a diabetic and has vascular issues. Onset: Sudden Onset Date: 06/21/20 Onset Time: 08:00 Duration: Hour(s): Location: Reports: Lower Extremity, Left (baker/ankle) Quality: Reports: Other (no pain) Severity: Moderate Improves with: Reports: None (abx started 06/21) Worsens with: Reports: None Context: Reports: Other (does not recall trauma, skin infection) Associated Symptoms: Reports: No Other Symptoms. Denies: Confusion, Fever/Chills, Rash Treatments BURSAR: Reports: Other (see below) (abx tx started) - Related Data Allergies Allergy/AdvReac Type Severity Reaction Status Date / Time No Known Allergies Allergy Verified 06/23/20 17:43 Home Meds: Home Meds Multivitamin with Minerals [Multiple Vitamin] 1 each PO DAILY 05/31/14 [History] Warfarin [Coumadin] 5 mg PO DAILY 05/31/14 [History] Cyanocobalamin (Vitamin B-12) [B-12] 1,000 mcg PO DAILY 03/23/15 [History] atorvaSTATin [Lipitor] 10 mg PO BEDTIME 03/23/15 [History] Calcium Carbonate/Vitamin D3 [Calcium 250+D] 3 tab PO DAILY 11/17/17 [History] Omeprazole 40 mg PO DAILY 11/17/17 [History] SitaGLIPtin [Januvia] 100 mg PO DAILY 11/17/17 [History] Triamcinolone Acetonide [Kenalog 0.1% Crm] 1 applic TOP TID 11/17/17 [History] Gabapentin [Neurontin] 300 mg PO TID 08/19/18 [History] Phytonadione [Vitamin K] 100 mcg PO DAILY 08/19/18 [History] Venlafaxine HCl [Venlafaxine ER] 150 mg PO DAILY 11/22/19 [History] metFORMIN HCl [Metformin HCl ER] 1,000 mg PO BIDMEALS 11/22/19 [History] Acetaminophen [Tylenol] 650 mg PO Q6H PRN #200 tablet 11/24/19 [Rx] Docusate Sodium/Sennosides [Senna Plus] 1 tab PO BID PRN #30 tablet 11/24/19 [Rx] Insulin Glargine,Hum.Rec.Anlog [Toujeo Solostar] 25 unit SQ DAILY #1 pen 11/24/19 [Rx] Gabapentin [Neurontin] 600 mg PO QAM 12/08/19 [History] Lactobacillus Rhamnosus GG [Culturelle] 2 cap PO DAILY 12/29/19 [History] Fludrocortisone [Fludrocortisone Acetate] 0.1 mg PO DAILY 06/23/20 [History] Furosemide 20 mg PO DAILY 06/23/20 [History] Warfarin [Coumadin] 7.5 mg PO ASDIRECTED 06/23/20 [History] cephALEXin [Cephalexin] 500 mg PO QID 06/23/20 [History] Past Medical History HEENT History: Reports: Cataract, Hard of Hearing, Impaired Vision, Other (See Below) Other HEENT History: tear film insufficiency. hyperopia with astigmatism and presbyopia Cardiovascular History: Reports: Arrhythmia, Blood Clots/VTE/DVT, High Cholesterol, Other (See Below) Other Cardiovascular History: edema. orthostatic hypotension. postphlebitic edema Respiratory History: Reports: Bronchitis, Recurrent, COPD, Sleep Apnea Gastrointestinal History: Reports: Hemorrhoids, Other (See Below) Other Gastrointestinal History: RNY 2010. umbilical hernia Genitourinary History: Reports: Prostate Disorder Musculoskeletal History: Reports: Fracture, Osteoarthritis Other Musculoskeletal History: spondylosis cervical spine. degerative arthritis of cervical spine. chronic pain of right knee Psychiatric History: Reports: Aggressive/Hostile Behaviors, Depression, Other (See Below) Other Psychiatric History: Registered sex offender Endocrine/Metabolic History: Reports: Diabetes, Type II, Obesity/BMI 30+ Hematologic History: Reports: B12 Deficiency, Other (See Below) Other Hematologic History: homozygous factor v leiden mutation Oncologic (Cancer) History: Reports: Prostate Other Oncologic History: had radiation therapy Dermatologic History: Reports: Decubitus Ulcer, Other (See Below) Other Dermatologic History: ulcer sore inside left buttocks comes and goes - Infectious Disease History Infectious Disease History: Reports: Chicken Pox, Measles, Mumps - Past Surgical History Head Surgeries/Procedures: Reports: None GI Surgical History: Reports: Appendectomy, Bariatric Procedure, Cholecystectomy, Hernia Repair/Other Male Surgical History: Reports: Prostate Biopsy Musculoskeletal Surgical History: Reports: Hip Replacement, ORIF Other Musculoskeletal Surgeries/Procedures:: left fib ORIF 11/22/19. left hip Social & Family History - Family History Family Medical History: Noncontributory - Tobacco Use Smoking Status *Q: Former Smoker Used Tobacco, but Quit: Yes Month/Year Tobacco Last Used: 26 years ago - Caffeine Use Caffeine Use: Reports: Coffee Other Caffeine Use: 2. cups per day Caffeine Use Comment: 3 cups of coffee per day; occassional 7up or pepsi - Recreational Drug Use Recreational Drug Use: No ED ROS GENERAL - Review of Systems Review Of Systems: Comprehensive ROS is negative, except as noted in HPI. ED EXAM, SKIN/RASH Exam: See Below Exam Limited By: No Limitations General Appearance: Alert, WD/WN, No Apparent Distress Respiratory/Chest: No Respiratory Distress, Lungs Clear, Normal Breath Sounds, No Accessory Muscle Use Cardiovascular: Normal Peripheral Pulses, Regular Rate, Rhythm, No Edema Peripheral Pulses: 2+: Popliteal (L), Posterior Tibial (L), Dorsalis Pedis (L) Extremities: Normal Inspection, Normal Range of Motion, Non-Tender, Normal Capillary Refill, Pedal Edema, Redness (11x12 cm area covering left baker) Neurological: Alert, Oriented, CN II-XII Intact, Normal Cognition Psychiatric: Normal Affect, Normal Mood Skin: Warm, Dry, Normal Color, Erythema, Wound/Incision Location, Skin: Lower Extremity, Left Characteristics: Erythematous Associated features: Inflammation Lymphatic: No Adenopathy Course - Vital Signs Last Recorded V/S: Last Vital Signs Temp 36.4 C 06/23/20 17:28 Pulse 71 06/23/20 17:28 Resp 16 06/23/20 17:28 BP 146/91 H 06/23/20 17:28 Pulse Ox 94 L 06/23/20 17:28 - Orders/Labs/Meds Orders: Active Orders 24 hr Category Date Time Status Consult to Wound Care Services [CONS] Routine Cons 06/23/20 18:25 Active CULTURE WOUND + SMEAR [RM] Stat Lab 06/23/20 17:39 Results Stopped Keflex - Wound Cultured - Started Doxycycline Meds: Medications Discontinued Medications Generic Name Dose Route Start Last Admin Trade Name Paulino PRN Reason Stop Dose Admin Doxycycline Hyclate 100 mg 06/23/20 17:49 06/23/20 18:10 Vibramycin PO 06/23/20 17:50 100 mg ONETIME ONE Administration - Re-Assessments/Exams Free Text/Narrative Re-Assessment/Exam: 06/23/20 18:17 ED Nurse notified [facility] of changes in medication and waiting wound culture. Wound consult to DR Hodge for next week. Departure - Departure Time of Disposition: 18:33 Disposition: DC/Tfer to [facility] 61 Condition: Fair Clinical Impression: Cellulitis - Discharge Information *PRESCRIPTION DRUG MONITORING PROGRAM REVIEWED*: Not Applicable *COPY OF PRESCRIPTION DRUG MONITORING REPORT IN PATIENT RADHA: Not Applicable Instructions: Cellulitis, Adult, [id number] Referrals: PCP,None [Primary Care Provider] - Forms: ED Department Discharge Additional Instructions: Wet to dry dressing changes BID until seen by Dr. Jorge for wound care and further evaluation Care Plan Goals: Start doxycycline and continue until wound culture results are known. Further evaluation at that time Wet to dry dressing twice a day until seen by Dr Hodge Sepsis Event Note (ED) - Evaluation Sepsis Screening Result: No Definite Risk - Focused Exam Vital Signs: Vital Signs Temp Pulse Resp BP Pulse Ox 06/23/20 17:28 36.4 C 71 16 146/91 H 94 L 06/23/20 17:23 36.4 C 71 16 146/91 H 94 L - My Orders Last 24 Hours: My Active Orders 06/23/20 17:39 CULTURE WOUND + SMEAR [RM] Stat 06/23/20 18:25 Consult to Wound Care Services [CONS] Routine - Assessment/Plan Last 24 Hours: My Active Orders 06/23/20 17:39 CULTURE WOUND + SMEAR [RM] Stat 06/23/20 18:25 Consult to Wound Care Services [CONS] Routine
== END 2020-06-23 18:36 ==
LOC: JP.ED 17:19
DX: L03.116 Cellulitis of left lower limb (principal); E78.00 Pure hypercholesterolemia, unspecified; Z86.718 Personal history of other venous thrombosis and embolism; F32.9 Major depressive disorder, single episode, unspecified; E11.9 Type 2 diabetes mellitus without complications; E66.9 Obesity, unspecified; Z68.36 Body mass index [BMI] 36.0-36.9, adult; Z79.01 Long term (current) use of anticoagulants; Z79.4 Long term (current) use of insulin; Z79.899 Other long term (current) drug therapy; Z87.891 Personal history of nicotine dependence
CPT/HCPCS: 87070; 87205; 99284; A9270; 87077; 87186; 99283

== ENCOUNTER 2020-06-24 21:03 | Emergency (ER) | payer MEDICARE ==
[2020-06-24 21:21] VITALS: BP 135/83; PULSE 80
[2020-06-24] MEDS: Sodium Chloride 0.9% 10 ML Syringe FLUSH PRN ×2 (22:09→22:46)
--- NOTE | 2020-06-24 22:19 | EDM.PDOC ---
ED HPI GENERAL MEDICAL PROBLEM - General Chief Complaint: Wound Recheck Stated Complaint: CELLULITIS Time Seen by Provider: 06/24/20 22:15 Source of Information: Reports: Patient History Limitations: Reports: No Limitations - History of Present Illness INITIAL COMMENTS - FREE TEXT/NARRATIVE: pt is running a low grade temp tonight and the [facility]cc was concerne. He has been seen twice in the last few days. Cultures are pending of drainage from the wound. He is presently on doxycyline and it would appear the culture is growing staph. Onset: Gradual Duration: Day(s): Location: Reports: Lower Extremity, Left Associated Symptoms: Reports: No Other Symptoms - Related Data Allergies Allergy/AdvReac Type Severity Reaction Status Date / Time No Known Allergies Allergy Verified 06/24/20 21:12 Home Meds: Home Meds Multivitamin with Minerals [Multiple Vitamin] 1 each PO DAILY 05/31/14 [History] Warfarin [Coumadin] 5 mg PO DAILY 05/31/14 [History] Cyanocobalamin (Vitamin B-12) [B-12] 1,000 mcg PO DAILY 03/23/15 [History] atorvaSTATin [Lipitor] 10 mg PO BEDTIME 03/23/15 [History] Calcium Carbonate/Vitamin D3 [Calcium 250+D] 3 tab PO DAILY 11/17/17 [History] Omeprazole 40 mg PO DAILY 11/17/17 [History] SitaGLIPtin [Januvia] 100 mg PO DAILY 11/17/17 [History] Triamcinolone Acetonide [Kenalog 0.1% Crm] 1 applic TOP TID 11/17/17 [History] Gabapentin [Neurontin] 300 mg PO TID 08/19/18 [History] Phytonadione [Vitamin K] 100 mcg PO DAILY 08/19/18 [History] Venlafaxine HCl [Venlafaxine ER] 150 mg PO DAILY 11/22/19 [History] metFORMIN HCl [Metformin HCl ER] 1,000 mg PO BIDMEALS 11/22/19 [History] Acetaminophen [Tylenol] 650 mg PO Q6H PRN #200 tablet 11/24/19 [Rx] Docusate Sodium/Sennosides [Senna Plus] 1 tab PO BID PRN #30 tablet 11/24/19 [Rx] Insulin Glargine,Hum.Rec.Anlog [Tounayelyo Solostar] 25 unit SQ DAILY #1 pen 11/24/19 [Rx] Gabapentin [Neurontin] 600 mg PO QAM 12/08/19 [History] Lactobacillus Rhamnosus GG [Culturelle] 2 cap PO DAILY 12/29/19 [History] Fludrocortisone [Fludrocortisone Acetate] 0.1 mg PO DAILY 06/23/20 [History] Furosemide 20 mg PO DAILY 06/23/20 [History] Warfarin [Coumadin] 7.5 mg PO ASDIRECTED 06/23/20 [History] cephALEXin [Cephalexin] 500 mg PO QID 06/23/20 [History] Past Medical History HEENT History: Reports: Cataract, Hard of Hearing, Impaired Vision, Other (See Below) Other HEENT History: tear film insufficiency. hyperopia with astigmatism and presbyopia Cardiovascular History: Reports: Arrhythmia, Blood Clots/VTE/DVT, High Cholesterol, Other (See Below) Other Cardiovascular History: edema. orthostatic hypotension. postphlebitic edema Respiratory History: Reports: Bronchitis, Recurrent, COPD, Sleep Apnea Gastrointestinal History: Reports: Hemorrhoids, Other (See Below) Other Gastrointestinal History: RNY 2010. umbilical hernia Genitourinary History: Reports: Prostate Disorder Musculoskeletal History: Reports: Fracture, Osteoarthritis Other Musculoskeletal History: spondylosis cervical spine. degerative arthritis of cervical spine. chronic pain of right knee Psychiatric History: Reports: Aggressive/Hostile Behaviors, Depression, Other (See Below) Other Psychiatric History: Registered sex offender Endocrine/Metabolic History: Reports: Diabetes, Type II, Obesity/BMI 30+ Hematologic History: Reports: B12 Deficiency, Other (See Below) Other Hematologic History: homozygous factor v leiden mutation Oncologic (Cancer) History: Reports: Prostate Other Oncologic History: had radiation therapy Dermatologic History: Reports: Cellulitis, Decubitus Ulcer, Other (See Below) Other Dermatologic History: ulcer sore inside left buttocks comes and goes - Infectious Disease History Infectious Disease History: Reports: Chicken Pox, Measles, Mumps - Past Surgical History Head Surgeries/Procedures: Reports: None GI Surgical History: Reports: Appendectomy, Bariatric Procedure, Cholecystectomy, Hernia Repair/Other Male Surgical History: Reports: Prostate Biopsy Musculoskeletal Surgical History: Reports: Arthroscopic Procedure, Hip Replacement, ORIF, Other (See Below) Other Musculoskeletal Surgeries/Procedures:: left fib ORIF 11/22/19. left hip Social & Family History - Family History Family Medical History: Noncontributory - Tobacco Use Smoking Status *Q: Former Smoker Years of Tobacco use: 20 Used Tobacco, but Quit: Yes Month/Year Tobacco Last Used: 26 years ago - Caffeine Use Caffeine Use: Reports: Coffee Other Caffeine Use: 2. cups per day Caffeine Use Comment: 3 cups of coffee per day; occassional 7up or pepsi - Alcohol Use Days Per Week of Alcohol Use: 7 Number of Drinks Per Day: 2 Total Drinks Per Week: 14 - Recreational Drug Use Recreational Drug Use: No ED ROS GENERAL - Review of Systems Review Of Systems: See Below Constitutional: Reports: Fever, Chills HEENT: Reports: No Symptoms Respiratory: Reports: No Symptoms Cardiovascular: Reports: No Symptoms Endocrine: Reports: No Symptoms GI/Abdominal: Reports: No Symptoms : Reports: No Symptoms Musculoskeletal: Reports: Other ( left lower leg is red and there is some drainage present. ) Skin: Reports: Other ( cellulitis. ) ED EXAM, SKIN/RASH Exam: See Below Text/Narrative:: pt arrived for a recheck on his leg because it is more red and he is now running a low grade temp. Exam Limited By: No Limitations General Appearance: Alert, No Apparent Distress, Anxious Ears: Normal External Exam Nose: Normal Inspection Throat/Mouth: Normal Inspection Extremities: Other (left leg is red in a larger area. there is slight drainage. He has a very low grade temp. He is not having alot of pain in the area. The area was opened slghtly more and cleaned well. It was soaked and dressed. He was given clindomycin 300mg iv and he will be switched to oral clindomycin. ) Neurological: Alert, Oriented, Normal Cognition Course - Vital Signs Last Recorded V/S: Last Vital Signs Temp 36.9 C 06/24/20 21:21 Pulse 80 06/24/20 21:21 Resp 18 06/24/20 21:21 BP 135/83 06/24/20 21:21 Pulse Ox 95 06/24/20 21:21 - Orders/Labs/Meds Labs: Laboratory Tests 06/24/20 06/24/20 Range/Units 21:31 21:31 WBC 7.3 (4.5-11.0) K/uL RBC 4.48 (4.30-5.90) M/uL Hgb 13.5 (12.0-15.0) g/dL Hct 41.2 (40.0-54.0) % MCV 92 (80-98) fL MCH 30 (27-31) pg MCHC 33 (32-36) % Plt Count 203 (150-400) K/uL Neut % (Auto) 74 H (36-66) % Lymph % (Auto) 13 L (24-44) % Kaufman % (Auto) 10 H (2-6) % Eos % (Auto) 3 (2-4) % Baso % (Auto) 1 (0-1) % Sodium 138 L (140-148) mmol/L Potassium 4.1 (3.6-5.2) mmol/L Chloride 100 (100-108) mmol/L Carbon Dioxide 30 (21-32) mmol/L Anion Gap 12.1 (5.0-14.0) mmol/L BUN 13 D (7-18) mg/dL Creatinine 0.9 (0.8-1.3) mg/dL Est Cr Clr Drug Dosing 69.83 mL/min Estimated GFR (MDRD) > 60 (>60) Glucose 183 H (74-106) mg/dL Calcium 8.5 (8.5-10.1) mg/dL Total Bilirubin 0.5 (0.2-1.0) mg/dL AST 20 (15-37) U/L ALT 26 (12-78) U/L Alkaline Phosphatase 79 (46-116) U/L Total Protein 6.9 (6.4-8.2) g/dL Albumin 3.1 L (3.4-5.0) g/dL Globulin 3.8 H (2.3-3.5) g/dL Albumin/Globulin Ratio 0.8 L (1.2-2.2) Meds: Medications Discontinued Medications Generic Name Dose Route Start Last Admin Trade Name Freq PRN Reason Stop Dose Admin Clindamycin Phosphate 300 mg/ 52 mls @ 150 mls/hr 06/24/20 21:50 06/24/20 22:08 Sodium Chloride IV 06/24/20 22:10 150 mls/hr ONETIME ONE Administration Sodium Chloride 10 ml 06/24/20 21:49 06/24/20 22:46 Saline Flush FLUSH 10 ml ASDIRECTED PRN Administration Keep Vein Open - Re-Assessments/Exams Free Text/Narrative Re-Assessment/Exam: 06/24/20 22:31 culture is growing out staph, sensitities are not back. will switch to clindomycin. He will keep the appt with Dr Hodge. Departure - Departure Time of Disposition: 22:55 Disposition: Home, Self-Care 01 Condition: Fair Clinical Impression: Cellulitis - Discharge Information Instructions: Cellulitis, Adult, [id number] Referrals: PCP,None [Primary Care Provider] - Forms: ED Department Discharge Care Plan Goals: soak foot and ankle in soapy solution to promote drainage, dry well, allow to air dry and apply adaptic dressing and guaze, do this bid, stop doxycyline, await the sensitivities on the culture, clindomycin 300mg ti, Pt is to be on probiotic and eat yogurt, keep appt with Dr Hodge. Sepsis Event Note (ED) - Evaluation Sepsis Screening Result: No Definite Risk
== END 2020-06-24 22:59 | disposition home or self-care (01) ==
LOC: JP.ED 21:03
DX: L03.116 Cellulitis of left lower limb (principal); E78.00 Pure hypercholesterolemia, unspecified; E11.9 Type 2 diabetes mellitus without complications; F32.9 Major depressive disorder, single episode, unspecified; M19.90 Unspecified osteoarthritis, unspecified site; J44.9 Chronic obstructive pulmonary disease, unspecified; Z79.4 Long term (current) use of insulin; Z79.899 Other long term (current) drug therapy; Z79.01 Long term (current) use of anticoagulants; Z87.891 Personal history of nicotine dependence
CPT/HCPCS: 36415; 80053; 85025; 96365; 99283; J3490; J7050; 99284